=== PATIENT | male | born 1950 | race Caucasian/White ===

== ENCOUNTER → 2025-04-29 07:20 | Outpatient (REF) | payer MEDICARE, SELFPAY | LOC: RAD 07:20 | PROVIDERS: ATTENDING PHYSICIAN Surgery Vascular Surgery; FAMILY PHYSICIAN Internal Medicine | DX: I73.9 Peripheral vascular disease, unspecified (principal) | CPT/HCPCS: 93970 ==

== ENCOUNTER 2025-06-17 06:15 | Inpatient (IN) | payer MEDICARE, SELFPAY ==
[2025-06-14 10:15] LABS: Hematocrit 42.8 % (39.0-52.0); Hemoglobin 13.8 g/dL (13.0-18.0); Mean Corp Hgb Conc. 32.2 g/dL (33.0-37.0); Mean Corpuscular Volume 97.5 fL (80.0-94.0); Nucleated Red Blood Cells % 0 % (-); Platelet Count 235 10^3/uL (130-400); Red Cell Dist. Width 14.3 % (11.5-14.5)
[2025-06-14 10:23] LABS: INR 1.06; PT 14.1 Sec (11.4-14.6)
[2025-06-14 10:24] LABS: APTT 27.2 Sec (23.4-35.0)
[2025-06-14 10:42] LABS: Blood Urea Nitrogen 34 mg/dl (9-20); Calcium 9.5 mg/dl (8.4-10.2); Carbon Dioxide 26 mmol/L (22-30); Chloride 109 mmol/L (98-107); Glucose 105 mg/dl (70-99); Potassium 4.2 mmol/L (3.5-5.1); Sodium 140 mmol/L (135-145); eGFR 58.01
[2025-06-17] VITALS (9 sets, daily range): BP systolic 103–132; BP diastolic 57–67; BMI 31.2; BMI 30.9
[2025-06-17] MEDS: PERIDEX 0.12% ORAL RINSE 15 ML PO (06:50)
[2025-06-17] MEDS: BACTROBAN NASAL 1 GRAM NASAL (06:50)
--- NOTE | 2025-06-17 07:01 | W.SUR.PREOP ---
Pre-Operative Surgical Note
-
I have examined this patient prior to the performance of the scheduled procedure.
The patient's condition is unchanged from the time of the current History and
Physical and the patient is able to undergo the scheduled procedure.
--- NOTE | 2025-06-17 11:40 | OR.RPT ---
Operative Report
Operative Report
PROCEDURE DATE: 06/17/2025
Preoperative diagnosis:
1. Severe peripheral arterial disease.
2. Possible ischemic rest pain right leg.
Postoperative diagnosis: Same
Procedure: Right femoral to above-knee popliteal artery bypass with ipsilateral nonreversed greater saphenous vein conduit.
Surgeon: Kyle
Insurance Biller: ALEJANDRO Jacobo, required for all aspects of procedure including assistance with traction/gely, following a suture line, assistance with closure.
Complications: None
Anesthesia: General
Indications for procedure:
Patient with symptoms of pain in the right calf. Seems almost like an ischemic rest pain. Had significant peripheral arterial disease. Had nonhealing patch of reddened skin (no open ulceration though). Appeared like chronic venous changes.
However the amount of pain was atypical. In addition he described nighttime rest pain in that calf and having to get up or hang it down to improve it. Chronic long segment SFA occlusion but he did have common femoral and iliac plaque. Discussed
with him that extensive endarterectomy likely would not be easily feasible due to the lack of endpoints. Therefore planned femoral to distal bypass. Based on skin changes below the knee I favored bypass into the popliteal artery above the knee.
There was some mild plaque in the artery on CT scan imaging, but appeared reasonable. Risk/benefits/alternatives also discussed. Patient understood and wished to proceed.
Description of procedure:
Patient was identified brought to the operating room placed on the table in supine position. After the adequate administration of anesthesia the was prepped and draped in the standard surgical fashion. A standard preoperative timeout was
undertaken and everybody was in agreement the plan. A longitudinal incision was made in the right groin that was carried through skin subcutaneous tissue with the electrocautery. I dissected down to the level of the inguinal ligament. As I did so
any lymphatic type vessels were structures were ligated between silk ties and divided. I then dissected the common femoral artery as it emerged from underneath the inguinal ligament. I carefully circumferentially dissected here proximally and
passed a vessel loop around it. There was posterior plaque but it was somewhat soft and the remainder of the wall and had a reasonable pulse. I felt that this would be a proximal clamp point. I now continued dissection down the common femoral to
the bifurcation of the femoral vessels. The proximal SFA was dissected. There was an eccentric plaque near the origin as noted on CT scan, but just beyond that of the artery softened. The pulse did not extend into the SFA beyond here. I
carefully dissected the SFA here where it was softer and passed a vessel loop around. I then carefully dissected the origin of the profunda. I circumferentially dissected it and passed a vessel loop around it which was double looped but not yet
tightened.
Now I turned my attention to the distal thigh. I made a longitudinal incision in the medial distal thigh just proximal to the knee which was carried through skin subcutaneous tissue with the electrocautery. Next, I reflected the sartorius muscle
posteriorly and in the loose areolar fatty tissue, identified the popliteal artery superiorly. I carefully dissected away from the surrounding structures take great care to avoid any injury to the structures. I passed a vessel loop around the
proximally. I then dissected it for a segment and passed the vessel pointed distally. The segment was noted to be relatively soft and correlated likely to the soft area noted on CT scan imaging.
Now I had proximal and distal arterial exposure. I now turned my attention to harvesting the greater saphenous vein. Longitudinal skip type incisions were made in the thigh from proximally to distally. The greater saphenous vein was carefully
dissected out of its bed and any branches were ligated between silk ties and clips and then divided to allow for mobilization out of the bed. Once I dissected a suitable segment of greater saphenous vein, I then placed a 2-0 silk suture ligature
proximally and ligated the vein. This was a few centimeters distal to the saphenofemoral junction. I then ligated the vein distally with a heavy silk tie and a clip. I then transected the vein proximally distally. I distended under heparinized
saline and a distended very well.
I now uses a Abe tunneler to create a subsartorial tunnel. I now gave the patient 6008 symmetries heparin. Once this had circulated I tightened my double loop vessel loop on the profunda, and placed a Derra clamp on the proximal common femoral
artery. I now elected to transect the SFA since it was chronically occluded. Therefore I ligated the SFA distally in my field here in the groin. This was done with a heavy silk tie. Next I transected the artery. There was a bit of plaque here
at the origin which I was able to jerson out. Once I did that I was able to see that there was some circumferential eccentric plaque in the distal common femoral/origin of the SFA as noted on CT scan imaging but did not appear to cause any
significant stenosis. I gently placed a right angle through here to confirm that the lumen was widely patent. I therefore then spatulated this origin of the SFA, and then brought my vein into place. The vein was similarly spatulated and a
spatulated end-to-end anastomosis was fashioned using a running 6-0 Prolene suture. I completed and tied down my suture line. Next I released my Vesseloops and clamps on the [place] arterial system. There is now excellent pulsatile flow into the
vein graft. In fact the vein was heavily pulsatile suggesting that there was no residual valves that were patent. However to be sure I ran an mL valvulotome to valvulotomy eyes, and as suspected there was no valves. There was excellent pulsatile
flow in the vein now. I marked the anterior surface under distention to avoid any kinking or twisting and then passed it through my precreated tunnel.
I now placed a clamp on the distal above-knee popliteal artery and ligated the artery proximally with a heavy silk tie and a suture ligature as well. I then transected the popliteal artery here. The lumen was nicely patent. I then spatulated
this, and then trimmed and spatulated the vein graft. I then sewed an end-to-end spatulated anastomosis using a running 6-0 Prolene suture. Prior to completing and tying down the suture line I backbled the [place] popliteal artery and I flushed out
the graft by temporarily releasing the clamp I had placed on the proximal vein graft during anastomosis. I then flushed heparinized saline. I then completed and tied down my suture line. Now I released my clamps and there was excellent pulsatile
flow in the vein graft and in the popliteal artery distally anastomosis. Doppler confirmed an excellent signal in the popliteal artery as well as a significant graft augmented signal. At this point I was very satisfied.
Meticulous hemostasis was undertaken. Protamine was given to reverse the heparin. Incisional sites were irrigated. Arterial exposure sites were then closed in layers using 2-0 Vicryl followed by 3-0 Vicryl running suture followed by skin clips.
(Groin incision was closed with 2 layers of 2-0 Vicryl). The saphenectomy site was then closed with 3-0 Vicryl followed by skin clips. Dressings were applied. The patient tolerated procedure well. All sponge, needle, instrument counts were
correct at the end of the case. The patient was transported to recovery room in stable condition.
[2025-06-17 11:51] LABS: Glucose - Point of Care 132 mg/dl (70-99)
[2025-06-17 12:12] LABS: Hematocrit 35.0 % (39.0-52.0); Hemoglobin 11.8 g/dL (13.0-18.0); Mean Corp Hgb Conc. 33.7 g/dL (33.0-37.0); Mean Corpuscular Volume 96.7 fL (80.0-94.0); Platelet Count 198 10^3/uL (130-400); Red Cell Dist. Width 14.3 % (11.5-14.5)
[2025-06-17 12:31] LABS: Blood Urea Nitrogen 25 mg/dl (9-20); Calcium 8.1 mg/dl (8.4-10.2); Carbon Dioxide 24 mmol/L (22-30); Chloride 113 mmol/L (98-107); Estimated Creatinine Clearance 57 ml/min; Glucose 133 mg/dl (70-99); Potassium 4.6 mmol/L (3.5-5.1); Sodium 138 mmol/L (135-145); eGFR > 60.00
[2025-06-17] MEDS: NSS 1000 IV ×3 (13:06→23:37)
[2025-06-17] MEDS: ASPIR LOW (ENTERIC COATED) 81 MG PO (13:06)
[2025-06-17 13:09] LABS: Magnesium 1.8 mg/dl (1.6-2.3)
[2025-06-17 13:24] LABS: INR 1.17; PT 15.4 Sec (11.4-14.6)
[2025-06-17 13:25] LABS: APTT 30.4 Sec (23.4-35.0)
--- NOTE | 2025-06-17 13:37 | PTCARENOTE ---
Addendum entered by Hilary Mariee RN 06/17/25 13:39:
bolden draining yellow urine, ivf infusing as per order
Original Note:
pt received from pacu- aox4, 4LNC, sb on monitor. ekg completed, labs sent per order. left radial zeke zeroed and functioning. pt with no complaints at this time. right leg red in color, unchanged per private duty rn, right doppler pulses, good sensation.
dressings with old drainage noted. katelin intact and functioning. all safety precautions in place. oriented to room, verbalized understanding. call almodovar within reach.
--- NOTE | 2025-06-17 15:27 | CON.INTV ---
Consultation
Consultation Request
Date/Time Consultation Requested: 06/17/2025
Date/Time Consultation Performed: 06/17/2025
Medical History
-
Chief Complaint: Limb pain
History of Present Illness:
Patient is a very pleasant 74-year-old gentleman with known history of coronary artery disease, carotid stenosis, aortic aneurysm and was evaluated by vascular surgery as outpatient for symptoms of claudication as well as nonhealing ulcer. Patient
subsequently was brought to the hospital today and had femoral to above-knee popliteal artery bypass and postsurgery was admitted to the ICU. Implementation Services Analyst consultation was requested for further input.
PMH:
CAD. h/o [place]
Carotid stenosis
PVD
HLD
AAA
CKD
SH: Smokes since teenage, currently 10 cig/d.
Allergies / Home Medications
Allergies
Allergy/AdvReac Type Severity Reaction Status Date / Time
No Known Allergies Allergy Verified 06/17/25 07:21
Home Medications
�Medication �Instructions �Recorded �Confirmed �Last Taken �Type
atorvastatin 80 mg tablet 80 mg PO DAILY High Cholesterol 06/15/25 06/17/25 06/16/25 08:00 History
cholecalciferol (vitamin D3) 25 25 mcg PO DAILY Supplement 06/15/25 06/17/25 06/16/25 08:00 History
mcg (1,000 unit) tablet (Vitamin
D3)
clopidogrel 75 mg tablet 75 mg PO DAILY Blood Clot 06/15/25 06/17/25 06/16/25 08:00 History
Prevention/Tx
losartan 50 mg-hydrochlorothiazide 1 tab PO DAILY Blood Pressure 06/15/25 06/17/25 06/16/25 08:00 History
12.5 mg tablet
metoprolol succinate 25 mg 25 mg PO DAILY Heart 06/15/25 06/17/25 06/16/25 08:00 History
tablet,extended release 24 hr Disease/Condition
zaxgggfhrycc-diu-qaxjo acid-vit 1 tab PO DAILY Supplement 07/06/17/25 06/16/25 08:00 History
K-lycop 400 mcg-20 mcg-370 mcg
tablet (Men's 50 Plus Multivitamin)
Review of Systems
-
Hematologic/Lymphatic: Other (All 14 systems reviewed and negative except as stated above in the history of present illness.)
Vitals / Labs / Diagnostic Testing
Vital Signs
Temp Pulse Resp BP Pulse Ox
98.7 F 67 26 125/57 96
06/17/25 13:25 06/17/25 15:00 06/17/25 15:00 06/17/25 14:00 06/17/25 15:00
Lab Data
06/17/25 11:58
06/17/25 11:58
Laboratory Results
06/17/25
12:51
PT 15.4 H
INR 1.17
APTT 30.4
Diagnostic Testing:
Physical Exam
-
HEENT: Normocephalic
Cardiovascular: S1/S2 and Peripheral Edema
Respiratory: Wheeze (Faint end expiratory wheezing, AP diameter increased, expiration prolonged)
GI: Soft and Non Distended
Neurology: Awake and Alert
General: Comfortable
Assessment
-
Patient is s/p Right femoral to above-knee popliteal artery bypass with ipsilateral nonreversed greater saphenous vein conduit by vascular surgery service, POD #0
Continue observation following procedure
Follow neurovascular checks per protocol
ASA, Plavix, metoprolol and atorvastatin.
Follow BP monitoring and parameters as set by primary team
Cardiac history noted, prior history of myocardial infarction
Monitor on telemetry
Pain control per protocol
RASS goal 0
No prior history of pulmonary disease, however lifelong smoking history and I suspect patient has underlying emphysema/COPD.
CXR reviewed, suggestive of mild interstitial changes in the lower lobes.
No prior PFTs for review
Encouraged IS
Diet advancement per protocol
Aspiration precautions
GI prophylaxis: Protonix
Creat at baseline, follow UO
Critical I/Os
Void trials
Replete electrolytes as needed
No signs/symptoms suspicious for infectious etiology at this time
Will observe off antibiotics for now
Follow temperatures/CBC
Hb and platelets postoperatively stable
DVT prophylaxis recommended if not contraindicated based on procedural history -- heparin SQ and mechanical SCDs
Encouraged OOB/PT/OT/ambulation once cleared by surgical team
Other medical diagnoses:
- H/o CAD
- Pulmonary nodule, 4 mm. Out patient follow up
- CKD
- AAA
- Carotid stenosis
- History of smoking, suspect underlying COPD. Imaging evidence of emphysema, mild end expiratory wheezing and occasional cough. Recommend out patient follow up with Pulmonary clinic. Add PRN Albuterol
Critical Care time 45 mins -- The patient is admitted for acute critical illness for the treatment of vital organ failure and/or prevention of further life-threatening conditions. Total care includes time spent in review of history, physical exam,
medications, hemodynamic/ventilator parameters, laboratory data, imaging and discussion with house staff, pharmacy, respiratory therapy, process laboratory specialist, and nursing.
Data:
ECHO 03/2023: Normal LV size and function, mild concentric LVH. Normal RV. No significant valvular disease.
CT Thorax 08/2024: Stable 4 mm nodule, emphysematous changes
CTA Aorta 12/2024: 4.6 cmm infra-renal AAA. High grade stenosis of Left common iliac artery
LHC 03/2023: Left main normal. LAD proximal 90% stenosis. LCx ostial 50% with distal 70%. RCA diffuse proximal and 95% stenosis mid vessel
[2025-06-17] MEDS: HEPARIN 5000 UNITS SC ×2 (16:28→23:13)
[2025-06-17] MEDS: TYLENOL 650 MG PO (16:28)
--- NOTE | 2025-06-17 23:41 | PTCARENOTE ---
UOP ranging from 20-45ml last few hours, ICU TALEND DEVELOPER aware, 1L NS bolus ordered. neurovascular checks ongoing, aquacell x3 with small amt drainage, + RLE DP and PT pulses w/ Doppler. pt denies pain/numbness/tingling. call almodovar in reach.
[2025-06-18] VITALS (16 sets, daily range): BP systolic 103–138; BP diastolic 51–78; BMI 31.0
[2025-06-18 04:56] LABS: Hematocrit 33.1 % (39.0-52.0); Hemoglobin 10.8 g/dL (13.0-18.0); Mean Corp Hgb Conc. 32.6 g/dL (33.0-37.0); Mean Corpuscular Volume 99.1 fL (80.0-94.0); Platelet Count 194 10^3/uL (130-400); Red Cell Dist. Width 13.9 % (11.5-14.5)
[2025-06-18 05:02] LABS: INR 1.19; PT 15.6 Sec (11.4-14.6)
[2025-06-18 05:03] LABS: APTT 29.9 Sec (23.4-35.0)
[2025-06-18 05:20] LABS: Blood Urea Nitrogen 23 mg/dl (9-20); Calcium 7.9 mg/dl (8.4-10.2); Carbon Dioxide 22 mmol/L (22-30); Chloride 114 mmol/L (98-107); Estimated Creatinine Clearance 68 ml/min; Glucose 128 mg/dl (70-99); Potassium 4.3 mmol/L (3.5-5.1); Sodium 139 mmol/L (135-145); eGFR > 60.00
--- NOTE | 2025-06-18 06:09 | PTCARENOTE ---
AM labs sent, neurovascular checks unchanged, pt offers no complaints. UOP improved, see flowsheet. call almodovar in reach
[2025-06-18] MEDS: PROTONIX 40 MG PO (07:57)
[2025-06-18] MEDS: LIPITOR 80 MG PO (07:57)
[2025-06-18] MEDS: COZAAR 50 MG PO (07:57)
[2025-06-18] MEDS: ORETIC 12.5 MG PO (07:57)
[2025-06-18] MEDS: HEPARIN 5000 UNITS SC ×3 (07:57→23:09)
[2025-06-18] MEDS: PLAVIX 75 MG PO (07:57)
[2025-06-18] MEDS: VITAMIN D3 (cholecalciferol) 25 MCG PO (07:57)
[2025-06-18] MEDS: TOPROL XL 25 MG PO (07:57)
[2025-06-18] MEDS: THERAGRAN 1 TABLET PO (07:57)
[2025-06-18] MEDS: ASPIR LOW (ENTERIC COATED) 81 MG PO (07:57)
--- NOTE | 2025-06-18 08:15 | PTCARENOTE ---
pt received from previous rn- aox4, nsr to sb on monitor, left radial zeke zeroed and functioning, positional at times. pt on 2LNC. pt denies pain or has any complaints at this time. right leg katelin intact, aquacel dressings with old drainage noted.
pt able to move extremity, good sensation, doppler pulses. all safety precautions in place, call almodovar within reach. pt verbalized understanding to education and plan of care.
--- NOTE | 2025-06-18 11:51 | CM ---
POD #1, fem-pop bypass. Initial assessment completed with nellie who lives with his and step-daughter in a 2 story home plus basement with B/B on 1st, 4 steps to enter. 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
Patient also has a RW in the home. He does drive. No in-home services. He was in the [facility]. No HC-POA. PCP is Dr. Adelia Gonsalez and Pharmacy is [facility] in [place]. Discharge POC: TBD.
--- NOTE | 2025-06-18 12:16 | W.PN.INTV ---
Today's Communication / Plan
Recommendations
- Will arrange outpatient pulmonary follow-up
- Truck Striker service will sign off once patient is transferred out of ICU, please call as needed
Assessment
-
Patient is s/p Right femoral to above-knee popliteal artery bypass with ipsilateral nonreversed greater saphenous vein conduit by vascular surgery service, POD #1
Continue observation following procedure
Follow neurovascular checks per protocol
ASA, Plavix, metoprolol and atorvastatin.
Follow BP monitoring and parameters as set by primary team
Cardiac history noted, prior history of myocardial infarction
Monitor on telemetry
Pain control per protocol
RASS goal 0
No prior history of pulmonary disease, however lifelong smoking history and I suspect patient has underlying emphysema/COPD.
CXR reviewed, suggestive of mild interstitial changes in the lower lobes.
No prior PFTs for review
Encouraged IS
Diet advancement per protocol
Aspiration precautions
GI prophylaxis: Protonix
Creat at baseline, follow UO
Critical I/Os
Void trials
Replete electrolytes as needed
No signs/symptoms suspicious for infectious etiology at this time
Will observe off antibiotics for now
Follow temperatures/CBC
Hb and platelets postoperatively stable
DVT prophylaxis recommended if not contraindicated based on procedural history -- heparin SQ and mechanical SCDs
Encouraged OOB/PT/OT/ambulation once cleared by surgical team
Other medical diagnoses:
- H/o CAD
- Pulmonary nodule, 4 mm. Out patient follow up
- CKD
- AAA
- Carotid stenosis
- History of smoking, suspect underlying COPD. Imaging evidence of emphysema, mild end expiratory wheezing and occasional cough. Recommend out patient follow up with Pulmonary clinic. Add PRN Albuterol. We discussed about empirically starting a
LAMA/LABA therapy, patient reluctant to initiate any inhalers and is agreeable for outpatient pulmonary follow-up. Information added to the discharge section.
Critical Care time 42 mins -- The patient is admitted for acute critical illness for the treatment of vital organ failure and/or prevention of further life-threatening conditions. Total care includes time spent in review of history, physical exam,
medications, hemodynamic/ventilator parameters, laboratory data, imaging and discussion with house staff, pharmacy, respiratory therapy, cattle care worker, and nursing.
Data:
ECHO 03/2023: Normal LV size and function, mild concentric LVH. Normal RV. No significant valvular disease.
CT Thorax 08/2024: Stable 4 mm nodule, emphysematous changes
CTA Aorta 12/2024: 4.6 cmm infra-renal AAA. High grade stenosis of Left common iliac artery
LHC 03/2023: Left main normal. LAD proximal 90% stenosis. LCx ostial 50% with distal 70%. RCA diffuse proximal and 95% stenosis mid vessel
Subjective Dataa
Subjective Data
Date of Service:
Date of Service: June 18, 2025
Subjective:
Patient comfortably lying in bed in no acute distress. Saturating well on room air. Hemodynamically stable not on any pressors.
Review of Systems
Genitourinary: Other (All 14 systems reviewed and negative except as stated above in the history of present illness.)
Objective Data
Data Reviewed
Vital Signs / I&O / Oxygen:
Vital Signs
Temp Pulse Resp BP Pulse Ox
98.6 F 56 19 138/65 97
06/18/25 11:55 06/18/25 10:00 06/18/25 10:00 06/18/25 08:00 06/18/25 10:00
Intake and Output
06/17/25 06/18/25 06/19/25
06:59 06:59 06:59
Intake Total 2320 / 2400 320 / 320
Output Total 1115 / 1190 300 / 300
Balance 1205 / 1210 20 / 20
SaO2 97
Nasal Cannula flow liters per 2
minute
Physical Exam
General: Comfortable
HEENT: Normocephalic
Cardiovascular: S1-S2
Respiratory: Wheeze (Faint end expiratory wheezing)
GI: Soft and Non Distended
Neurology: Awake and Alert
Skin: Warm
Labs/Micro/Reports
Lab Data
06/18/25 04:39
06/18/25 04:39
Laboratory Results
06/17/25 06/18/25
12:51 04:39
PT 15.4 H 15.6 H
INR 1.17 1.19
APTT 30.4 29.9
[2025-06-18] MEDS: ROXICODONE 5 MG PO ×2 (12:49→23:09)
--- NOTE | 2025-06-18 12:51 | PTCARENOTE ---
a line removed per order, ivf d/c. pt oob with 3 assist and cane to chair. bolden removed, pt voided.
--- NOTE | 2025-06-18 13:46 | W.PN.VS ---
Addendum entered and electronically signed by Wu Hernández III, MD 06/18/25 20:36:
This patient was seen and examined in collaboration with KENDALL Kaiser. I agree with the history and physical exam as well as the assessment and plan. I have the following additions:
Overall doing well postop day 1 from right lower extremity bypass
Agree with plan as detailed
Signed:
Wu Hernández III, MD
Vascular Surgery
[facility]
Original Note:
Today's Communication / Plan
-
See below, plan reviewed with attending Dr. Wu Hernández III.
Assessment/Plan
-
Assessment: 74-year-old male POD #1 Right femoral to above-knee popliteal artery bypass with ipsilateral nonreversed greater saphenous vein conduit.
Plan:
Discontinue Hernández catheter
Discontinue arterial line
Discontinue IV fluids
Continue DAPT of 81 mg p.o. daily with Plavix 75 mg p.o. daily while in the immediate postoperative period, will transition to Compass protocol of 81 mg p.o. daily with low-dose Xarelto 2.5 mg p.o. twice daily upon discharge
OOB to chair today
Physical therapy tomorrow
Continue to encourage incentive spirometry
Subjective Data
-
Date of Service: June 18, 2025
Patient seen and examined at bedside, offers no complaints. Reports adequate postoperative pain management. Denies nausea, vomiting, fever, and chills. Reports tolerating p.o. diet.
Objective Data
-
Vital Signs
Temp Pulse Resp BP Pulse Ox
98.6 F 58 22 125/54 97
06/18/25 11:55 06/18/25 13:00 06/18/25 13:00 06/18/25 13:00 06/18/25 10:00
Intake and Output
06/17/25 06/18/25 06/19/25
06:59 06:59 06:59
Intake Total 2320 / 2400 480 / 480
Output Total 1115 / 1190 600 / 600
Balance 1205 / 1210 -120 / -120
Intake:
Oral fluids 830 / 830
IV fluids (Total) 1490 / 1570 480 / 480
NSS 1490 / 1570 480 / 480
Output:
Urine, Hernández 1115 / 1190 600 / 600
Lab Results
06/18/25 04:39
06/18/25 04:39
Calcium 7.9 mg/dl (8.4-10.2) L 06/18/25 04:39
Phosphorus 3.8 mg/dl (2.5-4.5) 06/17/25 11:58
Magnesium 1.8 mg/dl (1.6-2.3) 06/17/25 11:58
Physical Exam
-
No apparent distress, resting in bed comfortably
No tachycardia
No dyspnea on room air
ABD flat, nontender, nondistended
Right lower extremity surgical dressing dry and intact, trace edema right lower extremity, all compartments soft, no evidence of hematoma, right DP and PT Doppler signal, right foot warm
Hernández draining clear yellow urine
--- NOTE | 2025-06-18 17:19 | PTCARENOTE ---
assessment unchanged, pt oob to chair for approx 5 hours. no complaints at this time.
--- NOTE | 2025-06-18 20:30 | PTCARENOTE ---
Rec'd pt from previous shift resting in bed with no reported pain. Pt moving self in bed/changing position. Alert and oriented, pleasant. Afebrile. NSR on monitor. Pulses palpable, no edema. Doppler signals B/L lower extremities DP/PT. RLE red/warm.
No numbness/tingling per patient. Q4h checks. 2L nasal cannula 94%Sat, expiratory wheeze and nonproductive cough as previously noted. Pt current smoker. Educated on cessation. Tolerating cholesterol lowering diet. Hernández removed on previous shift.
Voiding in urinal. Aquacell dressing on RLE as documented. SHIRLEY X1. Will monitor.
[2025-06-19] VITALS (21 sets, daily range): BP systolic 97–138; BP diastolic 52–103; PULSE 78–103; O2SAT 93
--- NOTE | 2025-06-19 00:30 | PTCARENOTE ---
No change in previous assessment. Oxy given for moderate pain. Pulses via doppler remain strong. Will monitor.
[2025-06-19 05:27] LABS: Hematocrit 33.8 % (39.0-52.0); Hemoglobin 10.9 g/dL (13.0-18.0); Mean Corp Hgb Conc. 32.2 g/dL (33.0-37.0); Mean Corpuscular Volume 98.8 fL (80.0-94.0); Platelet Count 199 10^3/uL (130-400); Red Cell Dist. Width 14.6 % (11.5-14.5)
[2025-06-19 05:49] LABS: Blood Urea Nitrogen 22 mg/dl (9-20); Calcium 8.3 mg/dl (8.4-10.2); Carbon Dioxide 25 mmol/L (22-30); Chloride 110 mmol/L (98-107); Estimated Creatinine Clearance 68 ml/min; Glucose 99 mg/dl (70-99); Magnesium 2.0 mg/dl (1.6-2.3); Potassium 4.7 mmol/L (3.5-5.1); Sodium 139 mmol/L (135-145); eGFR > 60.00
[2025-06-19] MEDS: ROXICODONE 5 MG PO ×2 (06:44→10:49)
--- NOTE | 2025-06-19 07:45 | PTCARENOTE ---
Assumed care of patient. Pt rec'd A&Ox3. Pleasant. Rec'd usman for right groin pain...see mar. S1 S2 reg w/ NSR on monitor. RLL red and warm...DP/PT's by doppler. Left leg pale and cool...DP by doppler...unable to obtain PT by doppler. Joanna
Donnell ALEXANDRE aware. q4h neurovascular checks per MD orders. Rec'd on R/A...sats 93-94%. Moist NPC. Lungs diminished in bases...clear right...left w/ exp wheezing throughout. Abdomen round. +BS. Voids in urinal. Right groin w/ SHIRLEY drsg. Right leg
w/ 3 aquacell dressings...drainage noted. Intact sacral optifoam. Takes po meds w/o issue. On cholesterol lowering diet. VS documented. Call almodovar within reach. Will continue to monitor.
--- NOTE | 2025-06-19 08:15 | W.PN.VS ---
Today's Communication / Plan
-
Patient seen and examined at bedside with attending Dr. Tesfaye, below plan reviewed with attending.
Assessment/Plan
-
Assessment: 74-year-old male POD #2 Right femoral to above-knee popliteal artery bypass with ipsilateral nonreversed greater saphenous vein conduit.
Plan:
Continue DAPT of 81 mg p.o. daily with Plavix 75 mg p.o. daily while in the immediate postoperative period, will transition to Compass protocol of 81 mg p.o. daily with low-dose Xarelto 2.5 mg p.o. twice daily upon discharge
OOB to chair, with progression to ambulation as tolerated
Physical therapy eval
Downgrade to telemetry
Continue to encourage incentive spirometry
Subjective Data
-
Date of Service: June 19, 2025
Patient seen examined bedside, offers no complaints. Denies nausea, vomiting, fever, and chills. Tolerating p.o. diet. Reports adequate postoperative pain management.
Objective Data
-
Vital Signs
Temp Pulse Resp BP Pulse Ox
98 F 79 18 130/80 91
06/18/25 23:35 06/19/25 08:02 06/19/25 08:02 06/19/25 08:02 06/19/25 08:02
Intake and Output
06/18/25 06/19/25 06/20/25
06:59 06:59 06:59
Intake Total 2320 / 2400 720 / 720
Output Total 1115 / 1190 1500 / 1500
Balance 1205 / 1210 -780 / -780
Intake:
Oral fluids 830 / 830 240 / 240
IV fluids (Total) 1490 / 1570 480 / 480
NSS 1490 / 1570 480 / 480
Output:
Urine, Hernández 1115 / 1190 1500 / 1500
Lab Results
06/19/25 04:59
06/19/25 04:59
Calcium 8.3 mg/dl (8.4-10.2) L 06/19/25 04:59
Phosphorus 3.8 mg/dl (2.5-4.5) 06/17/25 11:58
Magnesium 2.0 mg/dl (1.6-2.3) 06/19/25 04:59
Physical Exam
-
No apparent distress, resting in bed comfortably
No tachycardia
No dyspnea on room air
ABD flat, nontender, nondistended
Right lower extremity surgical dressing dry and intact, trace edema right lower extremity, all compartments soft, no evidence of hematoma, right DP and PT Doppler signal, right foot warm
[2025-06-19] MEDS: TOPROL XL 25 MG PO (09:57)
[2025-06-19] MEDS: ASPIR LOW (ENTERIC COATED) 81 MG PO (09:57)
[2025-06-19] MEDS: PROTONIX 40 MG PO (09:57)
[2025-06-19] MEDS: ORETIC 12.5 MG PO (09:58)
[2025-06-19] MEDS: PLAVIX 75 MG PO (09:58)
[2025-06-19] MEDS: COZAAR 50 MG PO (09:59)
[2025-06-19] MEDS: VITAMIN D3 (cholecalciferol) 25 MCG PO (09:59)
[2025-06-19] MEDS: LIPITOR 80 MG PO (09:59)
[2025-06-19] MEDS: HEPARIN 5000 UNITS SC ×3 (10:00→23:31)
[2025-06-19] MEDS: THERAGRAN 1 TABLET PO (10:00)
--- NOTE | 2025-06-19 10:30 | PTCARENOTE ---
Seen by PT/OT...OOB in chair...assist x2 and using rolling walker.
--- NOTE | 2025-06-19 10:52 | CM ---
Patient seen at bedside in ICU. Patient for transfer to tele per vascular pa. Patient hoping for discharge home with VN if needed. CM to follow for discharge planning needs.
Plan; home with VN vs SNF; pending pt/ot assessment
--- NOTE | 2025-06-19 13:31 | PTCARENOTE ---
Tx to tele when bed available. Family updated at bedside.
--- NOTE | 2025-06-19 14:28 | PTCARENOTE ---
Report given to RN on 2nd floor. Pt to transfer to Room 2103.
--- NOTE | 2025-06-19 14:55 | PTCARENOTE ---
Telephone report received from QUALITY CONTROL MICROBIOLOGIST Cyn @14:10; patient arrived in bed @14:55, PECO drain minor shadowing, 3 Aquacell dressing moderate shadowing, VSS, doppler use for pulses (see documentation).
[2025-06-20] VITALS (7 sets, daily range): BP systolic 92–126; BP diastolic 59–76; PULSE 69; O2SAT 95
[2025-06-20 06:21] LABS: Hematocrit 33.8 % (39.0-52.0); Hemoglobin 11.1 g/dL (13.0-18.0); Mean Corp Hgb Conc. 32.8 g/dL (33.0-37.0); Mean Corpuscular Volume 97.7 fL (80.0-94.0); Platelet Count 198 10^3/uL (130-400); Red Cell Dist. Width 14.6 % (11.5-14.5)
[2025-06-20 06:48] LABS: Blood Urea Nitrogen 21 mg/dl (9-20); Calcium 8.2 mg/dl (8.4-10.2); Carbon Dioxide 26 mmol/L (22-30); Chloride 107 mmol/L (98-107); Estimated Creatinine Clearance 62 ml/min; Glucose 104 mg/dl (70-99); Potassium 4.2 mmol/L (3.5-5.1); Sodium 136 mmol/L (135-145); eGFR > 60.00
[2025-06-20] MEDS: THERAGRAN 1 TABLET PO (09:25)
[2025-06-20] MEDS: PLAVIX 75 MG PO (09:25)
[2025-06-20] MEDS: ASPIR LOW (ENTERIC COATED) 81 MG PO (09:25)
[2025-06-20] MEDS: TOPROL XL 25 MG PO (09:25)
[2025-06-20] MEDS: VITAMIN D3 (cholecalciferol) 25 MCG PO (09:26)
[2025-06-20] MEDS: LIPITOR 80 MG PO (09:26)
[2025-06-20] MEDS: COZAAR 50 MG PO (09:26)
[2025-06-20] MEDS: ORETIC 12.5 MG PO (09:26)
[2025-06-20] MEDS: PROTONIX 40 MG PO (09:26)
[2025-06-20] MEDS: HEPARIN 5000 UNITS SC ×2 (09:27→16:51)
--- NOTE | 2025-06-20 13:07 | W.PN.VS ---
Today's Communication / Plan
-
No changes
Assessment/Plan
-
Assessment: 74-year-old male POD #3 Right femoral to above-knee popliteal artery bypass with ipsilateral nonreversed greater saphenous vein conduit.
Plan:
Compass protocol of 81 mg p.o. daily with low-dose Xarelto 2.5 mg p.o. twice daily upon discharge
OOB to chair, with progression to ambulation as tolerated
Physical therapy eval
Continue to encourage incentive spirometry
DC planning
Subjective Data
-
Date of Service: June 20, 2025
Seen and examined at bedside. MARTY.
Objective Data
-
Vital Signs
Temp Pulse Resp BP Pulse Ox
98.8 F 70 16 122/74 98
06/20/25 11:00 06/20/25 11:00 06/20/25 11:00 06/20/25 11:00 06/20/25 11:00
Intake and Output
06/19/25 06/20/25 06/21/25
06:59 06:59 06:59
Intake Total 720 / 720 480 / 480
Output Total 1500 / 1500 1800 / 1800 350 / 350
Balance -780 / -780 -1320 / -1320 -350 / -350
Intake:
Oral fluids 240 / 240 480 / 480
IV fluids (Total) 480 / 480
NSS 480 / 480
Output:
Urine, Hernández 1500 / 1500 250 / 250
Urine, Voided 1550 / 1550 350 / 350
Lab Results
06/20/25 04:16
06/20/25 04:16
Calcium 8.2 mg/dl (8.4-10.2) L 06/20/25 04:16
Phosphorus 3.8 mg/dl (2.5-4.5) 06/17/25 11:58
Magnesium 2.0 mg/dl (1.6-2.3) 06/19/25 04:59
Physical Exam
-
RLE warm and well perfused with C/D/I incisions
[2025-06-20] MEDS: ROXICODONE 5 MG PO (15:49)
[2025-06-21] VITALS (9 sets, daily range): BP systolic 92–108; BP diastolic 55–65; PULSE 76
[2025-06-21] MEDS: HEPARIN 5000 UNITS SC ×4 (00:44→23:14)
[2025-06-21] MEDS: ROXICODONE 5 MG PO ×2 (01:21→21:42)
[2025-06-21] MEDS: ORETIC 12.5 MG PO (08:52)
[2025-06-21] MEDS: TOPROL XL 25 MG PO (08:53)
[2025-06-21] MEDS: PROTONIX 40 MG PO (08:54)
[2025-06-21] MEDS: ASPIR LOW (ENTERIC COATED) 81 MG PO (08:54)
[2025-06-21] MEDS: THERAGRAN 1 TABLET PO (08:54)
[2025-06-21] MEDS: VITAMIN D3 (cholecalciferol) 25 MCG PO (08:54)
[2025-06-21] MEDS: LIPITOR 80 MG PO (08:54)
[2025-06-21] MEDS: PLAVIX 75 MG PO (08:54)
[2025-06-21] MEDS: COZAAR 50 MG PO (08:55)
[2025-06-21 09:19] LABS: Hematocrit 33.2 % (39.0-52.0); Hemoglobin 10.9 g/dL (13.0-18.0); Mean Corp Hgb Conc. 32.8 g/dL (33.0-37.0); Mean Corpuscular Volume 96.2 fL (80.0-94.0); Platelet Count 228 10^3/uL (130-400); Red Cell Dist. Width 14.6 % (11.5-14.5)
[2025-06-21 09:32] LABS: Blood Urea Nitrogen 26 mg/dl (9-20); Calcium 8.4 mg/dl (8.4-10.2); Carbon Dioxide 27 mmol/L (22-30); Chloride 106 mmol/L (98-107); Estimated Creatinine Clearance 52 ml/min; Glucose 147 mg/dl (70-99); Potassium 3.8 mmol/L (3.5-5.1); Sodium 137 mmol/L (135-145); eGFR 58.01
--- NOTE | 2025-06-21 10:06 | CM ---
Addendum entered by Nandini Blake 06/21/25 16:43:
Cost of Xarelto is $874 for a 90 day supply.
Original Note:
Chart reviewed and case management associate met with patient and reviewed physical therapy notes, patient is agreeable to rehab, options reviewed with patient and patient has selected [facility] and [facility], PM&R have been consulted, message left with
[facility]. Referrals sent to rehab facilities through [facility]. .
Plan; Acute rehab at [facility] or [facility] referrals sent Auth will be required.
--- NOTE | 2025-06-21 11:15 | W.PN.VS ---
Addendum entered and electronically signed by KENDALL Kaiser 06/21/25 17:17:
Did not administer Lasix as patient with SBP in the low 100s/90s, hector wrap place to knee, will monitor.
Original Note:
Today's Communication / Plan
-
Plan reviewed with attending Dr. Wu Hernández III
Assessment/Plan
-
Assessment: 74-year-old male POD #3 Right femoral to above-knee popliteal artery bypass with ipsilateral nonreversed greater saphenous vein conduit.
Plan:
Compass protocol of 81 mg p.o. daily with low-dose Xarelto 2.5 mg p.o. twice daily upon discharge, consult placed to case management to aguilar out l Xarelto
OOB to chair, with progression to ambulation as tolerated
Physical therapy eval
Continue to encourage incentive spirometry
Patient noted with increased swelling to right lower extremity, mild from baseline, one-time dose of Lasix and leg wrap from base of toes to knee
DC planning, case management consult placed for SNF versus rehab placement per recommendations of physical therapy
Physiatry consultation pending
Subjective Data
-
Date of Service: June 21, 2025
Patient seen and examined at bedside, offers no complaints. Does endorse limited movement of right lower extremity related to pain otherwise at rest pain is well-managed. Denies nausea, vomiting, fever, and chills.
Objective Data
-
Vital Signs
Temp Pulse Resp BP Pulse Ox
98.4 F 78 18 106/66 97
06/21/25 07:10 06/21/25 08:55 06/21/25 07:10 06/21/25 08:55 06/21/25 07:10
Intake and Output
06/20/25 06/21/25 06/22/25
06:59 06:59 06:59
Intake Total 480 / 480 480 / 480
Output Total 1800 / 1800 1000 / 1000
Balance -1320 / -1320 -520 / -520
Intake:
Oral fluids 480 / 480 480 / 480
Output:
Urine, Hernández 250 / 250
Urine, Voided 1550 / 1550 1000 / 1000
Lab Results
06/21/25 09:07
06/21/25 09:07
Calcium 8.4 mg/dl (8.4-10.2) 06/21/25 09:07
Phosphorus 3.8 mg/dl (2.5-4.5) 06/17/25 11:58
Magnesium 2.0 mg/dl (1.6-2.3) 06/19/25 04:59
Physical Exam
-
No apparent distress, resting in bed comfortably
No tachycardia
No dyspnea on room air
ABD flat, nontender, nondistended
Right lower extremity surgical dressing katelin dressing dry and intact, +1 edema right lower extremity, all compartments soft, no evidence of hematoma, right DP and PT Doppler signal, right foot warm, all Aquacel dressings removed, staple sites clean
dry and intact and well-approximated
[2025-06-21] MEDS: DULCOLAX RECTAL (11:44)
[2025-06-21] MEDS: KLOR-CON 20 MEQ PO (16:49)
--- NOTE | 2025-06-22 02:22 | DOWNTIME ---
There was a [employer] Operator Downtime on 06/22/2025 from 0100 to 06/22/2025 at 0220. Downtime documentation of patient's care, including medication administrations, has been reconciled in the electronic record per guidelines. Refer to the
patient's paper chart under the miscellaneous tab to see printed paper medication records and downtime forms.
[2025-06-22 03:36] VITALS: BP 99/55
[2025-06-22 06:29] LABS: Blood Urea Nitrogen 34 mg/dl (9-20); Calcium 8.3 mg/dl (8.4-10.2); Carbon Dioxide 26 mmol/L (22-30); Chloride 105 mmol/L (98-107); Estimated Creatinine Clearance 52 ml/min; Glucose 110 mg/dl (70-99); Potassium 4.3 mmol/L (3.5-5.1); Sodium 136 mmol/L (135-145); eGFR 58.01
[2025-06-22 07:40] VITALS: BP 88/58
--- NOTE | 2025-06-22 08:02 | W.PN.VS ---
Addendum entered and electronically signed by Wu Hernández III, MD 06/22/25 18:02:
This patient was seen and examined in collaboration with KENDALL Kaiser. I agree with the history and physical exam as well as the assessment and plan.
Signed:
Wu Hernández III, MD
Vascular Surgery
[facility]
Original Note:
Today's Communication / Plan
-
Patient seen and examined at bedside with Dr. Wu Hernández III, below plan reviewed with attending.
Assessment/Plan
-
Assessment: 74-year-old male POD #4 Right femoral to above-knee popliteal artery bypass with ipsilateral nonreversed greater saphenous vein conduit.
Plan:
Unfortunately Kiran will cost patient $824 for 90-day supply, he has expressed that he cannot afford this so we will continue DAPT of Plavix 75 mg p.o. daily and aspirin 81 mg p.o. daily
OOB to chair, with progression to ambulation as tolerated
Physical therapy eval
Continue to encourage incentive spirometry
Patient noted with increased swelling to right lower extremity yesterday, much improved following Richar wrap compression to knee and elevation
Patient is cleared for discharge awaiting rehab placement
Physiatry consultation pending
Subjective Data
-
Date of Service: June 22, 2025
Patient seen and examined at bedside, reports eagerness for next steps to discharge. Reports adequate postoperative pain management. Offers no complaints
Objective Data
-
Vital Signs
Temp Pulse Resp BP Pulse Ox
98.7 F 70 18 99/55 93
06/22/25 03:36 06/22/25 03:36 06/22/25 03:36 06/22/25 03:36 06/22/25 03:36
Intake and Output
06/21/25 06/22/25 06/23/25
06:59 06:59 06:59
Intake Total 480 / 480 240 / 240 480 / 480
Output Total 1000 / 1000 350 / 350
Balance -520 / -520 -110 / -110 480 / 480
Intake:
Oral fluids 480 / 480 240 / 240 480 / 480
Output:
Urine, Voided 1000 / 1000 350 / 350
Other:
Number of approximated SMALL 1
amounts of urine
Number of approximated MODERATE 1 2
amounts of urine
Lab Results
06/21/25 09:07
06/22/25 05:31
Calcium 8.3 mg/dl (8.4-10.2) L 06/22/25 05:31
Phosphorus 3.8 mg/dl (2.5-4.5) 06/17/25 11:58
Magnesium 2.0 mg/dl (1.6-2.3) 06/19/25 04:59
Physical Exam
-
No apparent distress, resting in bed comfortably
No tachycardia
No dyspnea on room air
ABD flat, nontender, nondistended
Right lower extremity surgical dressing katelin dressing dry and intact, trace edema right lower extremity, all compartments soft, no evidence of hematoma, right DP and PT Doppler signal, right foot warm, enid well-approximated
[2025-06-22] MEDS: PROTONIX 40 MG PO (09:16)
[2025-06-22] MEDS: THERAGRAN 1 TABLET PO (09:17)
[2025-06-22] MEDS: HEPARIN 5000 UNITS SC ×3 (09:17→23:21)
[2025-06-22] MEDS: VITAMIN D3 (cholecalciferol) 25 MCG PO (09:17)
[2025-06-22] MEDS: ASPIR LOW (ENTERIC COATED) 81 MG PO (09:17)
[2025-06-22] MEDS: LIPITOR 80 MG PO (09:17)
[2025-06-22] MEDS: PLAVIX 75 MG PO (09:17)
[2025-06-22] MEDS: ORETIC 12.5 MG PO (09:25)
[2025-06-22] MEDS: TOPROL XL 25 MG PO (09:25)
[2025-06-22] MEDS: COZAAR 50 MG PO (09:26)
[2025-06-22 11:10] VITALS: BP 102/91
--- NOTE | 2025-06-22 11:46 | CM ---
Patient seen at bedside on . Patient confirmed plan for Acute Rehab and per liaison at [facility] bed available today. CM will start auth process. Jonathan PIERRE [id number]/Dr. Barriga [id number]. CM will continue to follow for discharge planning needs.
Plan; Acute rehab pending auth
--- NOTE | 2025-06-22 13:46 | CON.MD ---
Consultation - Medical
-
Chief Complaint:�Debility
�
History of Present Illness:�74-year-old right-handed male with PMH (as below) presented to [facility] on 06/17/2025 for an elective right femoral to [id number] popliteal artery bypass with ipsilateral nonreversed greater saphenous vein
conduit by Dr. Natalio Wright for claudication and nonhealing ulcer. Overall patient is feeling better. He has problems in the left foot as well including some decrease in sensation. He feels that the sensation in the right foot is now back to normal.
�
Past Medical History:�PAD, CKD stage II, mixed hyperlipidemia, HTN, nicotine dependence, peripheral vascular disease, aortic aneurysm, CAD, ST elevation myocardial infarction, carotid stenosis
Procedure History:�Cardiac stents
�
Social History:�
Functional Level Premorbidly:�Modified independent with all activities�
Functional Level Currently:�Max assist lower extremity self-care, min assist toilet transfer. Min assist ambulating 30 feet with rolling walker.
�
Tobacco:�Smoking since a teenager, currently 10 cigarettes a day
Alcohol:�Denies�
Drug use:�Denies�
�
Lives with:� and stepdaughter
24-hour assistance available:�Yes
Number of floors: 2
# steps to enter:�4
# steps to second floor: Full flight
Potential First floor set up:�Yes
Driving:�Yes
Occupation:�Retired
�
�
Allergies:�
Allergy/AdvReac Type Severity Reaction Status Date / Time
No Known Allergies Allergy Verified 06/17/25 07:21
�
Review of Systems:�
Constitutional: (x) abNormal _fatigue
Eye: (x) Normal _
Ear/Nose/Throat: (x) Normal _
Respiratory: (x) Normal _
Cardiovascular: (x) Normal _
Gastrointestinal: (x) Normal _had a small bowel movement yesterday
Genitourinary: (x) Normal _urinating without concern
Musculoskeletal: (x) abNormal _difficulty with walking. Currently with right leg pain limiting motion.
Integumentary: (x) Normal _
Neurologic: (x) abNormal _decreased sensation in the left leg, right leg feeling back to normal.
Psychiatric: (x) Normal _
Endocrine: (x) Normal _
Hematologic/Lymphatic: (x) Normal _
Allergic/Immunologic: (x) Normal _
�
Medications:�
Active Current Visit Medication List
Category Date Time Status
Acetaminophen [Tylenol] Med 06/17/25 11:33 Active
650 mg PO Q4HPRN PRN
Aspirin Low Dose EC [Aspir Low (Enteric Coated)] Med 06/17/25 12:00 Active
81 mg PO DAILY
Atorvastatin [Lipitor] Med 06/18/25 08:00 Active
80 mg PO DAILY
Bisacodyl [Dulcolax] Med 06/17/25 11:33 Active
10 mg RECTAL DAILYPRN PRN
Cholecalciferol (Vitamin D3) [VITAMIN D3 ( Med 06/18/25 08:00 Active
cholecalciferol)]
25 mcg PO DAILY
Clopidogrel Bisulfate [Plavix] Med 06/18/25 08:00 Active
75 mg PO DAILY
Flush (0.9% Sodium Chloride) [Flush (Nss)] Med 06/17/25 19:00 Active
See Dose Instructions IV PER PROTOCOL
HYDROmorphone [Dilaudid] Med 06/17/25 11:33 Active
0.5 mg IV Q4HPRN PRN
Heparin Med 06/17/25 16:00 Active
5,000 units SC Q8
Hydrochlorothiazide [Oretic] Med 06/18/25 08:00 Active
12.5 mg PO DAILY
Losartan [Cozaar] Med 06/18/25 08:00 Active
50 mg PO DAILY
Metoprolol Xl [Toprol Xl] Med 06/18/25 08:00 Active
25 mg PO DAILY
Multivitamin [Theragran] Med 06/18/25 08:00 Active
1 tablet PO DAILY
Oxycodone [Roxicodone] Med 06/17/25 11:33 Active
5 mg PO Q4HPRN PRN
Pantoprazole [Protonix] Med 06/18/25 08:00 Active
40 mg PO DAILY
�
Vitals:�
Temp Pulse Resp BP Pulse Ox
98.7 F 84 16 102/91 93
06/22/25 11:10 06/22/25 11:10 06/22/25 11:10 06/22/25 11:10 06/22/25 11:10
Height 5 ft 6 in
Actual Weight 87 kg
Body Mass Index (BMI) 31.0
�
Physical Exam:�
General Appearance/Observation: Well-developed, well-nourished male in no apparent distress.�
Pain/Comfort Assessment: Moderate to severe pain right leg
Mood/Affect: Appropriate�
�
Integumentary/Operative Site:�Right leg with multiple surgical incisions in the thigh with enid clean dry and intact. Right groin katelin dressing
�� Pressure Ulcer Evaluation: absent over heels.�
�Eyes: Conjunctiva/Lids: normal��� Pupils: pupils equal round and reactive to light and Accommodation
Ears/Nose/Throat: oral mucosa moist, throat clear.������������ Lips/Teeth/Gums: Edentulous
Neck: No muscle spasm or tenderness�
Cardiovascular: Heart: regular, no murmur�
Pulses: dorsalis pedis 2+ bilaterally�
Respiratory: Respiratory Effort/Chest Expansion: normal������ Auscultation: Clear to auscultation bilaterally
Gastrointestinal: abdomen not tender, no distension, normal abdominal bowel sounds
Genitourinary: No Hernández�
Extremities:�Edema: None�Cyanosis: None�Trophic�changes: None
�
Neurology Exam:
Orientation: Alert, Oriented to self, Time, Place�
Memory: Intact for recent medical concerns
Comprehension: Intact
Two step command: Intact
Cranial Nerves:
�� CNII:�Pupillary light reflex: Intact���
�� CN III, IV, : Extraocular muscles: Intact�
�� CN V:�Facial Sensation�at�Forehead: Intact,�Maxilla: Intact,�Mandible: Intact
�� CN VII:�Facial movement: Symmetric
�� CN VIII:�Hearing: Normal
�� CN IX/X:�Speech & swallow: Normal,�Position of Uvula: Midline
�� CN XI:�Shoulder shrug: Symmetric
�� CN XII:�Tongue protrusion: Midline
Sensory:
�� Light touch: Intact in bilateral upper and lower extremities, except for decreased left toes, distal foot
�
Reflexes:
�� Biceps: 2+ bilaterally
�� Brachioradialis: 2+ bilaterally
�� Triceps: 2+ bilaterally
�� Patellar: 0 bilaterally
�� Achilles: 0 bilaterally
�� Babinski: Down going bilaterally
�� Clonus: None
�� Sonya: Negative bilaterally�
Cerebellar: Dysmetria/Ataxia: None�
Musculoskeletal: Motor: (Manual muscle scale 0-5)�
Muscle SA EF WE EE FF FA HF KE DF EHL PF
Right� 5 5 5 5 5 4 1* 2* 5 5 5
Left 5 5 5 5 5 4 2 5 5 5 5
�*pain limiting
Tone: Normal in all extremities�
Range of Motion: Passively within functional limits in all extremities�except for right hip limited secondary to pain
�
Lab Results
Laboratory Data
06/21/25 09:07
06/22/25 05:31
PT 15.6 Sec (11.4-14.6) H 06/18/25 04:39
INR 1.19 06/18/25 04:39
APTT 29.9 Sec (23.4-35.0) 06/18/25 04:39
�
Diagnostic Results:�as per HPI�
�
Assessment
74 y/o R handed M PMH (PAD, CKD stage II, mixed hyperlipidemia, nicotine dependence, peripheral vascular disease, aortic aneurysm, CAD, ST elevation myocardial infarction, carotid stenosis) s/p 06/17/2025 elective right femoral to [id number]
popliteal artery bypass with ipsilateral nonreversed greater saphenous vein conduit by Dr. Natalio Wright for claudication and nonhealing ulcer with persistent ADL and ambulatory dysfunction.
�
Plan�
PM&R�PT/OT to increase independence with ADLs, improve balance, coordination, endurance, strength, mobility, community reintegration, decreased burden of care on others and family education.�
�
PAD s/p right fem-pop bypass: Aspirin/Plavix monitor incision, pain control. Currently neurovascularly intact, continue to monitor.
�
HTN: Metoprolol, hydrochlorothiazide 12.5 mg daily, losartan 50 mg daily, monitor closely�
HLD: Statin�
Coronary artery disease: Aspirin, statin, beta-nina�
Postoperative anemia: Normal preoperatively, down to 10.9 from 11.1 from 10.9, monitor.� The
Skin: monitor for pressure sores/rashes/lesions.�
Pain: acetaminophen or oxycodone as needed.�
Bowel: Colace and Senna, PRN bisacodyl.�
Bladder: Voiding without difficulty
Tobacco Abuse: Smoking cessation counseling. Need to find out why smoking whether it is nicotine withdrawal, habit, or oral fixation.�
GI Prophylaxis: Pantoprazole�
DVT Prophylaxis: Mechanical. Currently on aspirin and Plavix, consider heparin
Pulmonary: Incentive spirometry�
Obesity: Continue to elder counselor patient about diet adjustments to control obesity. Body habitus and increased force to move body and extremities causes further difficulty with functional tasks.�
Safety: Continue to reinforce assistance with all transfers.�
Code Status:� Full code
Dispo�(date/plan/equipment needs): Home with family care.� Social history reviewed.�
Functional and Medical Goals:�Modified Independent with ADL�s, ambulation, transfers�
Discharge Destination:�Acute inpatient rehabilitation. Continue to monitor cardiovascular status. Has decreased sensation in the left foot from PAD making him at higher risk of falls. Will need consistent pain management, monitoring of anemia and
monitoring of neurovascular status.
�
Thank you for allowing me to care for your patient. Please contact me with any questions or concerns.
Consultation
-
Date/Time Consultation Performed: 06/22/25
Requesting Provider: Dr. Natalio Wright
Performing Provider: Dr. Crescencio Barriga
Reason for Consultation: Debility after vascular procedure
[2025-06-22 15:05] VITALS: BP 102/65
--- NOTE | 2025-06-22 16:08 | CM ---
[employer] auth for acute rehab initiated with Jey from [facility] at .
Pended reference # [id number]
clinicals faxed to [phone]
[2025-06-22 19:10] VITALS: BP 101/65
[2025-06-22 23:10] VITALS: BP 107/58
[2025-06-23] VITALS (9 sets, daily range): BP systolic 76–122; BP diastolic 49–81; PULSE 80; O2SAT 93–94
[2025-06-23] MEDS: ROXICODONE 5 MG PO (00:52)
[2025-06-23] MEDS: LIPITOR 80 MG PO (08:10)
[2025-06-23] MEDS: COZAAR 50 MG PO (08:10)
[2025-06-23] MEDS: PLAVIX 75 MG PO (08:10)
[2025-06-23] MEDS: ASPIR LOW (ENTERIC COATED) 81 MG PO (08:10)
[2025-06-23] MEDS: VITAMIN D3 (cholecalciferol) 25 MCG PO (08:10)
[2025-06-23] MEDS: TOPROL XL 25 MG PO (08:10)
[2025-06-23] MEDS: THERAGRAN 1 TABLET PO (08:10)
[2025-06-23] MEDS: ORETIC 12.5 MG PO (08:11)
[2025-06-23] MEDS: PROTONIX 40 MG PO (08:11)
[2025-06-23] MEDS: HEPARIN 5000 UNITS SC ×2 (08:11→17:10)
--- NOTE | 2025-06-23 08:44 | W.PN.VS ---
Addendum entered and electronically signed by Paola Panchal MD, Resident 06/24/25 08:59:
Pt Hgb & Hct trends below:
06/14/25 06/17/25 06/18/25
10:02 11:58 04:39
Hgb 13.8 11.8 L 10.8 L
Hct 42.8 35.0 L 33.1 L
06/20/25 06/21/25
04:16 09:07
Hgb 11.1 L 10.9 L
Hct 33.8 L 33.2 L
Given procedure on 06/17, Hgb trending in 10-11 range (from 13 prior to OR) is c/w expected post-op anemia 2/2 minor blood loss during the procedure & post-op inflammatory response. Expected to normalize over coming week.
Original Note:
Documented by User: Paola Panchal MD, Resident 06/23/25 09:02
Today's Communication / Plan
-
Plan:
Continue DAPT of Plavix 75 mg p.o. daily and aspirin 81 mg p.o. daily
OOB to chair, with progression to ambulation as tolerated
Continue to encourage incentive spirometry
Patient is cleared for discharge awaiting rehab placement
Assessment/Plan
-
74-year-old male POD #5 Right femoral to above-knee popliteal artery bypass with ipsilateral nonreversed greater saphenous vein conduit, awaiting discharge.
Assessment: AVSS. Pt recovering well post-op, mild serous drainage from incision site as expected. No subjective or objective fevers overnight, no change in pain, no erythema surrounding incision sites. Area of erythematous skin with
breakage/blistering likely 2/2 irritation from dressing tape. Swelling to RLE improved from prior. Awaiting rehab placement for discharge.
Plan:
Continue DAPT of Plavix 75 mg p.o. daily and aspirin 81 mg p.o. daily
OOB to chair, with progression to ambulation as tolerated
Continue to encourage incentive spirometry
Patient is cleared for discharge awaiting rehab placement
-
Total Time Spent with Patient (in minutes): 15
Subjective Data
-
Date of Service: June 23, 2025
Patient doing well, awake in bed & conversant. Denies any increase in pain in RLE/groin since yesterday. Denies any f/c overnight. Curious about dispo planning updates.
Objective Data
-
Vital Signs
Temp Pulse Resp BP Pulse Ox
98.5 F 68 20 114/59 95
06/23/25 07:29 06/23/25 07:29 06/23/25 07:29 06/23/25 07:29 06/23/25 07:29
Intake and Output
06/22/25 06/23/25 06/24/25
06:59 06:59 06:59
Intake Total 240 / 240 1200 / 1200
Output Total 350 / 350 1425 / 1425
Balance -110 / -110 -225 / -225
Intake:
Oral fluids 240 / 240 1200 / 1200
Output:
Urine, Voided 350 / 350 1425 / 1425
Other:
Number of approximated SMALL 1 1
amounts of urine
Number of approximated MODERATE 1 2
amounts of urine
How many times incontinent 1
SATURATED amount urine
Lab Results
06/21/25 09:07
06/22/25 05:31
Calcium 8.3 mg/dl (8.4-10.2) L 06/22/25 05:31
Phosphorus 3.8 mg/dl (2.5-4.5) 06/17/25 11:58
Magnesium 2.0 mg/dl (1.6-2.3) 06/19/25 04:59
Physical Exam
-
General: No apparent distress, resting in bed comfortably
Pulm: Non-labored respirations
Abdomen: Non-distended
Vascular/MSK: RLE incision sites intact, enid well approximated, with gauze taped over; serous drainage soaking gauze from incision site on medial thigh; area of linear erythema & skin breakdown with serous drainage above gauze at site of prior
taping; trace edema RLE; all compartments soft, no evidence of hematoma

Documented by User: KENDALL Kaiser 06/23/25 09:40
Today's Communication / Plan
-
Plan:
Continue DAPT of Plavix 75 mg p.o. daily and aspirin 81 mg p.o. daily
OOB to chair, with progression to ambulation as tolerated
Continue to encourage incentive spirometry
Patient is cleared for discharge awaiting rehab placement
Update:
Given continued serosanguineous drainage from upper saphenectomy site will discontinue discharge order and observe additional day, will provide one time dose of lasix for swelling and initiate antibiotic as slight erythema present around upper area
of saphenectomy site towards groin
[2025-06-23 09:47] LABS: Blood Urea Nitrogen 35 mg/dl (9-20); Calcium 8.8 mg/dl (8.4-10.2); Carbon Dioxide 23 mmol/L (22-30); Chloride 106 mmol/L (98-107); Estimated Creatinine Clearance 52 ml/min; Glucose 112 mg/dl (70-99); Potassium 4.4 mmol/L (3.5-5.1); Sodium 137 mmol/L (135-145); eGFR 58.01
[2025-06-23] MEDS: LASIX 40 MG PO (10:46)
[2025-06-23] MEDS: KLOR-CON 20 MEQ PO (10:46)
[2025-06-23] MEDS: DULCOLAX 10 MG RECTAL (14:24)
--- NOTE | 2025-06-23 14:27 | PN.CDI ---
CDI
- -
CDI:
Physician Documentation Request
Admit Date: 06/17/25 06:15
Dear Doctor Ansley,
Patient is s/p Right femoral to above-knee popliteal artery bypass with ipsilateral nonreversed greater saphenous vein conduit.
Rehab consult includes 'Postoperative anemia'
H/H results including preop:
06/14/25 06/17/25 06/18/25
10:02 11:58 04:39
Hgb 13.8 11.8 L 10.8 L
Hct 42.8 35.0 L 33.1 L
06/20/25 06/21/25
04:16 09:07
Hgb 11.1 L 10.9 L
Hct 33.8 L 33.2 L
Could you please provide a diagnosis that supports the above lab abnormalities and additional evaluation/ monitoring:
Acute blood loss anemia
Anemia - please specify
Other
Use of terms such as suspected, likely, concern for, or probable (associated with a specific diagnosis that is being evaluated, monitored, or treated as if it exists) are acceptable and can be coded in the inpatient setting, when documented at the
time of discharge.
Thank you,
Kassandra Hammonds RN, BSN
CDI Specialist
tiger text
Please use your independent medical judgment in providing your response.
--- NOTE | 2025-06-23 16:03 | CM ---
TC to [facility] to check on authorization for acute rehab.
Per professional healthcare representative clinicals received yesterday and case is assigned to a skilled laborer for review.
Case pending.
--- NOTE | 2025-06-23 17:17 | CM ---
Patient who is s/p Right femoral to above-knee popliteal artery bypass. Room air. Receiving PO Abx, Roxicodone prn. PT recommends [facility] vs SNF, OT recommends [facility]. Physiatry Consult recommends [facility].
Spoke with [facility] Liaison; provided update insurance auth still pending. They will have an available bed once insurance approves.
Spoke with patient; he was hoping he could go to [facility] - informed patient that [facility] had declined. He is agreeable to [facility]. Provided update insurance auth is still pending.
Plan [facility] once insurance approves.
[2025-06-23] MEDS: COLACE 100 MG PO (19:32)
[2025-06-23] MEDS: KEFLEX 500 MG PO (19:32)
[2025-06-24] MEDS: HEPARIN 5000 UNITS SC ×3 (00:03→16:39)
[2025-06-24 03:00] VITALS: BP 101/56
[2025-06-24 07:45] VITALS: BP 105/55
[2025-06-24] MEDS: COLACE 100 MG PO ×2 (08:29→19:54)
[2025-06-24] MEDS: VITAMIN D3 (cholecalciferol) 25 MCG PO (08:29)
[2025-06-24] MEDS: PLAVIX 75 MG PO (08:29)
[2025-06-24] MEDS: TOPROL XL 25 MG PO (08:29)
[2025-06-24] MEDS: KEFLEX 500 MG PO ×2 (08:29→19:54)
[2025-06-24] MEDS: ASPIR LOW (ENTERIC COATED) 81 MG PO (08:29)
[2025-06-24] MEDS: LIPITOR 80 MG PO (08:29)
[2025-06-24] MEDS: PROTONIX 40 MG PO (08:29)
[2025-06-24] MEDS: THERAGRAN 1 TABLET PO (08:30)
[2025-06-24] MEDS: COZAAR 50 MG PO (08:30)
[2025-06-24] MEDS: ORETIC 12.5 MG PO (08:30)
--- NOTE | 2025-06-24 09:35 | W.PN.VS ---
Today's Communication / Plan
-
Discussed with Dr. Hernández
Assessment/Plan
-
74-year-old male POD #6 Right femoral to above-knee popliteal artery bypass with ipsilateral nonreversed greater saphenous vein conduit, awaiting discharge.
Plan:
Continue DAPT of Plavix 75 mg p.o. daily and aspirin 81 mg p.o. daily
OOB to chair, ambulation as tolerated
Continue to encourage incentive spirometry
Awaiting rehab placement
Subjective Data
-
Date of Service: June 24, 2025
Patient seen at bedside this a.m. No events overnight. Complains of gas pain this morning. Leg dressing remains dry.
Objective Data
-
Vital Signs
Temp Pulse Resp BP Pulse Ox
98.6 F 70 16 105/55 95
06/24/25 07:45 06/24/25 08:29 06/24/25 07:45 06/24/25 08:29 06/24/25 07:45
Intake and Output
06/23/25 06/24/25 06/25/25
06:59 06:59 06:59
Intake Total 1200 / 1200 1140 / 1140
Output Total 1425 / 1425 150 / 150
Balance -225 / -225 990 / 990
Intake:
Oral fluids 1200 / 1200 1140 / 1140
Output:
Urine, Voided 1425 / 1425 150 / 150
Other:
Number of approximated SMALL 1 1
amounts of urine
Number of approximated MODERATE 2 3
amounts of urine
How many times incontinent 1
SATURATED amount urine
Calcium 8.8 mg/dl (8.4-10.2) 06/23/25 09:11
Phosphorus 3.8 mg/dl (2.5-4.5) 06/17/25 11:58
Magnesium 2.0 mg/dl (1.6-2.3) 06/19/25 04:59
Physical Exam
-
No apparent distress, resting in chair comfortably
No dyspnea on room air
No tachycardia
Abdomen: Non-distended
RLE incision sites intact, enid well approximated, no drainage noted this morning, katelin dressing at right groin dry
Trace edema RLE; all compartments soft, no evidence of hematoma
[2025-06-24 12:13] LABS: Blood Urea Nitrogen 48 mg/dl (9-20); Calcium 9.4 mg/dl (8.4-10.2); Carbon Dioxide 28 mmol/L (22-30); Chloride 104 mmol/L (98-107); Estimated Creatinine Clearance 43 ml/min; Glucose 101 mg/dl (70-99); Potassium 4.1 mmol/L (3.5-5.1); Sodium 140 mmol/L (135-145); eGFR 45.21
[2025-06-24 12:25] LABS: Hematocrit 34.2 % (39.0-52.0); Hemoglobin 11.2 g/dL (13.0-18.0); Mean Corp Hgb Conc. 32.7 g/dL (33.0-37.0); Mean Corpuscular Volume 95.8 fL (80.0-94.0); Platelet Count 305 10^3/uL (130-400); Red Cell Dist. Width 14.4 % (11.5-14.5)
[2025-06-24] MEDS: ROXICODONE 5 MG PO (12:27)
--- NOTE | 2025-06-24 13:52 | CM ---
Addendum entered by Jena Fajardo 06/24/25 14:18:
Acute rehab was denied. skilled would be approved if requested within 48 hours. Reference# [id number]
Appeals number [phone] Montes by 06/[address] López notified for appeal-peer to peer.
Original Note:
Awaiting [employer] insurance for [facility]. [employer] nurse reviewer was assigned.
--- NOTE | 2025-06-24 14:19 | CM ---
TC from [facility] re determination on Acute Rehab
reference # [id number]
MDR denied acute rehab, reason: care could be in a lower level of care. Skilled rehab would be approved if called within 48 hours.
Peer to Peer # [phone], option 2, Dr Montes
peer to peer would need to be completed by 06/25/25 12 pm.
Jonathan updated, MARGARET updated.
[2025-06-24 15:05] VITALS: BP 90/47
[2025-06-24] MEDS: DULCOLAX 10 MG RECTAL (15:25)
[2025-06-24] MEDS: TYLENOL 650 MG PO (16:37)
[2025-06-24 19:00] VITALS: BP 117/41
[2025-06-24] MEDS: DULCOLAX 10 MG PO (19:54)
[2025-06-24 23:00] VITALS: BP 96/52
[2025-06-24 23:36] VITALS: BP 124/65
[2025-06-25] MEDS: HEPARIN 5000 UNITS SC ×3 (00:25→16:42)
[2025-06-25 07:05] VITALS: BP 101/60
--- NOTE | 2025-06-25 08:12 | W.PN.VS ---
Addendum entered and electronically signed by Wu Hernández III, MD 06/25/25 17:33:
This patient was seen and examined in collaboration with Dr. Panchal. I agree with the history and physical exam as well as the assessment and plan. I have the following additions:
Doing well overall
Incision is now clean and dry
Erythema significantly improved on antibiotics
Edema less
Plan to complete course of oral antibiotics
Rehab placement
Signed:
Wu Hernández III, MD
Vascular Surgery
[facility]
Original Note:
Today's Communication / Plan
-
Plan:
Continue DAPT of Plavix 75 mg p.o. daily and aspirin 81 mg p.o. daily
Continue keflex (day 3 of >=5)
Repeat labs to monitor Cr level
Encourage hydration
OOB to chair, ambulation as tolerated
Continue to encourage incentive spirometry
Awaiting rehab placement
Assessment/Plan
-
74-year-old male POD #7 Right femoral to above-knee popliteal artery bypass with ipsilateral nonreversed greater saphenous vein conduit, awaiting discharge.
Assessment: Swelling, erythema in RLE/groin improving s/p keflex course and dose of lasix; incision sites clean & dry. WBC slightly elevated 12.8, will continue keflex for suspected mild cellulitis. VSS, no fevers. Will monitor slight Cr bump
(1.3>1.6) with labs today, likely 2/2 lasix dose (40mg on 06/23) and will come down. Continues to await rehab placement.
Plan:
Continue DAPT of Plavix 75 mg p.o. daily and aspirin 81 mg p.o. daily
Continue keflex (day 3 of >=5)
Repeat labs to monitor Cr level
Encourage hydration
OOB to chair, ambulation as tolerated
Continue to encourage incentive spirometry
Awaiting rehab placement
-
Total Time Spent with Patient (in minutes): 10
Subjective Data
-
Date of Service: June 25, 2025
Pt awake in bed, no new complaints this am. No f/c overnight.
Objective Data
-
Vital Signs
Temp Pulse Resp BP Pulse Ox
98.2 F 84 16 101/60 95
06/25/25 07:05 06/25/25 07:05 06/25/25 07:05 06/25/25 07:05 06/25/25 07:05
Intake and Output
06/24/25 06/25/25 06/26/25
06:59 06:59 06:59
Intake Total 1140 / 1140 600 / 600
Output Total 150 / 150 325 / 325
Balance 990 / 990 600 / 600 -325 / -325
Intake:
Oral fluids 1140 / 1140 600 / 600
Output:
Urine, Voided 150 / 150 325 / 325
Other:
Number of approximated SMALL 1 1
amounts of urine
Number of approximated MODERATE 3
amounts of urine
Number of unmeasured liquid
stools
Rectum 1
Lab Results
06/24/25 11:46
Calcium 9.4 mg/dl (8.4-10.2) 06/24/25 11:46
Phosphorus 3.8 mg/dl (2.5-4.5) 06/17/25 11:58
Magnesium 2.0 mg/dl (1.6-2.3) 06/19/25 04:59
Physical Exam
-
General: No apparent distress, lying in bed
Pulm: Non-labored respirations
Abd: Non-distended
MSK/Vascular: RLE incision sites intact, enid well approximated without drainage/erythema/purulence; R groin with abd pad dressings, changed at bedside; erythema in groin much improved; skin abrasion on thigh at tape site; all compartments soft,
no evidence of hematoma
[2025-06-25 08:21] LABS: Blood Urea Nitrogen 49 mg/dl (9-20); Calcium 9.4 mg/dl (8.4-10.2); Carbon Dioxide 29 mmol/L (22-30); Chloride 104 mmol/L (98-107); Estimated Creatinine Clearance 49 ml/min; Glucose 118 mg/dl (70-99); Potassium 4.6 mmol/L (3.5-5.1); Sodium 138 mmol/L (135-145); eGFR 53.07
[2025-06-25] MEDS: ASPIR LOW (ENTERIC COATED) 81 MG PO (08:34)
[2025-06-25] MEDS: LIPITOR 80 MG PO (08:34)
[2025-06-25] MEDS: COZAAR 50 MG PO (08:35)
[2025-06-25] MEDS: COLACE PO ×2 (08:35→21:19)
[2025-06-25] MEDS: PLAVIX 75 MG PO (08:35)
[2025-06-25] MEDS: KEFLEX 500 MG PO ×2 (08:39→20:05)
[2025-06-25] MEDS: ORETIC 12.5 MG PO (08:42)
[2025-06-25] MEDS: VITAMIN D3 (cholecalciferol) 25 MCG PO (08:42)
[2025-06-25] MEDS: THERAGRAN 1 TABLET PO (08:42)
[2025-06-25] MEDS: TOPROL XL 25 MG PO (08:42)
[2025-06-25] MEDS: PROTONIX 40 MG PO (08:42)
[2025-06-25] MEDS: TYLENOL 650 MG PO (11:02)
--- NOTE | 2025-06-25 11:09 | CM ---
Addendum entered by Genesis Tyalor 06/25/25 14:21:
notified of Auth approval and discharge tomorrow
Addendum entered by Genesis Taylor 06/25/25 14:17:
Facility notified of Auth approval; can accept patient tomorrow @ 1400
Addendum entered by Genesis Taylor 06/25/25 14:06:
Plan: Discharge to [facility] tomorrow via Ambulance
Report# [phone]

Addendum entered by Genesis Taylor 06/25/25 14:05:
Certification Number
[id number]
Status
CERTIFIED IN TOTAL
Service Type Code 1
[facility] - [facility]
Start Date - End Date
2025-06-26 - 2025-07-02
Addendum entered by Genesis Taylor 06/25/25 12:29:
Spoke with patient's , Ally via phone # [phone]; she is agreeable with 's discharge to [facility]
Spoke with Car[facility] via phone # [phone], [facility] can accept patient tomorrow pending authorization approval
[facility] NPI # [id number]
Provider, Jolie Holden; NPI # [id number]
Plan: Discharge to [facility] tomorrow via ambulance pending AUTH approval
Original Note:
[address].....peer to peer determination: Approved only for SNF (10:26 AM)
Trina López said Family can appeal if they want. It goes to a different director
Vascular team notified
Disassembler Product will speak with patient/spouse and inform them of authorization outcome; will send referrals to SNFs within 10 mile radius of patient's home address via [facility]
[2025-06-25 12:20] VITALS: BP 83/54; BP 96/47; PULSE 81
[2025-06-25] MEDS: ROXICODONE 5 MG PO ×2 (13:17→21:56)
[2025-06-25 15:19] VITALS: BP 84/50
[2025-06-25 17:16] VITALS: BP 93/51
[2025-06-25 23:18] VITALS: BP 90/49
[2025-06-26] MEDS: HEPARIN 5000 UNITS SC ×2 (00:33→09:27)
[2025-06-26 07:20] VITALS: BP 92/55
--- NOTE | 2025-06-26 07:50 | W.PN.VS ---
Today's Communication / Plan
-
as above
Assessment/Plan
-
74-year-old male POD #8 Right femoral to above-knee popliteal artery bypass with ipsilateral nonreversed greater saphenous vein conduit, awaiting discharge.
Assessment: Swelling, erythema in RLE/groin improving s/p keflex course and dose of lasix; incision sites clean & dry.
Plan:
Continue DAPT of Plavix 75 mg p.o. daily and aspirin 81 mg p.o. daily
Continue keflex (day 4 of >=5)
Cr level ok
Encourage hydration
OOB to chair, ambulation as tolerated
Continue to encourage incentive spirometry
d/c to rehab today
Subjective Data
-
Date of Service: June 26, 2025
No acute events. Has no complaints today.
Objective Data
-
Vital Signs
Temp Pulse Resp BP Pulse Ox
98.2 F 82 17 90/49 100
06/25/25 23:18 06/25/25 23:18 06/25/25 23:18 06/25/25 23:18 06/25/25 23:18
Intake and Output
06/25/25 06/26/25 06/27/25
06:59 06:59 06:59
Intake Total 600 / 600 720 / 720
Output Total 925 / 925 300 / 300
Balance 600 / 600 -205 / -205 -300 / -300
Intake:
Oral fluids 600 / 600 720 / 720
Output:
Urine, Voided 925 / 925 300 / 300
Other:
Number of approximated SMALL 1
amounts of urine
Number of unmeasured liquid
stools
Rectum 1 1
Lab Results
06/24/25 11:46
Calcium 9.4 mg/dl (8.4-10.2) 06/25/25 07:54
Phosphorus 3.8 mg/dl (2.5-4.5) 06/17/25 11:58
Magnesium 2.0 mg/dl (1.6-2.3) 06/19/25 04:59
Physical Exam
-
NAD
Incisions c/d/i
No erythema
[2025-06-26] MEDS: ASPIR LOW (ENTERIC COATED) 81 MG PO (09:26)
[2025-06-26] MEDS: ORETIC 12.5 MG PO (09:26)
[2025-06-26] MEDS: TOPROL XL 25 MG PO (09:26)
[2025-06-26] MEDS: COLACE 100 MG PO (09:26)
[2025-06-26] MEDS: LIPITOR 80 MG PO (09:26)
[2025-06-26] MEDS: KEFLEX 500 MG PO (09:27)
[2025-06-26] MEDS: PLAVIX 75 MG PO (09:27)
[2025-06-26] MEDS: COZAAR 50 MG PO (09:27)
[2025-06-26] MEDS: VITAMIN D3 (cholecalciferol) 25 MCG PO (09:27)
[2025-06-26] MEDS: PROTONIX 40 MG PO (09:27)
[2025-06-26] MEDS: THERAGRAN 1 TABLET PO (09:27)
--- NOTE | 2025-06-26 09:37 | CM ---
MARGARET notified that auth has been obtained and pt will need transport to [facility].
MARGARET spoke with RN Instrument Designer at [facility], who confirmed can accept pt today.
Transport requested for 2:30 pm.
MARGARET spoke with both pt and spouse who are all in agreement of dc plan.
[2025-06-26 11:09] LABS: Blood Urea Nitrogen 46 mg/dl (9-20); Calcium 9.4 mg/dl (8.4-10.2); Carbon Dioxide 29 mmol/L (22-30); Chloride 105 mmol/L (98-107); Estimated Creatinine Clearance 43 ml/min; Glucose 91 mg/dl (70-99); Potassium 4.2 mmol/L (3.5-5.1); Sodium 138 mmol/L (135-145); eGFR 45.21
[2025-06-26 14:41] VITALS: BP 90/50
[2025-06-26 14:55] VITALS: BP 98/62
== END 2025-06-26 15:15 | DRG 253 ==
LOC: 2 SOUTH 06:15
PROVIDERS: Nurse Practitioner; Nurse Practitioner Acute Care; Nurse Practitioner Primary Care; ADMITTING PHYSICIAN Surgery Vascular Surgery; CONSULT PHYSICIAN Internal Medicine; CONSULT PHYSICIAN Physical Medicine & Rehabilitation; PRIMARYCARE PHYSICIAN Internal Medicine
PROC: 041K09L Bypass Right Femoral Artery to Popliteal Artery with Autologous Venous Tissue, Open Approach (ICD-10-PCS; 2025-06-17)
PROC: 06BQ0ZZ Excision of Left Saphenous Vein, Open Approach (ICD-10-PCS; 2025-06-17)
DX: I70.221 Atherosclerosis of native arteries of extremities with rest pain, right leg (principal); D62 Acute posthemorrhagic anemia; I25.10 Atherosclerotic heart disease of native coronary artery without angina pectoris; E78.2 Mixed hyperlipidemia; N18.2 Chronic kidney disease, stage 2 (mild); I71.40 Abdominal aortic aneurysm, without rupture, unspecified; F17.210 Nicotine dependence, cigarettes, uncomplicated; J43.9 Emphysema, unspecified; R91.1 Solitary pulmonary nodule; I12.9 Hypertensive chronic kidney disease with stage 1 through stage 4 chronic kidney disease, or unspecified chronic kidney disease; I25.2 Old myocardial infarction; Z79.02 Long term (current) use of antithrombotics/antiplatelets; Z95.5 Presence of coronary angioplasty implant and graft
CPT/HCPCS: 35556; 36415; 71045; 71046; 80048; 82962; 83735; 84100; 85025; 85027; 85610; 85730; 86850; 86900; 86901; 93005; 97116; 97163; 97167; 97530; 97535; 99406

== ENCOUNTER 2025-07-11 06:16 | Inpatient (IN) | payer MEDICARE, SELFPAY ==
[2025-07-10 21:07] VITALS: BP 108/56
--- NOTE | 2025-07-10 21:57 | ED.GENMED ---
History of Present Illness
<Thalia Lopez MD, Resident - Last Filed: 07/11/25 00:54>
General
Chief Complaint: Post Operative Problem(s)
Source: patient and family
Time Seen by Provider: 07/10/25 21:50
Nursing documentation reviewed up to this point in time: agreed with
History of Present Illness
History of Present Illness:
74-year-old male past medical history of hypertension, DC, CKD stage II, and recent vascular surgery (femoral-popliteal bypass surgery on his right upper thigh on 06/17) comes to the emergency department due to right upper thigh swelling and redness
around incision sites of his surgery. He states that the pain began this morning and the area is swollen and erythematous. He says that the pain is sharp and sticks in that one area but sometimes can go up to his groin area too. He says he has
had no shortness of breath, difficulty breathing or chest pain. He does not have any fever or chills or any headaches. He took the oxycodone at 6 PM before coming to the hospital which relieved the pain a little bit. He had just finished rehab
for his surgery on Saturday, and returned home.
Past History
<Thalia Lopez MD, Resident - Last Filed: 07/11/25 00:54>
Past History
ED Past Medical History: CAD, Hypercholesterolemia, DC, Renal failure (CKD stage II) and Other (Abdominal artery aneurysm)
ED Past Surgical History: Cardiac and Other (Femoral-popliteal bypass 06/17)
Patient has exhibited threatening behavior?: No
Social History
Tobacco: Smoker
Review of Systems
<Thalia Lopez MD, Resident - Last Filed: 07/11/25 00:54>
Review of Systems
Allergies reviewed?: Yes
Other source history: family
All Other Systems: ROS reviewed and negative except as documented in HPI and ROS
Phy Exam
<Thalia Lopez MD, Resident - Last Filed: 07/11/25 00:54>
General Physical Exam
General Presentation: mild distress
General Skin: warm and dry
General Habitus: normal
General Mental: alert
General Hydration: appears well hydrated
Cardiovascular Exam
Cardiovascular Exam: regular rate/rhythm, no edema and no murmur
Pulmonary Exam
Pulmonary Exam: lungs clear, no respiratory distress, no crackles and no wheezing
Gastrointestinal Exam
Gastrointestinal Exam: normal bowel sounds, non tender, soft and non distended
Skin Exam
Skin Exam: redness (Along incision site on right thigh), tenderness (Along incision site on right thigh) and warmth (Along incision site on right thigh)
Sepsis
<Thalia Lopez MD, Resident - Last Filed: 07/11/25 00:54>
Sepsis Screening
Sepsis Assessment: Sepsis Ruled Out
Sepsis Screen
Sepsis Screen: Sepsis Ruled Out
Date: 07/11/25
Time: 00:53
<Dennis Patel, DO - Last Filed: 07/11/25 01:09>
Sepsis Screen
Sepsis Screen: Sepsis Ruled Out
Date: 07/11/25
Time: 01:09
Course
<Thalia Lopez MD, Resident - Last Filed: 07/11/25 00:54>
Orders/Labs/Results
Orders:
Orders
07/10/25 23:00
Complete Blood Count/With Diff Urgent
Comprehensive Metabolic Panel Urgent
Lactate Level [Lactic Acid] Urgent
07/10/25 23:15
HYDROmorphone [Dilaudid] 1 mg IV NOW STA
Ondansetron Injectable [Zofran] 4 mg IV NOW STA
07/11/25 00:01
CT Lower Ext Angio W/wo Iv Con Urgent
Reason For Exam: infection rigth thigh after vascular sx
07/11/25 01:08
CeFAZolin 2 grams IV Push NOW CeFAZolin 2 GRAM [Ancef] 2 grams in 10 ml IV NOW
NSS 1000mL Bolus WIDE OPEN 0.9% Sodium Chloride 1000 ml [Nss] 1,000 ml IV BOLUS
Abnormal Lab Results
07/10/25
23:00
WBC 14.6 H 10^3/uL
(4.8-10.8)
RBC 3.45 L 10^6/uL
(4.70-6.10)
Hgb 10.9 L g/dL
(13.0-18.0)
Hct 33.8 L %
(39.0-52.0)
MCV 98.0 H fL
(80.0-94.0)
MCH 31.6 H pg
(27.0-31.0)
MCHC 32.2 L g/dL
(33.0-37.0)
RDW 15.1 H %
(11.5-14.5)
MPV 10.7 H fL
(7.4-10.4)
Abs Immat Gran (auto) 0.1 H 10^3/uL
(0-0.05)
Absolute Neuts (auto) 10.7 H 10^3/uL
(1.4-6.5)
Absolute Monos (auto) 1.4 H 10^3/uL
(0.1-0.6)
Lymphocytes % 14.6 L %
(20.5-51.1)
Monocytes % 9.5 H %
(1.7-9.3)
BUN 29 H mg/dl
(9-20)
Creatinine 1.4 H mg/dL
(0.7-1.3)
Glucose 123 H mg/dl
(70-99)
07/10/25 23:00
07/10/25 23:00
Vital Signs
Initial and Last Documented VS:
Initial Vital Signs
Temp Pulse Resp BP Pulse Ox
97.9 F 76 24 108/56 98
07/10/25 21:07 07/10/25 21:07 07/10/25 21:07 07/10/25 21:07 07/10/25 21:07
Last Documented Vital Signs
Temp Pulse Resp BP Pulse Ox
97.9 F 73 11 118/62 98
07/10/25 21:07 07/11/25 00:30 07/11/25 00:30 07/11/25 00:19 07/11/25 00:30
<Dennis Patel, DO - Last Filed: 07/11/25 01:09>
Orders/Labs/Results
Orders:
Orders
07/10/25 23:00
Complete Blood Count/With Diff Urgent
Comprehensive Metabolic Panel Urgent
Lactate Level [Lactic Acid] Urgent
07/10/25 23:15
HYDROmorphone [Dilaudid] 1 mg IV NOW STA
Ondansetron Injectable [Zofran] 4 mg IV NOW STA
07/11/25 00:01
CT Lower Ext Angio W/wo Iv Con Urgent
Reason For Exam: infection rigth thigh after vascular sx
07/11/25 01:08
CeFAZolin 2 grams IV Push NOW CeFAZolin 2 GRAM [Ancef] 2 grams in 10 ml IV NOW
NSS 1000mL Bolus WIDE OPEN 0.9% Sodium Chloride 1000 ml [Nss] 1,000 ml IV BOLUS
Abnormal Lab Results
07/10/25
23:00
WBC 14.6 H 10^3/uL
(4.8-10.8)
RBC 3.45 L 10^6/uL
(4.70-6.10)
Hgb 10.9 L g/dL
(13.0-18.0)
Hct 33.8 L %
(39.0-52.0)
MCV 98.0 H fL
(80.0-94.0)
MCH 31.6 H pg
(27.0-31.0)
MCHC 32.2 L g/dL
(33.0-37.0)
RDW 15.1 H %
(11.5-14.5)
MPV 10.7 H fL
(7.4-10.4)
Abs Immat Gran (auto) 0.1 H 10^3/uL
(0-0.05)
Absolute Neuts (auto) 10.7 H 10^3/uL
(1.4-6.5)
Absolute Monos (auto) 1.4 H 10^3/uL
(0.1-0.6)
Lymphocytes % 14.6 L %
(20.5-51.1)
Monocytes % 9.5 H %
(1.7-9.3)
BUN 29 H mg/dl
(9-20)
Creatinine 1.4 H mg/dL
(0.7-1.3)
Glucose 123 H mg/dl
(70-99)
07/10/25 23:00
07/10/25 23:00
Vital Signs
Initial and Last Documented VS:
Initial Vital Signs
Temp Pulse Resp BP Pulse Ox
97.9 F 76 24 108/56 98
07/10/25 21:07 07/10/25 21:07 07/10/25 21:07 07/10/25 21:07 07/10/25 21:07
Last Documented Vital Signs
Temp Pulse Resp BP Pulse Ox
97.9 F 73 11 118/62 98
07/10/25 21:07 07/11/25 00:30 07/11/25 00:30 07/11/25 00:19 07/11/25 00:30
<Thalia Lopez MD, Resident - Last Filed: 07/11/25 00:54>
MDM/Problems Addressed
Differential Diagnosis Includes:
Cellulitis, vasculitis, DVT
MDM/Problems Addressed:
74-year-old male with past medical history of coronary artery disease, hyperlipidemia, recent femoral popliteal bypass surgery comes in due to right thigh erythema along the incision site from recent surgery.
Will get basic blood work, had difficult stick in triage, will get drawn up
Check for any acute blood loss, infectious process
No pulmonary symptoms, less likely PE due to no tachycardia, tachypnea, fever, hypoxia
No abscess palpated but skin seems inflamed, infected
No suspicion of sepsis at this time but will check Lactate
Patient continues to have pain, will give 1mg Dilaudid and Zofran for the nausea
CBC shows no sign of acute blood loss. Marked leukocytosis noted, most likely from infection around area of incision.
Lactate levels normal, very little suspicion for sepsis
Will check CT angiogram of lower right extremity for any abscess/signs of infection
Vision report confirms cellulitis along with some fluid filled seromas will await final report and admit patient
Chronic conditions affecting care: HTN, CAD, PVD, Kidney disease and Other (Vascular surgery)
<Thalia Lopez MD, Resident - Last Filed: 07/11/25 00:54>
*Pulse Oximetry
SaO2: 98
Patient hypoxic: no
*Critical Care Note
Total Time (30-74mins, 75-104mins- exclusive of procedures): Not Applicable
<Dennis Patel DO - Last Filed: 07/11/25 01:09>
Update Note
Update Note:
[address] noted report from vision noted cellulitis with seromas versus abscess, suspect he is going to require admission possibly operative intervention message sent to on-call vascular surgery
Patient and family updated, blood pressure is little soft here will start fluid resuscitation antibiotics check cultures
ED Attending Note
<Thalia Lopez MD, Resident - Last Filed: 07/11/25 00:54>
-
Portions of this chart may have been created with voice recognition software.� Occasional wrong word or��sound alike� substitutions may have occurred due to the inherent limitations of voice recognition software.
<Dennis Patel DO - Last Filed: 07/11/25 01:09>
ED Attending Note
Patient seen and examined by attending physician: Yes
I performed a history and physical exam of patient and discussed management with resident, I reviewed resident's note and agree with documented findings and plan of care.: Yes
ED Attending Note:
Seen with resident examined independently 74-year-old male status post fem pop bypass by Dr. Wright few weeks ago developed pain and redness at the surgical site no drainage sent in by visiting nurse, nontoxic appearing fairly tender/at the top of the
wound, will check labs, CT to rule out any collection and seroma abscess etc.
Discharge Plan
Departure
Prescriptions:
No Action
atorvastatin 80 mg Tablet
80 mg PO DAILY
clopidogrel 75 mg Tablet
75 mg PO DAILY
metoprolol succinate 25 mg Tablet Extended Release 24 Hr
25 mg PO DAILY
losartan-hydrochlorothiazide 50-12.5 mg Tablet
1 tab PO DAILY
cholecalciferol (vitamin D3) [Vitamin D3] 25 mcg (1,000 unit) Tablet
25 mcg PO DAILY
Men's 50 Plus Multivitamin 400-20-370 mcg Tablet
1 tab PO DAILY
aspirin 81 mg Tablet,Delayed Release (Dr/Ec)
81 mg PO DAILY Qty: 90 0RF
oxycodone 5 mg Tablet
5 mg PO Q4HPRN PRN (Reason: moderate pain) Qty: 10 0RF
cephalexin 500 mg Capsule
500 mg PO BID Qty: 7 0RF
Referrals:
Adelia Gonsalez MD [Family Provider]
Interventions
Interventions:
*Risk Screen - Suicide Last Done: 07/10/25 21:07
*Neglect/Abuse Screening Last Done: 07/10/25 21:07
ED-Skin Assessment Last Done: 07/11/25 00:36
Discharge Date and Time
Print Language: WELSH
[2025-07-10 23:10] LABS: Hematocrit 33.8 % (39.0-52.0); Hemoglobin 10.9 g/dL (13.0-18.0); Mean Corp Hgb Conc. 32.2 g/dL (33.0-37.0); Mean Corpuscular Volume 98.0 fL (80.0-94.0); Nucleated Red Blood Cells % 0 % (-); Platelet Count 300 10^3/uL (130-400); Red Cell Dist. Width 15.1 % (11.5-14.5)
[2025-07-10] MEDS: DILAUDID 1 MG IV (23:29)
[2025-07-10] MEDS: ZOFRAN 4 MG IV (23:29)
[2025-07-10 23:31] LABS: ALT (SGPT) 24 U/L (0-50); AST (SGOT) 25 U/L (17-59); Albumin 3.8 g/dl (3.5-5.0); Alkaline Phosphatase 66 U/L (38-126); Blood Urea Nitrogen 29 mg/dl (9-20); Calcium 9.3 mg/dl (8.4-10.2); Carbon Dioxide 25 mmol/L (22-30); Chloride 107 mmol/L (98-107); Glucose 123 mg/dl (70-99); Potassium 4.3 mmol/L (3.5-5.1); Sodium 138 mmol/L (135-145); Total Protein 6.8 g/dl (6.3-8.2); eGFR 53.07
[2025-07-10 23:34] VITALS: BP 89/56
[2025-07-11] VITALS (19 sets, daily range): BP systolic 85–118; BP diastolic 38–82; BMI 31.2; BMI 29.1
[2025-07-11] MEDS: ANCEF 10 IV (02:17)
[2025-07-11] MEDS: NSS 1000 IV ×3 (02:17→21:29)
--- NOTE | 2025-07-11 06:11 | HPS.HSE ---
Family Physician
-
Family Physician: Adelia Gonsalez
Chief Complaint
-
right leg erythema and edema and pain s/p RLE fem-pop 06/17/25
History of Present Illness
74-year-old male past medical history of hypertension, RI, CKD stage II, and recent vascular surgery (femoral-popliteal bypass surgery on his right upper thigh on 06/17 for symptoms of claudication) comes to the emergency department due to right
upper thigh swelling and redness around incision sites of his surgery. He states that the pain began this morning and the area is swollen and erythematous. He says that the pain is sharp and is mostly in that one area but sometimes can go up to
his groin area too. He says he has had no shortness of breath, difficulty breathing or chest pain. He does not have any fever or chills or any headaches. He took the oxycodone at 6 PM before coming to the hospital which relieved the pain a little
bit. He had just finished rehab for his surgery on Saturday, and returned home. Complaint with all meds. Was on post op antibiotics (keflex) until 06/29/25
ED treatment:
WBC 14.6
[address] consistent with cellulitis also with fluid collections medial thigh. could Be post op seroma.
Ancef iv given
Medical History
Past Medical History
Past Medical History: Reports CAD, HTN and RI
Additional Past Medical History:
CAD. h/o RI
Carotid stenosis
PVD
HLD
AAA
CKD stage 2
Past Surgical History: Reports Other (Right femoral to above-knee popliteal artery bypass with ipsilateral nonreversed greater saphenous vein conduit 06/17/25)
Social History
Tobacco: Smoker (10 cigs/day prior to surgery and rehab stay)
Alcohol: None
Drug: None
Personal:
Living: With Family
Employment: Retired
Family History
Family History: Not pertinent
Allergies / Home Medications
Allergies reflects when Allergies were last updated in [facility].
Home Medications with original date entered in [facility]
Allergy/Medication List:
Allergies
Allergy/AdvReac Type Severity Reaction Status Date / Time
No Known Allergies Allergy Verified 07/10/25 21:12
Home Medications
atorvastatin 80 mg tablet 80 mg PO DAILY High Cholesterol 06/15/25
cholecalciferol (vitamin D3) 25 mcg (1,000 unit) tablet (Vitamin D3) 25 mcg PO DAILY Supplement 06/15/25
clopidogrel 75 mg tablet 75 mg PO DAILY Blood Clot Prevention/Tx 06/15/25
losartan 50 mg-hydrochlorothiazide 12.5 mg tablet 1 tab PO DAILY Blood Pressure 06/15/25
metoprolol succinate 25 mg tablet,extended release 24 hr 25 mg PO DAILY Heart Disease/Condition 06/15/25
hcwapfolroah-vxe-cgxjq acid-vit K-lycop 400 mcg-20 mcg-370 mcg tablet (Men's 50 Plus Multivitamin) 1 tab PO DAILY Supplement 06/15/25
aspirin 81 mg tablet,delayed release 81 mg PO DAILY #90 tabs 06/21/25
oxycodone 5 mg tablet 5 mg PO Q4HPRN PRN moderate pain #10 tabs 06/21/25
Review of Systems
-
History Source: Patient
A 12 point ROS was completed and negative except as noted: Yes
Constitutional: Reports Other (pain and edema RLE)
EENT: Reports No Symptoms
Respiratory: Reports No Symptoms
Cardiac: Reports Other (low bp 90s/50s, edema RLE)
Abdomen/GI: Reports Constipated
: Reports Incontinence (wears incont briefs)
Musculoskeletal: Reports Edema (R thigh to foot)
Skin: Reports Other (Erythema RLE- thigh to foot, dry skin RLE)
Neurological: Reports No Symptoms
Endocrine: Reports No Symptoms
Hematologic/Lymphatic: Reports No Symptoms
Psych: Reports No Symptoms
Physical Exam
Vital Signs
Vital Signs
Temp Pulse Resp BP Pulse Ox
97.9 F 67 14 92/51 93
07/10/25 21:07 07/11/25 02:00 07/11/25 02:00 07/11/25 02:00 07/11/25 02:00
Physical Exam
General: Well Developed, Well Nourished and Pain
HEENT: NormoCephalic, Anicteric, Moist mucous membranes and Atraumatic
Respiratory: Clear
Cardiac: S1/S2 and Regular Rhythm
Breast: Deferred by me
GI: Soft, Non Distended and Normal Bowel Sounds
Rectal: Deferred by Provider
Genito-urinary: Deferred by me
Musculoskeletal: No Clubbing, No Cyanosis and Edema, Right Lower Extremity
Skin: Other (RLE with erythema, + 2 pedal edema, warm to touch, Steri strips to Right upper thigh Clean and dry, UPper thigh tender to touch)
Neuro: Awake, Alert, Oriented and AO x 3
Hematologic/Lymphatic: No Lymphadenopathy
Psych: Calm
Laboratory Results
-
07/10/25 23:00
07/10/25 23:00
Laboratory Results
Lactic Acid 1.4 mmol/L (0.7-2.0) 07/10/25 23:00
Total Bilirubin 0.7 mg/dl (0.2-1.3) 07/10/25 23:00
AST 25 U/L (17-59) 07/10/25 23:00
ALT 24 U/L (0-50) 07/10/25 23:00
Alkaline Phosphatase 66 U/L (38-126) 07/10/25 23:00
Data Reviewed
-
CT Scan: Report Reviewed by me and Discussed with Physician
Impression/Plan
-
IMPRESSION:
74-year-old male past medical history of hypertension, RI, CKD stage II, and recent vascular surgery (femoral-popliteal bypass surgery on his right upper thigh on 06/17) comes to the emergency department due to right upper thigh swelling and redness
around incision sites of his surgery. He states that the pain began this morning and the area is swollen and erythematous. CT RLE confirms cellulitis along with some fluid filled seromas (per vision report)
PLAN:
Admit to service of Dr Wu Hernández (vascular surgeon)
inpatient tele
# Cellulitis and post op seroma s/p Right femoral to above-knee popliteal artery bypass with ipsilateral nonreversed greater saphenous vein conduit 06/17/25
-WBC 14.6
-Ancef 2gm q8
-Pain control: dilaudid iv, tylenol
-NPO x meds pending vascular eval- may require I and D
#CAD
-cont asa, plavix, metoprolol
#HTN
- BP on low side. Was low post op as well (90/50s)
-hold losartan
-add parameters to metoprolol
#HLD
-cont atorvastatin
DVT proph: left scd only
full code
[2025-07-11] MEDS: DILAUDID 0.5 MG IV (06:27)
--- NOTE | 2025-07-11 07:41 | EDRN ---
this RN called the receiving unit and notified them that paper report was going to be tubed up, this RN attempted to perform medication reconciliation with the pt however the pt stated that he doesn't know all of his meds 'off the top of his head
and you should call my ', this RN called the pts to get the pts medication list and the pts did not answer, this RN also noticed that the pt was 91% on RA, this RN notified the provider and placed the pt on 2L NC, Sp02 came up to 97%,
the pt denies SOB and denies chest pain
--- NOTE | 2025-07-11 07:57 | CON.VAS ---
Consultation
Consultation Request
Date/Time Consultation Performed: 07/11/2025
Requesting Provider: Amanda
Performing Provider: Edgar
Reason for Consultation: right leg surgical site infection
Medical History
-
Chief Complaint: Sent to ED by home health nurse
History of Present Illness:
74 yo male
RLE bypass by Wright in June
Discharged end of June
Was home from rehab on Saturday. Visiting nurse on Saturday
Called me to communicate concerns over swelling and erythema involving the right thigh
Patient denies fevers/chills
Denies drainage
Reports otherwise feeling good
Allergies / Home Medications
Allergy/AdvReac Type Severity Reaction Status Date / Time
No Known Allergies Allergy Verified 07/10/25 21:12
�Medication �Instructions �Recorded �Confirmed �Type
atorvastatin 80 mg tablet 80 mg PO DAILY High Cholesterol 06/15/25 06/17/25 History
cholecalciferol (vitamin D3) 25 25 mcg PO DAILY Supplement 06/15/25 06/17/25 History
mcg (1,000 unit) tablet (Vitamin
D3)
clopidogrel 75 mg tablet 75 mg PO DAILY Blood Clot 06/15/25 06/17/25 History
Prevention/Tx
losartan 50 mg-hydrochlorothiazide 1 tab PO DAILY Blood Pressure 06/15/25 06/17/25 History
12.5 mg tablet
metoprolol succinate 25 mg 25 mg PO DAILY Heart 06/15/25 06/17/25 History
tablet,extended release 24 hr Disease/Condition
lcogzyitjozl-bdv-dddzx acid-vit 1 tab PO DAILY Supplement 06/15/25 06/17/25 History
K-lycop 400 mcg-20 mcg-370 mcg
tablet (Men's 50 Plus Multivitamin)
aspirin 81 mg tablet,delayed 81 mg PO DAILY #90 tabs 06/21/25 Rx
release
oxycodone 5 mg tablet 5 mg PO Q4HPRN PRN moderate pain 06/21/25 Rx
#10 tabs
cephalexin 500 mg capsule 500 mg PO BID #7 caps 06/25/25 Rx
Physical Exam
Vital Signs
Temp Pulse Resp BP Pulse Ox
98.5 F 55 21 94/58 96
07/11/25 07:42 07/11/25 07:45 07/11/25 07:45 07/11/25 07:42 07/11/25 07:45
Lab Results
07/10/25 23:00
07/10/25 23:00
Physical Exam
General: Other (NAD, non toxic. Non labored breathing. Alert/oriented. Right medial thigh with erythema, blanching. Edematous. No drainage. Right foot warm/pink.)
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
-
CTA personally reviewed. There is no radiology read yet. Bypass patent. Fluid collections in the saphenectomy bed. No air.
Surgical site infection post bypass, right leg
-Admit
-IV ABX and observation to start with
-Gentle hector wrap compression
-Home meds
-If does not improve he may need a washout of the saphenectomy incision.
PJF3
PM Vascular Surgery
[2025-07-11] MEDS: VANCOCIN 540 MG IV (08:49)
[2025-07-11] MEDS: VITAMIN D3 (cholecalciferol) 25 MCG PO (08:50)
--- NOTE | 2025-07-11 08:50 | PHA.VAN.IN ---
Assessment
- Assessment
Renal Function: SCR Appears Elevated from baseline
Maximum Temperature: 98.5
AUC Dosing Plan
- Dosing Variables
Dosing Weight (kg): 84
Dosing CrCl (ml/min): 44
Vd coefficient (L/kg): 0.7
- Empiric Dosing
Initial / Loading Dose: vancomycin 2000mg x 1
Maintenance Regimen: vancomycin 1000 mg Q24H
Estimated AUC (mcg*h/mL): 424
Estimated Peak (mcg*h/mL): 27.2
Estimated Trough (mcg/ml): 10.6
Estimated Half Life (H): 16.9
- Monitoring
No levels ordered at this time: consider levels in next few days
Pharmacokinetics Vancomycin I
- -
Patient Age: 74
Patient Sex: Male
Vancomycin Day #: 1
Indication: Skin And Soft Tissue
Requesting Provider: Wu Hernández
Pertinent Antimicrobial Allergies:
nkda
Height / Weight:
Height 5 ft 7 in
Actual Weight 84.141 kg
IBW in k.1
Adjusted BW in k.3
Pertinent Past Medical History: right leg surgical site infection
- Vital Signs / Lab Results
Temp Pulse Resp BP Pulse Ox
98.5 F 55 21 94/58 96
07/11/25 07:42 07/11/25 07:45 07/11/25 07:45 07/11/25 07:42 07/11/25 07:45
Lab Results - Hematology
07/10/25
23:00
WBC 14.6 H
Lab Results - Chemistry
07/10/25
23:00
BUN 29 H
Creatinine 1.4 H
Albumin 3.8
07/10/25
23:00
Lactic Acid 1.4
[2025-07-11] MEDS: ASPIR LOW (ENTERIC COATED) 81 MG PO (08:51)
[2025-07-11] MEDS: TOPROL XL PO (08:51)
[2025-07-11] MEDS: SENOKOT-S 1 TABLET PO ×2 (08:51→19:49)
[2025-07-11] MEDS: PLAVIX 75 MG PO (08:51)
[2025-07-11] MEDS: LIPITOR 80 MG PO (08:51)
--- NOTE | 2025-07-11 09:57 | CM ---
CM following re: discharge planning.
Reviewed pt's chart, met with pt.
Pt is a 74 year old male, admitted with primary dx of Surgical site infection post bypass, right leg. per Surgery, IV antibiotics and pt may need a washout of the saphenectomy incision if does not improve.
Pt reports he lives with spouse and stepdaughter 2SH, 4 steps to enter, ambulates with a walker and SPC. Pt reports he just [facility] on Saturday with [facility] and [facility] RN visited the pt on Saturday and
sent the pt to for evaluation.
Pt expressed his desire to return back home with resumptions of [facility] services. per [facility] social media content manager they will offer a bed if skilled services indicated.
PT and OT will evaluate the pt to determine a level of care at discharge.
PCP: Yuly Gonsalez
Pharmacy: [facility]
D/C plan: SNF vs VN.
CM will follow with discharge plan updates as hospitalization progresses
[2025-07-11] MEDS: ZOSYN 50 IV ×3 (11:19→21:27)
[2025-07-11] MEDS: DILAUDID 1 MG IV (12:41)
[2025-07-11] MEDS: ZOFRAN 4 MG IV (21:27)
[2025-07-11] MEDS: NSS 250 IV (22:42)
[2025-07-11] MEDS: COMPAZINE 5 MG IV (23:05)
--- NOTE | 2025-07-12 01:35 | PTCARENOTE ---
late entry 07/110 pt c/o N/V, B/P 85/47-60, repeat vs at 2300 99.1-61-22-95/47-100% 2LNC. PLASTIC BLOCK BOILER RELINER notified, EKG completed, IVF bolus 250cc given. see mar for medication administration.
[2025-07-12 03:03] VITALS: BP 100/47
[2025-07-12] MEDS: ZOSYN 50 IV ×4 (03:27→22:07)
[2025-07-12] MEDS: VANCOCIN 200 IV (05:28)
[2025-07-12 06:46] LABS: Hematocrit 29.3 % (39.0-52.0); Hemoglobin 9.3 g/dL (13.0-18.0); Mean Corp Hgb Conc. 31.7 g/dL (33.0-37.0); Mean Corpuscular Volume 99.7 fL (80.0-94.0); Nucleated Red Blood Cells % 0 % (-); Platelet Count 241 10^3/uL (130-400); Red Cell Dist. Width 14.8 % (11.5-14.5)
[2025-07-12 07:08] LABS: Blood Urea Nitrogen 23 mg/dl (9-20); Calcium 8.0 mg/dl (8.4-10.2); Carbon Dioxide 22 mmol/L (22-30); Chloride 113 mmol/L (98-107); Estimated Creatinine Clearance 47 ml/min; Glucose 122 mg/dl (70-99); Potassium 4.1 mmol/L (3.5-5.1); Sodium 139 mmol/L (135-145); eGFR 58.01
[2025-07-12 07:35] VITALS: BP 105/55
[2025-07-12] MEDS: NSS 1000 IV ×2 (08:44→20:27)
[2025-07-12] MEDS: ASPIR LOW (ENTERIC COATED) 81 MG PO (08:46)
[2025-07-12] MEDS: PLAVIX 75 MG PO (08:46)
[2025-07-12] MEDS: TOPROL XL 25 MG PO (08:46)
[2025-07-12] MEDS: LIPITOR 80 MG PO (08:46)
[2025-07-12] MEDS: SENOKOT-S 1 TABLET PO ×2 (08:46→20:27)
[2025-07-12] MEDS: VITAMIN D3 (cholecalciferol) 25 MCG PO (08:46)
--- NOTE | 2025-07-12 09:17 | PHA.VAN.FU ---
Vancomycin Assessment / Plan
- Assessment
Renal Function: SCR Decreasing
WBC's are: Trending Down
In the past 24 hrs, patient has been: Afebrile
Concomitant Antimicrobials: piperacillin/tazobactam
- Dosing Plan
Continue: Vanc 1000mg Q24H
- Monitoring Plan
No level(s) ordered at this time: consider levels in next few days
- Follow Up
Pharmacy will continue to follow.
Vancomycin Follow UP
- -
Patient Age: 74
Patient Sex: Male
Vancomycin Day #: 2
Indication: Skin And Soft Tissue
Requesting Provider: Wu Hernández
Pertinent Antimicrobial Allergies:
NKDA
Height / Weight:
Height 5 ft 7 in
Actual Weight 84.141 kg
Pertinent Past Medical History: CKD, PVD
- Vital Signs / Lab Results
Temp Pulse Resp BP Pulse Ox
98.9 F 67 20 105/55 99
07/12/25 07:35 07/12/25 08:46 07/12/25 07:35 07/12/25 08:46 07/12/25 07:35
Lab Results - Hematology
07/10/25 07/12/25
23:00 06:07
WBC 14.6 H 12.5 H
Lab Results - Chemistry
07/10/25 07/12/25
23:00 06:07
BUN 29 H 23 H
Creatinine 1.4 H 1.3
Estimated Creat Clear 47
Albumin 3.8
07/10/25
23:00
Lactic Acid 1.4
Microbiology Results
07/11/25 02:25 Blood Culture - Preliminary
Blood/Venous No Growth in 24 hours- Final report to follow
07/11/25 02:25 Blood Culture - Preliminary
Blood/Venous No Growth in 24 hours- Final report to follow
[2025-07-12 11:20] VITALS: BP 115/65
[2025-07-12] MEDS: DILAUDID 1 MG IV ×2 (11:57→20:30)
--- NOTE | 2025-07-12 12:17 | W.PN.VS ---
Addendum entered and electronically signed by Wu Hernández III, MD 07/12/25 13:08:
This patient was seen and examined in collaboration with KENDALL Hdz. I agree with the history and physical exam as well as the assessment and plan. I have the following additions:
Persistent erythema right medial thigh
Now with scant serous drainage from the medial thigh saphenectomy incision
He is nontoxic-appearing
White count down today compared to yesterday
Prepped the medial thigh incision with alcohol swab
Probed the incision at the site of drainage and entered into fluid cavity
Murky appearing hematoma drained
Culture swabs sent to microbiology
Gently packed the wound with gauze and covered with dry dressing
Continue ABX
Await Cx results
Change packing daily and as needed
Signed:
Wu Hernández III, MD
Vascular Surgery
[facility]
Original Note:
Today's Communication / Plan
-
Seen and assessed with Dr Hernández
Assessment/Plan
-
06/17/[address] Wright
07/11/25 admitted for cellulitis
Plan:
Dr Hernández made small opening at draining site, expressed serosang drainage with some purulence- sent cultures
We will re-dress wound tomorrow morning to reassess
Subjective Data
-
Date of Service: July 12, 2025
Pt seen at bedside this am with Dr Hernández. Pt resting comfortably. No events overnight.
Objective Data
-
Vital Signs
Temp Pulse Resp BP Pulse Ox
98.7 F 81 18 115/65 98
07/12/25 11:20 07/12/25 11:20 07/12/25 11:20 07/12/25 11:20 07/12/25 11:20
Intake and Output
07/11/25 07/12/25 07/13/25
06:59 06:59 06:59
Intake Total 3320 / 3320 290 / 290
Output Total 400 / 400 800 / 800 200 / 200
Balance -400 / -400 2520 / 2520 90 / 90
Intake:
Oral fluids 930 / 930 240 / 240
IV fluids (Total) 1450 / 1450
IV piggybacks 940 / 940 50 / 50
Output:
Urine, Voided 400 / 400 800 / 800 200 / 200
Lab Results
07/12/25 06:07
07/12/25 06:07
Calcium 8.0 mg/dl (8.4-10.2) L 07/12/25 06:07
Total Bilirubin 0.7 mg/dl (0.2-1.3) 07/10/25 23:00
AST 25 U/L (17-59) 07/10/25 23:00
ALT 24 U/L (0-50) 07/10/25 23:00
Alkaline Phosphatase 66 U/L (38-126) 07/10/25 23:00
Total Protein 6.8 g/dl (6.3-8.2) 07/10/25 23:00
Albumin 3.8 g/dl (3.5-5.0) 07/10/25 23:00
Physical Exam
-
AAOx3
No tachypnea
No tachycardia
Abd soft
Right thigh site with moderate erythema and induration. Painful to palpation. Small area of serous drainage mid incision.
[2025-07-12 16:00] VITALS: BP 91/41
[2025-07-12 19:17] VITALS: BP 93/54
[2025-07-12] MEDS: FLUSH (NSS) 1 FLUSH IV (20:31)
[2025-07-12 23:15] VITALS: BP 118/55
[2025-07-12] MEDS: ZOFRAN 4 MG IV (23:34)
[2025-07-13] MEDS: COMPAZINE 5 MG IV (00:43)
[2025-07-13 03:18] VITALS: BP 94/52
[2025-07-13] MEDS: DILAUDID 1 MG IV (03:29)
[2025-07-13] MEDS: ZOSYN 50 IV ×4 (03:30→21:27)
[2025-07-13] MEDS: VANCOCIN 200 IV (05:21)
[2025-07-13 07:10] VITALS: BP 99/60
--- NOTE | 2025-07-13 08:09 | PHA.VAN.FU ---
Addendum entered and electronically signed by Shobha Coleman Richi 07/13/25 16:02:
BUN & SCR ordered per protocol
Original Note:
Vancomycin Assessment / Plan
- Assessment
Renal Function: No New Labs Today
In the past 24 hrs, patient has been: Afebrile
Concomitant Antimicrobials: piperacillin/tazobactam
- Dosing Plan
Continue: Vanc 1000mg Q24H
- Monitoring Plan
No level(s) ordered at this time: consider levels in next few days
- Follow Up
Pharmacy will continue to follow.
Vancomycin Follow UP
- -
Patient Age: 74
Patient Sex: Male
Vancomycin Day #: 3
Indication: Skin And Soft Tissue
Requesting Provider: Wu Hernández
Pertinent Antimicrobial Allergies:
NKDA
Height / Weight:
Height 5 ft 7 in
Actual Weight 84.141 kg
Pertinent Past Medical History: CKD, PVD
- Vital Signs / Lab Results
Temp Pulse Resp BP Pulse Ox
98.3 F 71 17 94/52 95
07/13/25 03:18 07/13/25 03:18 07/13/25 03:18 07/13/25 03:18 07/13/25 03:18
Lab Results - Hematology
07/10/25 07/12/25
23:00 06:07
WBC 14.6 H 12.5 H
Lab Results - Chemistry
07/10/25 07/12/25
23:00 06:07
BUN 29 H 23 H
Creatinine 1.4 H 1.3
Estimated Creat Clear 47
Albumin 3.8
07/10/25
23:00
Lactic Acid 1.4
Microbiology Results
07/11/25 02:25 Blood Culture - Preliminary
Blood/Venous No Growth in 48 hours- Final report to follow
07/11/25 02:25 Blood Culture - Preliminary
Blood/Venous No Growth in 48 hours- Final report to follow
07/12/25 11:48 Gram Stain - Preliminary
Abscess
[2025-07-13] MEDS: VITAMIN D3 (cholecalciferol) 25 MCG PO (09:20)
[2025-07-13] MEDS: ASPIR LOW (ENTERIC COATED) 81 MG PO (09:20)
[2025-07-13] MEDS: PLAVIX 75 MG PO (09:20)
[2025-07-13] MEDS: SENOKOT-S 1 TABLET PO (09:20)
[2025-07-13] MEDS: TOPROL XL 25 MG PO (09:21)
[2025-07-13] MEDS: LIPITOR 80 MG PO (09:21)
[2025-07-13 11:35] VITALS: BP 99/50
[2025-07-13] MEDS: NSS IV ×3 (11:37→21:26)
[2025-07-13] MEDS: TYLENOL 650 MG PO (12:10)
--- NOTE | 2025-07-13 13:10 | W.PN.VS ---
Addendum entered and electronically signed by Wu Hernández III, MD 07/13/25 13:36:
This patient was seen and examined in collaboration with KENDALL Hdz. I agree with the history and physical exam as well as the assessment and plan. I have the following additions:
Erythema slightly improved right medial thigh
Packing removed. Serosanguineous fluid draining from the opening in the medial thigh
Repacked with dry gauze
Continue antibiotics
Follow-up on cultures
Daily packing change
Signed:
Wu Hernández III, MD
Vascular Surgery
[facility]
Original Note:
Today's Communication / Plan
-
Seen and assessed with Dr. Hernández
Assessment/Plan
-
06/17/[address] Wright
07/11/25 admitted for cellulitis
Plan:
Redressed/packed, we will reassess site again tomorrow
Follow cultures
Subjective Data
-
Date of Service: July 13, 2025
Patient seen at bedside this a.m. with Dr. Hernández. Patient offers no complaints at this time. No events overnight. Dressing remained dry.
Objective Data
-
Vital Signs
Temp Pulse Resp BP Pulse Ox
98.5 F 72 16 99/50 96
07/13/25 11:35 07/13/25 11:35 07/13/25 11:35 07/13/25 11:35 07/13/25 11:35
Intake and Output
07/12/25 07/13/25 07/14/25
06:59 06:59 06:59
Intake Total 3320 / 3320 440 / 440
Output Total 800 / 800 750 / 750
Balance 2520 / 2520 -310 / -310
Intake:
Oral fluids 930 / 930 240 / 240
IV fluids (Total) 1450 / 1450
IV piggybacks 940 / 940 200 / 200
Output:
Urine, Voided 800 / 800 750 / 750
Other:
Number of approximated MODERATE 1
amounts of urine
Number of unmeasured liquid
stools
Rectum 2
Lab Results
07/12/25 06:07
07/12/25 06:07
Calcium 8.0 mg/dl (8.4-10.2) L 07/12/25 06:07
Total Bilirubin 0.7 mg/dl (0.2-1.3) 07/10/25 23:00
AST 25 U/L (17-59) 07/10/25 23:00
ALT 24 U/L (0-50) 07/10/25 23:00
Alkaline Phosphatase 66 U/L (38-126) 07/10/25 23:00
Total Protein 6.8 g/dl (6.3-8.2) 07/10/25 23:00
Albumin 3.8 g/dl (3.5-5.0) 07/10/25 23:00
Physical Exam
-
AAOx3
No tachypnea
No tachycardia
Abd soft
Right thigh site with slightly less erythema and induration. Painful to palpation. Small open area packing removed, mild serosanguineous drainage noted
Area repacked and wrapped
[2025-07-13] MEDS: ROXICODONE 5 MG PO ×2 (14:52→21:49)
[2025-07-13 15:10] VITALS: BP 103/66
--- NOTE | 2025-07-13 15:38 | CM ---
CM reviewed chart, patient seen bedside with . Patient discussed he was recently discharged from [facility], was home with [facility] and now back in Hospital. Vascular Surgery following patient. Patient remains on IV antibiotics. CM
will continue for SNF vs VN needs upon discharge.
Plan; SNF verse return home with [facility]
[2025-07-13 19:13] VITALS: BP 99/48
[2025-07-13] MEDS: SENOKOT-S PO (21:26)
[2025-07-13 23:00] VITALS: BP 107/52
[2025-07-14 03:00] VITALS: BP 104/56
[2025-07-14] MEDS: ZOSYN 50 IV ×4 (05:06→21:19)
[2025-07-14] MEDS: VANCOCIN 200 IV (05:44)
[2025-07-14 07:07] LABS: Blood Urea Nitrogen 18 mg/dl (9-20); Estimated Creatinine Clearance 56 ml/min
[2025-07-14 07:20] VITALS: BP 115/57
[2025-07-14] MEDS: LIPITOR 80 MG PO (08:23)
[2025-07-14] MEDS: TOPROL XL 25 MG PO (08:23)
[2025-07-14] MEDS: PLAVIX 75 MG PO (08:23)
[2025-07-14] MEDS: VITAMIN D3 (cholecalciferol) 25 MCG PO (08:23)
[2025-07-14] MEDS: SENOKOT-S PO ×3 (08:23→21:19)
[2025-07-14] MEDS: ASPIR LOW (ENTERIC COATED) 81 MG PO (08:23)
--- NOTE | 2025-07-14 11:56 | W.PN.VS ---
Today's Communication / Plan
-
Seen and assessed with Dr. Wright
Assessment/Plan
-
06/17/[address] Wright
07/11/25 admitted for cellulitis
Plan:
Redressed/packed, we will reassess site again tomorrow
Follow cultures
Possible discharge tomorrow
Subjective Data
-
Date of Service: July 14, 2025
Patient seen at bedside examined Dr. Wright. Patient offers no complaints this time. No events overnight. Dressing remains intact.
Objective Data
-
Vital Signs
Temp Pulse Resp BP Pulse Ox
98.3 F 61 16 115/57 97
07/14/25 07:20 07/14/25 07:20 07/14/25 07:20 07/14/25 07:20 07/14/25 07:20
Intake and Output
07/13/25 07/14/25 07/15/25
06:59 06:59 06:59
Intake Total 440 / 440 1020 / 1020 598 / 598
Output Total 750 / 750 900 / 900 350 / 350
Balance -310 / -310 120 / 120 248 / 248
Intake:
Oral fluids 240 / 240 720 / 720 598 / 598
IV piggybacks 200 / 200 300 / 300
Output:
Urine, Voided 750 / 750 900 / 900 350 / 350
Other:
Number of approximated MODERATE 1 2
amounts of urine
Number of unmeasured liquid
stools
Rectum 2
Lab Results
07/12/25 06:07
07/14/25 06:13
Calcium 8.0 mg/dl (8.4-10.2) L 07/12/25 06:07
Total Bilirubin 0.7 mg/dl (0.2-1.3) 07/10/25 23:00
AST 25 U/L (17-59) 07/10/25 23:00
ALT 24 U/L (0-50) 07/10/25 23:00
Alkaline Phosphatase 66 U/L (38-126) 07/10/25 23:00
Total Protein 6.8 g/dl (6.3-8.2) 07/10/25 23:00
Albumin 3.8 g/dl (3.5-5.0) 07/10/25 23:00
Physical Exam
-
AAOx3
No tachypnea
No tachycardia
Abd soft
Right thigh site with with scant erythema. Painful to palpation. Small open area packing removed, mild serosanguineous drainage noted
Area repacked and wrapped
--- NOTE | 2025-07-14 14:58 | CM ---
Reviewed the chart notes and spoke with the patient at the bedside. Discussed discharge plans. Patient wants home with resumption of [facility]. Referral sent in [facility]. CM continues to be available to patient/family and is monitoring medical
plan for needs at discharge.
Plan: Discharge to home with resumption of [facility].
[2025-07-14 15:25] VITALS: BP 108/57
[2025-07-14] MEDS: ROXICODONE 5 MG PO (17:24)
[2025-07-14 19:06] VITALS: BP 104/66
[2025-07-14 23:15] VITALS: BP 116/61
[2025-07-15 03:06] VITALS: BP 127/66
[2025-07-15] MEDS: ZOSYN 50 IV ×2 (04:50→09:22)
[2025-07-15] MEDS: ROXICODONE 5 MG PO ×4 (04:50→19:23)
[2025-07-15 06:20] LABS: Hematocrit 28.8 % (39.0-52.0); Hemoglobin 9.5 g/dL (13.0-18.0); Mean Corp Hgb Conc. 33.0 g/dL (33.0-37.0); Mean Corpuscular Volume 96.0 fL (80.0-94.0); Platelet Count 244 10^3/uL (130-400); Red Cell Dist. Width 14.3 % (11.5-14.5)
[2025-07-15 06:45] LABS: Blood Urea Nitrogen 15 mg/dl (9-20); Calcium 8.4 mg/dl (8.4-10.2); Carbon Dioxide 23 mmol/L (22-30); Chloride 113 mmol/L (98-107); Estimated Creatinine Clearance 51 ml/min; Glucose 90 mg/dl (70-99); Potassium 4.0 mmol/L (3.5-5.1); Sodium 139 mmol/L (135-145); eGFR > 60.00
[2025-07-15 07:50] VITALS: BP 117/63
--- NOTE | 2025-07-15 08:13 | W.PN.VS ---
Addendum entered and electronically signed by Natalio Wright MD 07/15/25 09:57:
Seen and examined with [employer]. Agree with findings as noted below. Right thigh redness significantly improved. Wound packing change. Wound is clean. Foot is warm. Plan/as discussed and noted below.
Original Note:
Today's Communication / Plan
-
Patient seen and examined at bedside with Dr. Natalio Wright, below plan reviewed with attending.
Assessment/Plan
-
06/17/[address] Wright
07/11/25 admitted for cellulitis
Plan:
Redressed/packed, promising improvement will keep one more additional night for observation
PT
Likely discharge tomorrow on PO antibiotics
Case management consultation for VN and dispo planning
Subjective Data
-
Date of Service: July 15, 2025
Patient seen and examined at bedside, reports continued discomfort at RLE wound site. Denies nausea, vomiting, fever, and chills.
Objective Data
-
Vital Signs
Temp Pulse Resp BP Pulse Ox
98.6 F 61 17 127/66 98
07/15/25 03:06 07/15/25 03:06 07/15/25 03:06 07/15/25 03:06 07/15/25 03:06
Intake and Output
07/14/25 07/15/25 07/16/25
06:59 06:59 06:59
Intake Total 1020 / 1020 1178 / 1178
Output Total 900 / 900 750 / 750
Balance 120 / 120 428 / 428
Intake:
Oral fluids 720 / 720 1078 / 1078
IV piggybacks 300 / 300 100 / 100
Output:
Urine, Voided 900 / 900 750 / 750
Other:
Number of approximated MODERATE 2
amounts of urine
Number of unmeasured liquid
stools
Rectum 2
Lab Results
07/15/25 05:34
07/15/25 05:34
Calcium 8.4 mg/dl (8.4-10.2) 07/15/25 05:34
Total Bilirubin 0.7 mg/dl (0.2-1.3) 07/10/25 23:00
AST 25 U/L (17-59) 07/10/25 23:00
ALT 24 U/L (0-50) 07/10/25 23:00
Alkaline Phosphatase 66 U/L (38-126) 07/10/25 23:00
Total Protein 6.8 g/dl (6.3-8.2) 07/10/25 23:00
Albumin 3.8 g/dl (3.5-5.0) 07/10/25 23:00
Physical Exam
-
AAOx3
No tachypnea
No tachycardia
Abd soft
Right thigh site with with resolution of erythema. Painful to palpation. Small open area packing removed, mild serosanguineous drainage noted
Area repacked and wrapped
[2025-07-15] MEDS: VITAMIN D3 (cholecalciferol) 25 MCG PO (09:21)
[2025-07-15] MEDS: TOPROL XL 25 MG PO (09:21)
[2025-07-15] MEDS: ASPIR LOW (ENTERIC COATED) 81 MG PO (09:21)
[2025-07-15] MEDS: PLAVIX 75 MG PO (09:21)
[2025-07-15] MEDS: LIPITOR 80 MG PO (09:21)
[2025-07-15] MEDS: SENOKOT-S PO ×3 (09:22→20:10)
--- NOTE | 2025-07-15 11:03 | CM ---
Addendum entered by Kristen Gutierrez RN 07/15/25 15:38:
IMM reviewed and placed on chart.
Original Note:
Reviewed the chart notes and spoke with the patient at the bedside. Patient anticipates being discharged to home tomorrow. CM continues to be available to patient/family and is monitoring medical plan for needs at discharge.
Plan: Discharge to home with [facility] services.
[facility] fax: [phone]
[2025-07-15 11:15] VITALS: BP 108/58
[2025-07-15 14:37] VITALS: BP 118/59; PULSE 58
[2025-07-15 16:46] VITALS: BP 102/56
[2025-07-15] MEDS: ZOSYN IV ×4 (17:30→21:45)
[2025-07-15 23:00] VITALS: BP 117/59
--- NOTE | 2025-07-16 03:20 | PTCARENOTE ---
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 I spoke to the pt at 20:00 when he refused his Senna due to loose stools about the Zosyn which he at the time seemed open to taking, but when I went to administer it to him he refused. He also
refused the 07/16 dose as well.
[2025-07-16] MEDS: ZOSYN IV (04:00)
[2025-07-16 07:35] VITALS: BP 120/65
[2025-07-16] MEDS: LIPITOR 80 MG PO (08:44)
[2025-07-16] MEDS: PLAVIX 75 MG PO (08:44)
[2025-07-16] MEDS: ASPIR LOW (ENTERIC COATED) 81 MG PO (08:44)
[2025-07-16] MEDS: VITAMIN D3 (cholecalciferol) 25 MCG PO (08:44)
--- NOTE | 2025-07-16 08:44 | W.PN.VS ---
Addendum entered and electronically signed by Natalio Wright MD 07/16/25 08:58:
Seen and examined with ALEJANDRO Jacobo. Agree with findings as noted below. Right thigh stable. No significant redness. Packing change. Serous drainage but no purulence. Plan/as discussed and noted below. We will try to figure out best modality of
packing/wound management so that he can manage at home accordingly.
Original Note:
Today's Communication / Plan
-
Patient seen and examined bedside with Dr. Natalio Wright M.D., below plan reviewed with attending.
Assessment/Plan
-
06/17/[address] Wright
07/11/25 admitted for cellulitis
Plan:
Redressed/packed, can consider wound VAC placement so that patient and do not have to do daily dressing changes at home given that they have now indicated they will not be capable of changing and packing dressing.
PT
Case management and wound care consultation for possible wound VAC placement so the patient does not have to do daily dressing changes
Subjective Data
-
Date of Service: July 16, 2025
Patient seen and examined at bedside, reports vast improvement at right lower extremity saphenectomy site wound. Plan for discharge today, however patient has notified our team that he does not believe he is capable of changing his wet-to-dry
packing dressing daily at home and he also notes that his will not be capable of doing this either. He indicates he has no help at home for wound care.
Objective Data
-
Vital Signs
Temp Pulse Resp BP Pulse Ox
97.8 F 58 16 117/59 95
07/15/25 23:00 07/15/25 23:00 07/15/25 23:00 07/15/25 23:00 07/15/25 23:00
Intake and Output
07/15/25 07/16/25 07/17/25
06:59 06:59 06:59
Intake Total 1178 / 1178 1056 / 1056
Output Total 750 / 750 475 / 475
Balance 428 / 428 581 / 581
Intake:
Oral fluids 1078 / 1078 1056 / 1056
IV piggybacks 100 / 100
Output:
Urine, Voided 750 / 750 475 / 475
Other:
Number of approximated SMALL 1
amounts of urine
Number of approximated MODERATE 1
amounts of urine
Lab Results
07/15/25 05:34
07/15/25 05:34
Calcium 8.4 mg/dl (8.4-10.2) 07/15/25 05:34
Total Bilirubin 0.7 mg/dl (0.2-1.3) 07/10/25 23:00
AST 25 U/L (17-59) 07/10/25 23:00
ALT 24 U/L (0-50) 07/10/25 23:00
Alkaline Phosphatase 66 U/L (38-126) 07/10/25 23:00
Total Protein 6.8 g/dl (6.3-8.2) 07/10/25 23:00
Albumin 3.8 g/dl (3.5-5.0) 07/10/25 23:00
Physical Exam
-
AAOx3
No tachypnea
No tachycardia
Abd soft
Right thigh site with with resolution of erythema. Tender to palpation. Small open area packing removed, mild serosanguineous drainage noted
Area repacked and wrapped
[2025-07-16] MEDS: TOPROL XL 25 MG PO (08:46)
[2025-07-16] MEDS: SENOKOT-S PO (08:48)
--- NOTE | 2025-07-16 09:57 | WOUNDNOTE ---
WO RN note: Faxed home vac paper work to Kristyn Candelaria from [facility] requesting approval today. Await for approval. Joanna Jacobo, Vascular PA is planning to apply a vac dressing on today. Will switch to home vac if/when approved today. Updated CM
Elisabeth Carlson via tiger text; next home vac dressing change would be due on Saturday after today.
--- NOTE | 2025-07-16 10:34 | CM ---
Addendum entered by Elisabeth Carlson 07/16/25 12:47:
Home wound vac applied by WO
will be discharged to home today
IMM explained & signed. In chart
LM with Em at [facility]
referral updated
PLAN: Home with [facility] fax #: [phone]
to transport
Original Note:
patient seen at bedside
wound vac ordered & being placed by Joanna Jacobo
per WO paperwork faxed - await home vac approval
next vac change Saturday per WOCN
Spoke with Em from [facility] ([phone])
she request call [phone] if dc happens over weekend
referral in careport-accepted
updated careport
PLAN: Home with [facility] once home vac approved
[facility] fax #: [phone]
--- NOTE | 2025-07-16 10:45 | W.PN.UPDATE ---
Update Note
Progress Note Update
Wound VAC placed to right thigh saphenectomy drainage site, wound measurements are 3 cm longx 1.5 cm widex 1 cm depth, patient tolerated well in VAC holding suction. Area clean, dry, and intact.
[2025-07-16] MEDS: DILAUDID 1 MG IV (10:49)
[2025-07-16] MEDS: ZOSYN 50 IV (10:49)
[2025-07-16 12:49] VITALS: BP 116/62
--- NOTE | 2025-07-16 13:04 | WOUNDNOTE ---
WO RN note: Patient's ready fpc vac given to patient. Patient signed ready fpc vac proof of delivery form. Instructed patient and included via video call with patient's cell phone how to turn on/off home vac pump, change canister,
clamp/disconnect and reconnect/un-clamp vac tubing, how to trouble shoot vac alarm (i.e. Air leak). Instructed patient to call or [facility] vac tech support 24/06 for vac problems/concerns. Instructed patient if zoe bleeding occurs, to clamp and
disconnect vac tubing, turn off vac pump and call 911. Patient verbalized understanding. Patient's home vac connected to his vac dressing. [facility] vac ulta rental pump placed in 2S soiled utility room. Patient has a small L lateral heel dry
red ecchymotic area patient confirmed this is not new since admission. Skin on R heel and sacrum intact. Patient's heels off bed with pillow. He is on a [employer] air bed. He has an air chair cushion. Patient instructed pressure injury prevention
measures and to take his air chair cushion with him. Patient reports a good appetite. Patient to follow up with vascular surgeon. VN scheduled for next vac dressing R medial thigh change on Saturday. MARGARET Mclain in to see patient at end of visit. Joanna
Donnell V[facility] BALDOMERO aware patient is not connected to his home vac. Patient for discharge today.
--- NOTE | 2025-07-16 14:52 | WOUNDNOTE ---
WO RN note: Faxed Kristyn Candelaria from [employer] patient signed ready detention vac proof of delivery form (serial #[id number]). Notified [employer] via [employer] portal of stop bill date as of 07/16/24 and sisal picker of vac ulta pump rental
(serial #[id number]) which was placed earlier today by Vascular.
== END 2025-07-16 15:00 | disposition home health service (06) | DRG 863 ==
LOC: 2 SOUTH 06:16
PROVIDERS: Nurse Practitioner; Nurse Practitioner Family; ADMITTING PHYSICIAN Surgery Vascular Surgery; EMERGENCY PHYSICIAN Emergency Medicine; FAMILY PHYSICIAN Internal Medicine
PROC: 0Y9C0ZZ Drainage of Right Upper Leg, Open Approach (ICD-10-PCS; 2025-07-12)
DX: T81.41XA Infection following a procedure, superficial incisional surgical site, initial encounter (principal); L03.115 Cellulitis of right lower limb; Y83.8 Other surgical procedures as the cause of abnormal reaction of the patient, or of later complication, without mention of misadventure at the time of the procedure; E78.00 Pure hypercholesterolemia, unspecified; F17.210 Nicotine dependence, cigarettes, uncomplicated; N18.2 Chronic kidney disease, stage 2 (mild); I12.9 Hypertensive chronic kidney disease with stage 1 through stage 4 chronic kidney disease, or unspecified chronic kidney disease; I25.10 Atherosclerotic heart disease of native coronary artery without angina pectoris; Z79.02 Long term (current) use of antithrombotics/antiplatelets; Z79.82 Long term (current) use of aspirin
CPT/HCPCS: 73706; 80048; 80053; 82565; 83605; 84520; 85025; 85027; 87040; 87070; 87075; 87147; 87186; 87205; 93005; 96361; 96374; 96375; 97162; 99285; 99406; Q9967

== ENCOUNTER → 2025-07-28 12:54 | Outpatient (REF) | payer MEDICARE, SELFPAY | LOC: RAD 12:54 | PROVIDERS: ATTENDING PHYSICIAN Registered Nurse; FAMILY PHYSICIAN Internal Medicine | DX: I73.9 Peripheral vascular disease, unspecified (principal) | CPT/HCPCS: 93922; 93925 ==

== ENCOUNTER 2025-08-06 17:38 | Inpatient (IN) | payer MEDICARE, SELFPAY ==
[2025-08-06 14:26] VITALS: BP 146/73
[2025-08-06 15:33] VITALS: BMI 29.4
--- NOTE | 2025-08-06 15:37 | ED.GENMED ---
History of Present Illness
General
Chief Complaint: Vascular Symptoms
Source: patient, records, spouse and physician
Exam Limitations: none
Time Seen by Provider: 08/06/25 15:01
Nursing documentation reviewed up to this point in time: agreed with
History of Present Illness
History of Present Illness:
74-year-old male with history as noted presents to the ER for evaluation of right thigh pain, redness, swelling. Patient had right femoral to popliteal artery bypass in late June with Dr. Wright. Postoperative course complicated by infection of the
right medial thigh ultimately found to have infected hematoma that was drained. Was discharged with a wound VAC in place and wound VAC was removed last week. Over the past 2 days patient reports increased pain, redness, swelling once again. He
was apparently seen by Dr. Wright in the office today and could not tolerate I&D there�he was referred to the ER for admission for IV antibiotics with plan for more definitive I&D in the hospital. Aside from pain, redness, swelling in the thigh
patient denies other complaints�specifically he denies any fever or chills.
Past History
Past History
ED Past Medical History: CAD, Hypercholesterolemia, [place], Renal failure (CKD stage II) and Other (Abdominal artery aneurysm)
ED Past Surgical History: Cardiac and Other (Femoral-popliteal bypass 06/17)
Patient has exhibited threatening behavior?: No
Social History
Tobacco: Smoker
Review of Systems
Review of Systems
All Other Systems: ROS reviewed and negative except as documented in HPI and ROS
Constitutional: Denies fever or chills
Respiratory: Denies trouble breathing
Cardiac: Denies chest pain
ABD/GI: Denies abdominal pain
: Denies flank pain
Musculoskeletal: Denies neck pain or back pain
Skin: Reports other (Redness, pain, swelling right thigh)
Phy Exam
Physical Exam
Physical Exam:
General: Awake, alert, oriented x3; no acute distress
Head: Normocephalic, atraumatic
Eyes: Conjunctiva normal
Throat: Airway intact, handling secretions
Neck: Trachea midline, supple without meningismus
Lungs: Breathing comfortably no distress
Heart: Regular rate
Skin: Patient has large area of erythema, warmth, induration right medial thigh near prior surgical site; he has a small punctate opening with dark blood draining but no purulence noted; area is quite tender to the touch; no crepitus noted
Extremities: Patient has right lower extremity edema, skin findings right medial thigh as above; extremities warm and well-perfused
Scores
Heart Failure Risk
Heart Failure Risk Score: Not Applicable
Heart Score for Chest Pain Patients
STEMI patient?: Not applicable
Withdrawal Assessment of Alcohol
Withdrawal Assessment Completed?: Not applicable
Course
Orders/Labs/Results
Orders:
Orders
08/06/25 15:16
Vascular Surgery Consult Urgent
Consulting Provider: Wu Hernández III
Was physician already notified: Yes
Piperacillin/Tazo 3.375 Gram [Zosyn] 3.375 gram in 50 ml IV NOW
08/06/25 15:17
Vancomycin [Vancocin] 2,000 mg 0.9% Sodium Chloride 500 ml [Nss] 500 ml IV NOW
08/06/25 15:20
Acetaminophen [Tylenol] 650 mg PO NOW STA
08/06/25 15:24
Complete Blood Count/With Diff Urgent
Comprehensive Metabolic Panel Urgent
PTT Urgent
Prothrombin Time Urgent
08/06/25 15:33
Wound Culture [Wound/Abscess/Other Culture] Urgent
JEAN Source: Abscess
Specimen Description:
Date Specimen was Collected: 08/06/25
Time Specimen was Collected: 15:26
Vital Signs
Initial and Last Documented VS:
Initial Vital Signs
Temp Pulse Resp BP Pulse Ox
37.1 C 57 16 146/73 98
08/06/25 14:26 08/06/25 14:26 08/06/25 14:26 08/06/25 14:26 08/06/25 14:26
Last Documented Vital Signs
Temp Pulse Resp BP Pulse Ox
37.1 C 57 16 146/73 98
08/06/25 14:26 08/06/25 14:26 08/06/25 14:26 08/06/25 14:26 08/06/25 14:26
MDM/Problems Addressed
Differential Diagnosis Includes:
Cellulitis, abscess
MDM/Problems Addressed:
74-year-old male returns to the ER for postoperative infection right medial thigh. Sent in by vascular surgery with plan for incision and drainage. Recommending IV antibiotics and admission. Usual labs sent off. Updated vascular surgery
regarding patient's status here in the ER. Culture sent of drainage. Cover with broad-spectrum antibiotics upfront. Discussed with hospitalist for admission.
Chronic conditions affecting care:
PVD, CKD
*Pulse Oximetry
SaO2: 98
Oxygen Mode of Delivery: Room air
Patient hypoxic: no (98%)
*Critical Care Note
Total Time (30-74mins, 75-104mins- exclusive of procedures): Not Applicable
Data Reviewed
Review of Other/Old Records Reveals: Labs, Records, Operative Reports and Discharge Summary
Source: patient, records, spouse and family
Patient Management
Discussion with other providers: Hospitalist (Discussed with hospitalist) and Reel [employer]ade Bender Furnace Tender (Discussed with vascular surgery)
ED Attending Note
-
Portions of this chart may have been created with voice recognition software.� Occasional wrong word or��sound alike� substitutions may have occurred due to the inherent limitations of voice recognition software.
Discharge Plan
Departure
Patient Disposition: Admit
Date of Disposition: 08/06/25
Time of Disposition: 15:23
Admit to doctor: Syed
Presentation/result/management discussed w/ accepting MD/DO: Hospitalist
Discharge Problem:
Cellulitis of right lower extremity
Prescriptions:
No Action
atorvastatin 80 mg Tablet
80 mg PO DAILY
clopidogrel 75 mg Tablet
75 mg PO DAILY
metoprolol succinate 25 mg Tablet Extended Release 24 Hr
25 mg PO DAILY
cholecalciferol (vitamin D3) [Vitamin D3] 25 mcg (1,000 unit) Tablet
25 mcg PO DAILY
aspirin 81 mg Tablet,Delayed Release (Dr/Ec)
81 mg PO DAILY Qty: 90 0RF
acetaminophen 325 mg Tablet
650 mg PO Q4HPRN PRN (Reason: mild pain)
furosemide [Lasix] 20 mg Tablet
20 mg PO Q48H
Theragen Tablet
1 tab PO DAILY
Interventions
Interventions:
*Risk Screen - Suicide Last Done: 08/06/25 14:26
*Neglect/Abuse Screening Last Done: 08/06/25 14:26
Discharge Date and Time
Print Language: PALESTINIAN
[2025-08-06] MEDS: ZOSYN 50 IV ×2 (15:43→21:59)
[2025-08-06] MEDS: TYLENOL 650 MG PO (15:43)
[2025-08-06 15:46] LABS: Hematocrit 35.9 % (39.0-52.0); Hemoglobin 11.3 g/dL (13.0-18.0); Mean Corp Hgb Conc. 31.5 g/dL (33.0-37.0); Mean Corpuscular Volume 97.8 fL (80.0-94.0); Nucleated Red Blood Cells % 0 % (-); Platelet Count 292 10^3/uL (130-400); Red Cell Dist. Width 14.5 % (11.5-14.5)
[2025-08-06 15:51] LABS: APTT 29.2 Sec (23.4-35.0); INR 1.09; PT 14.4 Sec (11.4-14.6)
--- NOTE | 2025-08-06 16:16 | W.PN.UPDATE ---
Update Note
Progress Note Update
Patient seen and evaluated in office today, please see note below, history of right femoral to above knee to popliteal artery bypass, presents with concern for saphenectomy site infection on RLE. Plan to admit to hospital under medicine team given
multiple co morbidities, appreciate their help for medical management and will under go incision and drainage with washout tomorrow AM with Dr. Durant. NPO at midnight, antibiotics.
--- NOTE | 2025-08-06 16:21 | HPS.HSE ---
Addendum entered and electronically signed by Aiyana Lynch MD 08/06/25 18:22:
This is an addendum to H&P written by Nel Graves on 08/06/2025. �Patient seen and examined independently with resident.
74-year-old male past medical history of PAD, hypertension, CAD, CKD 2, presenting with pain, swelling and redness in the area of recent surgical site infection.
He had right femoro popliteal bypass on 06/17 complicated by surgical site infection in July. �Prior wound culture showed MSSA.
Vital signs show mild bradycardia.
Labs show stable anemia 11.3 hemoglobin.
Patient with recurrent surgical site infection of right inner thigh.
Wound culture pending. �Vancomycin/Zosyn. �N.p.o. past midnight for potential washout tomorrow as per vascular.
Original Note:
Family Physician
-
Family Physician: Adelia Gonsalez
Chief Complaint
-
redness, pain, swelling of inner right thigh
History of Present Illness
74 year old male with history of peripheral artery disease s/p Right femoro-popliteal bypass graft on 06/17/2025, complicated by surgical site infection for which he was admitted on 07/11, CAD, HTN, who presents with redness, swelling, and pain in
surgical site. Last wound change was yesterday by home health care. He reports having onset of pain, redness and swelling of inner right thigh yesterday. Was seen by vascular surgeon, Dr Wright, who sent him to the ED.
Medical History
Past Medical History
Past Medical History: Reports CAD, HTN and Other (CKD 2. peripheral artery disease)
Past Surgical History: Reports None
Social History
Tobacco: Former Smoker (Quit 6 weeks ago, 10 pk year)
Alcohol: None
Drug: None
Living: With Family
Family History
Family History: Not pertinent
Allergies / Home Medications
Allergies reflects when Allergies were last updated in [employer].
Home Medications with original date entered in [employer]
Allergy/Medication List:
Allergies
Allergy/AdvReac Type Severity Reaction Status Date / Time
No Known Allergies Allergy Verified 08/06/25 14:27
Home Medications
atorvastatin 80 mg tablet 80 mg PO DAILY High Cholesterol 06/15/25
cholecalciferol (vitamin D3) 25 mcg (1,000 unit) tablet (Vitamin D3) 25 mcg PO DAILY Supplement 06/15/25
clopidogrel 75 mg tablet 75 mg PO DAILY Blood Clot Prevention/Tx 06/15/25
metoprolol succinate 25 mg tablet,extended release 24 hr 25 mg PO DAILY Heart Disease/Condition 06/15/25
aspirin 81 mg tablet,delayed release 81 mg PO DAILY #90 tabs 06/21/25
acetaminophen 325 mg tablet 650 mg PO Q4HPRN PRN mild pain 07/11/25
furosemide 20 mg tablet (Lasix) 20 mg PO Q48H 08/06/25
therapeutic multivitamin 1 tab PO DAILY 08/06/25
Review of Systems
-
History Source: Patient
Constitutional: Denies Fever, Night Sweats or Chills
Respiratory: Denies Trouble Breathing
Cardiac: Denies Chest Pain, Diaphoresis, Palpitations or Syncope
Abdomen/GI: Denies Abdominal Pain, Nausea, Vomiting, Diarrhea, Constipated or Bloody Stools
: Denies Dysuria, Incontinence, Difficulty Voiding or Bleeding
Skin: Reports See HPI and Other
Neurological: Denies Dizzy
Physical Exam
Vital Signs
Vital Signs
Temp Pulse Resp BP Pulse Ox
98.8 F 57 16 146/73 98
08/06/25 14:26 08/06/25 14:26 08/06/25 14:26 08/06/25 14:26 08/06/25 15:43
Physical Exam
General: Well Nourished and No Apparent Distress
HEENT: NormoCephalic, Anicteric and Moist mucous membranes
Respiratory: Clear and Non Labored Respirations; No Wheezes, Rales, Rhonchi or Crackles
Cardiac: S1/S2, Regular Rhythm, Bradycardia, Peripheral Edema (bilateral) and Other (non-palpable left dorsalis pedis and posterior tibial pulses, also Not found with handheld doppler. Right dorsalis pedis/posterior tibial palpable); No Murmur, Rub
or Calf Tenderness
GI: Soft, Non Tender, Non Distended and Normal Bowel Sounds
Musculoskeletal: No Clubbing, No Cyanosis, Edema, Left Lower Extremity, Edema, Right Lower Extremity and Other (cap refill >3 secs bilateral LE. )
Skin: Other (large area of redness, swelling, warmth and tenderness of right inner thigh. Small area of tenderness of distal anterior left leg, mild brownish discoloration)
Neuro: Awake, Alert and Oriented
Psych: Calm
Laboratory Results
-
08/06/25 15:24
Laboratory Results
PT 14.4 Sec (11.4-14.6) 08/06/25 15:24
INR 1.09 08/06/25 15:24
APTT 29.2 Sec (23.4-35.0) 08/06/25 15:24
Impression/Plan
-
IMPRESSION:
74 year old male with history of peripheral artery disease s/p Right femoro-popliteal bypass graft on 06/17/2025, complicated by surgical site infection for which he was admitted on 07/11, CAD, HTN, who presents with recurrent right inner thigh
surgical site infection.
PLAN:
Recurrent right thigh surgical site infection:
Prior wound culture positive for MSSA
- Vanc and zosyn started in ED. Continue pending wound culture results
- Vascular consult
- To OR tomorrow for washout and wound vac placement
- NPO till midnight
- Will continue Asp and Plavix
- Intraoperative cultures will be of benefit
HTN:
- Continue Metoprolol
Bradycardia:
Mild, asymptomatic. Appears to be at baseline.
- Continue Metoprolol, monitor
CKD 2:
- Stable. Follow BMP
CAD:
- Remote history of [place]
- Continue Atorvastatin, Asp 81
Peripheral artery disease:
- Continue Asp/plavix
Chronic LE edema:
- Stable, Furosemide Q24
Recent nicotine use:
- Quit 6 weeks ago. Declines nicotine patch
DVT ppx: Lovenox
Code status: Full code
[2025-08-06 16:28] LABS: ALT (SGPT) 20 U/L (0-50); AST (SGOT) 25 U/L (17-59); Albumin 3.6 g/dl (3.5-5.0); Alkaline Phosphatase 86 U/L (38-126); Blood Urea Nitrogen 14 mg/dl (9-20); Calcium 8.9 mg/dl (8.4-10.2); Carbon Dioxide 26 mmol/L (22-30); Chloride 108 mmol/L (98-107); Estimated Creatinine Clearance 51 ml/min; Glucose 113 mg/dl (70-99); Potassium 4.0 mmol/L (3.5-5.1); Sodium 140 mmol/L (135-145); Total Protein 6.6 g/dl (6.3-8.2); eGFR > 60.00
[2025-08-06] MEDS: VANCOCIN 540 MG IV (16:39)
[2025-08-06 20:00] VITALS: BP 143/65
--- NOTE | 2025-08-06 21:19 | PHA.VAN.IN ---
Assessment
- Assessment
Renal Function: Appears similar to baseline
Concomitant Antimicrobials: Piperacillin/Tazo
- Previous Dosing Experience
Previous Regimen: 1000 MG IV Q24H
Date of Regimen: 07/12/2025
AUC Dosing Plan
- Dosing Variables
Dosing Weight (kg): 85
Dosing CrCl (ml/min): 51
Vd coefficient (L/kg): 0.7
- Empiric Dosing
Initial / Loading Dose: 2000 MG IV ~ 1645
Maintenance Regimen: 1000 MG IV Q24H
Estimated AUC (mcg*h/mL): 368
Estimated Peak (mcg*h/mL): 24.9
Estimated Trough (mcg/ml): 8.5
Estimated Half Life (H): 14.8
- Monitoring
No levels ordered at this time: Consider levels in next few days
Pharmacokinetics Vancomycin I
- -
Patient Age: 74
Patient Sex: Male
Vancomycin Day #: 1
Indication: Skin And Soft Tissue
Requesting Provider: Dr Ely Daley
Height / Weight:
Height 5 ft 7 in
Actual Weight 85 kg
Pertinent Past Medical History: CK stage II, Right thigh pain, redness, swelling
- Vital Signs / Lab Results
Temp Pulse Resp BP Pulse Ox
98.2 F 51 16 143/65 100
08/06/25 20:00 08/06/25 20:00 08/06/25 20:00 08/06/25 20:00 08/06/25 20:00
Lab Results - Hematology
08/06/25
15:24
WBC 8.7
Lab Results - Chemistry
08/06/25
15:24
BUN 14
Creatinine 1.2
Estimated Creat Clear 51
Albumin 3.6
Microbiology Results
08/06/25 15:33 Gram Stain - Preliminary
Abscess
[2025-08-06] MEDS: LOVENOX 40 MG SC (21:59)
[2025-08-06 23:06] VITALS: BP 140/68
[2025-08-06] MEDS: ROXICODONE 5 MG PO (23:10)
[2025-08-07] VITALS (11 sets, daily range): BP systolic 103–148; BP diastolic 49–76
[2025-08-07] MEDS: ZOSYN 50 IV ×4 (04:07→22:11)
[2025-08-07] MEDS: BACTROBAN 2% OINTMENT 1 APPLIC NASAL (06:16)
[2025-08-07] MEDS: PERIDEX 0.12% ORAL RINSE 15 ML PO (06:16)
[2025-08-07 06:49] LABS: Hematocrit 33.1 % (39.0-52.0); Hemoglobin 10.6 g/dL (13.0-18.0); Mean Corp Hgb Conc. 32.0 g/dL (33.0-37.0); Mean Corpuscular Volume 97.9 fL (80.0-94.0); Platelet Count 257 10^3/uL (130-400); Red Cell Dist. Width 14.4 % (11.5-14.5)
[2025-08-07 07:12] LABS: Blood Urea Nitrogen 14 mg/dl (9-20); Calcium 8.4 mg/dl (8.4-10.2); Carbon Dioxide 25 mmol/L (22-30); Chloride 111 mmol/L (98-107); Estimated Creatinine Clearance 51 ml/min; Glucose 86 mg/dl (70-99); Potassium 4.0 mmol/L (3.5-5.1); Sodium 140 mmol/L (135-145); eGFR > 60.00
--- NOTE | 2025-08-07 07:58 | W.PN.HOSP.TC ---
Today's Communication/Plan
-
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
Impression:
74 year old male with history of peripheral artery disease s/p Right femoro-popliteal bypass graft on 06/17/2025, complicated by surgical site infection for which he was admitted on 07/11, CAD, HTN, who presents with redness, swelling, and pain in
surgical site. Last wound change was yesterday by home health care. He reports having onset of pain, redness and swelling of inner right thigh yesterday. Was seen by vascular surgeon, Dr Wright, who sent him to the ED.
Status post right-thigh I&D
Assessment/plan:
Recurrent right thigh surgical site infection:
Prior wound culture positive for MSSA
Status post right thigh I&D on 08/07
Preliminary wound culture positive Staph aureus.
Continue vancomycin and Zosyn, pending wound
Will continue Asp and Plavix
Intraoperative cultures pending
Appreciate vascular surgery input
History of hypertension
- Continue Metoprolol (holding parameters)
Bradycardia:
Mild, asymptomatic. Appears to be at baseline.
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
Coronary artery disease
- Remote history of [place]
- Continue Atorvastatin, Asp 81
Peripheral artery disease:
- Continue Asp/plavix
Chronic LE edema:
- Stable, Furosemide Q24
Recent nicotine use:
- Quit 6 weeks ago. Declines nicotine patch
CODE STATUS: Full code
DVT prophylaxis: Lovenox
Diet: Cardiac
Disposition: Continue to biotic, pending final culture
Total time spent on today's encounter was 65 minutes which included time spent in counseling the patient/family regarding diagnosis and treatment plan as listed above, goals of care, and symptom management. Case was discussed with nursing staff,
specialists, and care coordinators/case management. All labs and imaging personally reviewed by me. Remainder the time spent in detailed review of previous records, lab data, imaging, and other medical provider documentation.
Anticipated Discharge: > 48 hours
Subjective/Interval History
-
Date of Service: August 07, 2025
Patient seen and examined at bedside, denies any chest pain or shortness of breath, no abdominal pain, no nausea, no vomiting, no diarrhea or constipation.
s/p right thigh I&D
Objective Data
-
Labs:
Laboratory Results
08/07/25
05:31
WBC 7.1
Hgb 10.6 L
Hct 33.1 L
Plt Count 257
Sodium 140
Potassium 4.0
Chloride 111 H
Carbon Dioxide 25
BUN 14
Creatinine 1.2
Glucose 86
Calcium 8.4
Vital Signs:
Vital Signs
Temp Pulse Resp BP Pulse Ox
98.4 F 53 18 143/62 95
08/07/25 07:34 08/07/25 07:34 08/07/25 07:34 08/07/25 07:34 08/07/25 07:34
I&O
08/06/25 08/07/25 08/08/25
06:59 06:59 06:59
Intake Total 400 / 400
Output Total 300 / 300
Balance 100 / 100
Physical Exam
-
General: Well Developed, Well Nourished, No Apparent Distress and Comfortable
HEENT: Normocephalic, Atraumatic, Moist Mucous Membranes, No Ptosis, PERRLA and Nose Appears Normal
Respiratory: Clear to Auscultation and Non Labored Respirations
Cardiac: Regular Rhythm and S1/S2
Breast: Deferred by me
GI: Soft, Nontender, Nondistended and Normal Bowel Sounds
Genito-urinary: No Costovertebral Tender
Musculoskeletal: Other (Right-sided dressing)
Skin: Warm
Neuro: Awake, Alert, Oriented, AO x 3 and No Motor Deficits
Psych: Calm
Data Reviewed
-
Diagnostic Radiology: Image personally visualized and interpreted and Report Reviewed by me
CT Scan: Image personally visualized and interpreted and Report Reviewed by me
Ultrasound: Image personally visualized and interpreted and Report Reviewed by me
MRI: Image personally visualized and interpreted and Report Reviewed by me
Medical Tests (Nuc Med, Echo etc): Image personally visualized and interpreted and Report Reviewed by me
Labs: Labs Reviewed by me
Old Records: Reviewed
--- NOTE | 2025-08-07 07:59 | PHA.VAN.FU ---
Vancomycin Assessment / Plan
- Assessment
Renal Function: Stable
WBC's are: WNL
In the past 24 hrs, patient has been: Afebrile
Concomitant Antimicrobials: zosyn
- Dosing Plan
Continue: 1000mg q24h
- Monitoring Plan
No level(s) ordered at this time: consider at steady state
- Follow Up
Pharmacy will continue to follow.
Vancomycin Follow UP
- -
Patient Age: 74
Patient Sex: Male
Vancomycin Day #: 2
Indication: Skin And Soft Tissue
Requesting Provider: Dr Ely Daley
Height / Weight:
Height 5 ft 7 in
Actual Weight 85 kg
Pertinent Past Medical History: CK stage II, Right thigh pain, redness, swelling
- Vital Signs / Lab Results
Temp Pulse Resp BP Pulse Ox
98.4 F 53 18 143/62 95
08/07/25 07:34 08/07/25 07:34 08/07/25 07:34 08/07/25 07:34 08/07/25 07:34
Lab Results - Hematology
08/06/25 08/07/25
15:24 05:31
WBC 8.7 7.1
Lab Results - Chemistry
08/06/25 08/07/25
15:24 05:31
BUN 14 14
Creatinine 1.2 1.2
Estimated Creat Clear 51 51
Albumin 3.6
Microbiology Results
08/06/25 15:33 Gram Stain - Preliminary
Abscess
--- NOTE | 2025-08-07 09:13 | W.IMMPOSTOP ---
Surgical Immed Post Op Note
-
Primary Surgeon: Carleen
Assisting Surgeon:
Pre-op Diagnosis: Right leg surgical site infection
Post-op Diagnosis: Same
Procedure Performed: I&D R thigh
Anesthesia Type: MAC
Specimen / Cultures:R thigh swab for culture
Estimated Blood Loss: 5cc
Complications: None
Operative Findings: Murky fluid with small tunnel. Packed with gauze
[2025-08-07] MEDS: DILAUDID 0.25 MG IV ×2 (09:18→09:36)
--- NOTE | 2025-08-07 09:53 | CM ---
CM following re: discharge planning.
Reviewed pt's chart, met with pt.
Pt is a 74 year old male, admitted with primary dx of Recurrent Surgical site infection post bypass, right leg. POD#0 s/p I&D R thigh. Continue supportive care.
Pt is well known to this CM from previous admission. Pt reports he lives with spouse and stepdaughter 2[facility], 4 steps to enter, ambulates with a walker and SPC. Pt reports he is current with [facility], was at [facility] in the past.
Pt expressed his desire to return back home with resumptions of [facility] services.
PT and OT will evaluate the pt to determine a level of care at discharge.
PCP: Yuly Gonsalez
Pharmacy: [facility]
D/C plan: SNF vs home with [facility].
CM will follow with discharge plan updates as hospitalization progresses
--- NOTE | 2025-08-07 10:04 | PTCARENOTE ---
Pt returned to [facility] at 0955 s/p Right leg washout. Pt slightly drowsy, arousable to verbal. Right upper leg with hector dressing c/d/i. Under dressing includes wet to dry, gauze, abd pads, and kerlix. Right dorsalis pedis pulse weak but palpable. 97%
on RA. Pt diet cholesterol lowering. Bed locked and in lowest position. Patient oriented to room and call almodovar. Care ongoing.
[2025-08-07] MEDS: LIPITOR 80 MG PO (10:18)
[2025-08-07] MEDS: ASPIR LOW (ENTERIC COATED) 81 MG PO (10:18)
[2025-08-07] MEDS: LASIX 20 MG PO (10:18)
[2025-08-07] MEDS: PLAVIX 75 MG PO (10:18)
[2025-08-07] MEDS: TOPROL XL PO (10:19)
[2025-08-07] MEDS: LOVENOX 40 MG SC (17:23)
[2025-08-07] MEDS: VANCOCIN 200 IV (17:23)
[2025-08-07] MEDS: ROXICODONE 5 MG PO (19:48)
[2025-08-07] MEDS: PEPCID 40 MG PO (23:10)
[2025-08-08 03:06] VITALS: BP 132/72
[2025-08-08] MEDS: ZOSYN 50 IV ×4 (04:40→21:12)
[2025-08-08 06:09] LABS: Hematocrit 31.8 % (39.0-52.0); Hemoglobin 10.0 g/dL (13.0-18.0); Mean Corp Hgb Conc. 31.4 g/dL (33.0-37.0); Mean Corpuscular Volume 97.8 fL (80.0-94.0); Platelet Count 245 10^3/uL (130-400); Red Cell Dist. Width 14.2 % (11.5-14.5)
[2025-08-08 06:40] LABS: Blood Urea Nitrogen 14 mg/dl (9-20); Calcium 8.3 mg/dl (8.4-10.2); Carbon Dioxide 27 mmol/L (22-30); Chloride 108 mmol/L (98-107); Estimated Creatinine Clearance 47 ml/min; Glucose 90 mg/dl (70-99); Potassium 3.9 mmol/L (3.5-5.1); Sodium 139 mmol/L (135-145); eGFR 58.01
--- NOTE | 2025-08-08 07:47 | PHA.VAN.FU ---
Vancomycin Assessment / Plan
- Assessment
Renal Function: Stable
WBC's are: WNL
In the past 24 hrs, patient has been: Afebrile
Concomitant Antimicrobials: ZOSYN
- Dosing Plan
Continue: 1000MG Q24H
- Monitoring Plan
Peak Level: 08/09 @2100
Trough Level: 08/10 @1730
- Follow Up
Pharmacy will continue to follow.
Vancomycin Follow UP
- -
Patient Age: 74
Patient Sex: Male
Vancomycin Day #: 3
Indication: Skin And Soft Tissue
Requesting Provider: Dr Ely Daley
Height / Weight:
Height 5 ft 7 in
Actual Weight 85 kg
Pertinent Past Medical History: CK stage II, Right thigh pain, redness, swelling
- Vital Signs / Lab Results
Temp Pulse Resp BP Pulse Ox
97.4 F 65 16 132/72 94
08/08/25 03:06 08/08/25 03:06 08/08/25 03:06 08/08/25 03:06 08/08/25 03:06
Lab Results - Hematology
08/06/25 08/07/25 08/08/25
15:24 05:31 05:33
WBC 8.7 7.1 8.3
Lab Results - Chemistry
08/06/25 08/07/25 08/08/25
15:24 05:31 05:33
BUN 14 14 14
Creatinine 1.2 1.2 1.3
Estimated Creat Clear 51 51 47
Albumin 3.6
Microbiology Results
08/07/25 08:45 Gram Stain - Preliminary
Leg - Right
08/06/25 15:33 Wound Culture - Preliminary
Abscess Staphylococcus aureus
Gram Stain - Preliminary
[2025-08-08 08:40] VITALS: BP 112/78
--- NOTE | 2025-08-08 08:42 | W.PN.VS ---
Today's Communication / Plan
-
POD 1 R thigh I&D
- continue ABx and follow up final cx
- daily wet to dry packing
- VAC tomorrow
Assessment/Plan
-
POD 1 R thigh I&D
- continue ABx and follow up final cx
- daily wet to dry packing
- VAC tomorrow
Subjective Data
-
Date of Service: August 08, 2025
POD 1 I&D R thigh
some discomfort to thigh
no fever
WBC 8
Gram + cocci on gram stain
no foot pain, numbness or weakness
Objective Data
-
Vital Signs
Temp Pulse Resp BP Pulse Ox
97.4 F 65 16 132/72 94
08/08/25 03:06 08/08/25 03:06 08/08/25 03:06 08/08/25 03:06 08/08/25 03:06
Intake and Output
08/07/25 08/08/25 08/09/25
06:59 06:59 06:59
Intake Total 400 / 400 1820 / 1820
Output Total 300 / 300 900 / 900
Balance 100 / 100 920 / 920
Intake:
Oral fluids 300 / 300 980 / 980
IV fluids (Total) 140 / 140
Normosal 100 / 100
IV piggybacks 100 / 100 700 / 700
Output:
Urine, Voided 300 / 300 900 / 900
Other:
Number of approximated MODERATE 1
amounts of urine
Lab Results
08/08/25 05:33
08/08/25 05:33
Calcium 8.3 mg/dl (8.4-10.2) L 08/08/25 05:33
Total Bilirubin 0.6 mg/dl (0.2-1.3) 08/06/25 15:24
AST 25 U/L (17-59) 08/06/25 15:24
ALT 20 U/L (0-50) 08/06/25 15:24
Alkaline Phosphatase 86 U/L (38-126) 08/06/25 15:24
Total Protein 6.6 g/dl (6.3-8.2) 08/06/25 15:24
Albumin 3.6 g/dl (3.5-5.0) 08/06/25 15:24
Physical Exam
-
Wound bed clean with small ooze
decreased erythema and edema to surrounding thigh
[2025-08-08] MEDS: LIPITOR 80 MG PO (08:53)
[2025-08-08] MEDS: ASPIR LOW (ENTERIC COATED) 81 MG PO (08:53)
[2025-08-08] MEDS: PLAVIX 75 MG PO (08:53)
[2025-08-08] MEDS: TOPROL XL 25 MG PO (08:54)
[2025-08-08] MEDS: ROXICODONE 5 MG PO ×2 (08:56→21:16)
[2025-08-08 11:40] VITALS: BP 138/72
--- NOTE | 2025-08-08 11:44 | W.PN.HOSP.TC ---
Today's Communication/Plan
-
Pending final sensitivity.
Continue current antibiotic.
VAC tomorrow
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
Impression:
74 year old male with history of peripheral artery disease s/p Right femoro-popliteal bypass graft on 06/17/2025, complicated by surgical site infection for which he was admitted on 07/11, CAD, HTN, who presents with redness, swelling, and pain in
surgical site. Last wound change was yesterday by home health care. He reports having onset of pain, redness and swelling of inner right thigh yesterday. Was seen by vascular surgeon, Dr Wright, who sent him to the ED.
Status post right-thigh I&D
Wound culture MSSA
Assessment/plan:
Recurrent right thigh surgical site infection:
Prior wound culture positive for MSSA
Status post right thigh I&D on 08/07
Preliminary wound culture positive Staph aureus.
Continue vancomycin and Zosyn,
Will continue Asp and Plavix
Intraoperative cultures pending
Appreciate vascular surgery input
Wound culture still showing MSSA, pending final sensitivity.
Vascular surgery recommending VAC tomorrow.
History of hypertension
- Continue Metoprolol (holding parameters)
Bradycardia:
Mild, asymptomatic. Appears to be at baseline.
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
Coronary artery disease
- Remote history of [place]
- Continue Atorvastatin, Asp 81
Peripheral artery disease:
- Continue Asp/plavix
Chronic LE edema:
- Stable, Furosemide Q24
Recent nicotine use:
- Quit 6 weeks ago. Declines nicotine patch
CODE STATUS: Full code
DVT prophylaxis: Lovenox
Diet: Cardiac
Disposition: Pending final sensitivity.
Continue current antibiotic.
VAC tomorrow
Total time spent on today's encounter was 65 minutes which included time spent in counseling the patient/family regarding diagnosis and treatment plan as listed above, goals of care, and symptom management. Case was discussed with nursing staff,
specialists, and care coordinators/case management. All labs and imaging personally reviewed by me. Remainder the time spent in detailed review of previous records, lab data, imaging, and other medical provider documentation.
Anticipated Discharge: 24 - 48 hours
Subjective/Interval History
-
Date of Service: August 08, 2025
Patient seen and examined at bedside, denies any chest pain or shortness of breath, no abdominal pain, no nausea, no vomiting, no diarrhea or constipation.
Objective Data
-
Labs:
Laboratory Results
08/08/25
05:33
WBC 8.3
Hgb 10.0 L
Hct 31.8 L
Plt Count 245
Sodium 139
Potassium 3.9
Chloride 108 H
Carbon Dioxide 27
BUN 14
Creatinine 1.3
Glucose 90
Calcium 8.3 L
Vital Signs:
Vital Signs
Temp Pulse Resp BP Pulse Ox
97.8 F 57 16 138/72 95
08/08/25 11:40 08/08/25 11:40 08/08/25 11:40 08/08/25 11:40 08/08/25 11:40
I&O
08/07/25 08/08/25 08/09/25
06:59 06:59 06:59
Intake Total 400 / 400 1820 / 1820
Output Total 300 / 300 900 / 900 200 / 200
Balance 100 / 100 920 / 920 -200 / -200
Physical Exam
-
General: Well Developed, Well Nourished, No Apparent Distress and Comfortable
HEENT: Normocephalic, Atraumatic, Moist Mucous Membranes, No Ptosis, PERRLA and Nose Appears Normal
Respiratory: Clear to Auscultation and Non Labored Respirations
Cardiac: Regular Rhythm and S1/S2
Breast: Deferred by me
GI: Soft, Nontender, Nondistended and Normal Bowel Sounds
Genito-urinary: No Costovertebral Tender
Musculoskeletal: Other (Right-sided dressing)
Skin: Warm
Neuro: Awake, Alert, Oriented, AO x 3 and No Motor Deficits
Psych: Calm
[2025-08-08 15:25] VITALS: BP 128/59
[2025-08-08] MEDS: LOVENOX 40 MG SC (17:22)
[2025-08-08] MEDS: VANCOCIN 200 IV (17:22)
[2025-08-08 19:10] VITALS: BP 122/70
[2025-08-08 23:09] VITALS: BP 116/72
[2025-08-09] VITALS (7 sets, daily range): BP systolic 116–158; BP diastolic 58–79; PULSE 56; O2SAT 96
[2025-08-09] MEDS: ROXICODONE 5 MG PO (02:56)
[2025-08-09] MEDS: ZOSYN 50 IV ×2 (03:26→09:05)
[2025-08-09] MEDS: ASPIR LOW (ENTERIC COATED) 81 MG PO (09:01)
[2025-08-09] MEDS: LASIX 20 MG PO (09:01)
[2025-08-09] MEDS: PLAVIX 75 MG PO (09:02)
[2025-08-09] MEDS: TOPROL XL 25 MG PO (09:02)
[2025-08-09 09:03] LABS: Hematocrit 34.8 % (39.0-52.0); Hemoglobin 11.5 g/dL (13.0-18.0); Mean Corp Hgb Conc. 33.0 g/dL (33.0-37.0); Mean Corpuscular Volume 94.3 fL (80.0-94.0); Platelet Count 230 10^3/uL (130-400); Red Cell Dist. Width 14.3 % (11.5-14.5)
[2025-08-09] MEDS: LIPITOR 80 MG PO (09:05)
[2025-08-09] MEDS: FLUSH (NSS) 2 FLUSH IV (09:07)
--- NOTE | 2025-08-09 09:30 | W.PN.VS ---
Addendum entered and electronically signed by Wu Hernández III, MD 08/09/25 15:20:
This patient was seen and examined in collaboration with KENDALL Kaiser. I agree with the history and physical exam as well as the assessment and plan.
Antibiotics
Wound VAC today
Signed:
Wu Hernández III, MD
Vascular Surgery
[facility]
Original Note:
Today's Communication / Plan
-
Patient seen and examined at bedside with Dr. Wu Hernández III, below plan reviewed with attending.
Assessment/Plan
-
POD 2 R thigh I&D
- continue ABx and follow up final cx
- Will place wound vac today
Subjective Data
-
Date of Service: August 09, 2025
Patient seen and examined at bedside, offers no complaints. Tolerating PO diet.
Objective Data
-
Vital Signs
Temp Pulse Resp BP Pulse Ox
98.2 F 63 18 132/58 98
08/09/25 07:00 08/09/25 09:02 08/09/25 07:00 08/09/25 09:02 08/09/25 07:00
Intake and Output
08/08/25 08/09/25 08/10/25
06:59 06:59 06:59
Intake Total 1820 / 1820 960 / 960 50 / 50
Output Total 900 / 900 650 / 650
Balance 920 / 920 310 / 310 50 / 50
Intake:
Oral fluids 980 / 980 560 / 560
IV fluids (Total) 140 / 140
Normosal 100 / 100
IV piggybacks 700 / 700 400 / 400 50 / 50
Output:
Urine, Voided 900 / 900 650 / 650
Other:
Number of approximated MODERATE 1 1
amounts of urine
Lab Results
08/09/25 08:38
08/08/25 05:33
Calcium 8.3 mg/dl (8.4-10.2) L 08/08/25 05:33
Total Bilirubin 0.6 mg/dl (0.2-1.3) 08/06/25 15:24
AST 25 U/L (17-59) 08/06/25 15:24
ALT 20 U/L (0-50) 08/06/25 15:24
Alkaline Phosphatase 86 U/L (38-126) 08/06/25 15:24
Total Protein 6.6 g/dl (6.3-8.2) 08/06/25 15:24
Albumin 3.6 g/dl (3.5-5.0) 08/06/25 15:24
Physical Exam
-
Afebrile
No apparent distress
No tachycardia
No dyspnea on room air
Right thigh dressing CDI
--- NOTE | 2025-08-09 09:43 | CON.ID ---
Addendum entered and electronically signed by Joanna Solorio MD 08/09/25 14:04:
I personally performed a history and physical exam of the patient and discussed management with the resident. I reviewed the resident's note and agree with mos of the documented findings and plan of care HPI/CC.
Reviewed today's wound photo: right thigh wound deep, clean, granulation tissue. + surrounding erythema
# Relapse R thigh saphenectomy site SSTI with MSSA
# Recent h/o R fem-pop bypass with ipsilateral saphenous vein 06/17/25
- 08/07 s/p OR I+D to subcutaneous tissue. OR cx MSSA
- De-escalate Zosyn to cefazolin 2gIV q8h.
- At time of discharge, transition to cephalexin 1000mg IV q8h x 14d.
Original Note:
Consultation
-
Date/Time Consultation Requested: 08/09/25 08: 46
Date/Time Consultation Performed: 08/09/2025 09:30
Requesting Provider: Dr. Pate
Performing Provider: Josep Das MD ; Joanna Solorio MD
Reason for Consultation: Right thigh surgical site infection
Chief Complaint / Past History
Chief Complaint
Redness and pain of right inner thigh
History of Present Illness
This is a 74-year-old male with known history of CAD, hypertension, CKD 2, peripheral artery disease s/p right femoral-popliteal bypass graft on 06/17/2025, complicated by surgical site infection for which he was admitted on 07/11 presented on
08/06/2025 in the emergency department with complaints of redness, swelling and pain at the surgery site. Reports that the pain and redness started on 08/05/2025. He follow with vascular surgeon Dr. King in the office on 08/06/2025 and could not
tolerate I&D in the office and was referred to the emergency department. Wound cultures were obtained and patient was started on vancomycin and Zosyn. He had right thigh I&D with vascular on 08/07/2025. George's states that the fluid was murky
with small tunnel and he was packed with gauze. Vascular recommended daily wet-to-dry packing and plan is for wound VAC today. Intraoperative culture showed MSSA.
Past History
Past Medical History: CAD, HTN and Other (PAD, CKD 2)
Past Surgical History: Other (Vascular)
Allergy History:
No Known Allergies Allergy (Verified 08/06/25 14:27)
Medications Reviewed: Yes
Current Antibiotics:
Zosyn
Social History
Tobacco: Former Smoker (With 6 weeks ago, 10 pack years)
Alcohol: None
Drug: None
Living: With Family
Family History
Family History: Not Pertinent
Review of Systems
Review of Systems
General: Negative Fever
Cardiovascular: Negative Chest Pain
Respiratory: Negative Dyspnea
Genital / Urological: Negative Dysuria
Musculoskeletal: Other (Right inner thigh pain; improving); Negative Joint Pain
Vital Signs
Temp Pulse Resp BP Pulse Ox
98.2 F 63 18 132/58 98
08/09/25 07:00 08/09/25 09:02 08/09/25 07:00 08/09/25 09:02 08/09/25 07:00
Physical Exam
Physical Exam
Constitutional: No Acute Distress and Comfortable
Cardiovascular: Regular Rate and S1/S2
Pulmonary: Clear and Non Labored
Musculoskeletal: Other (Right thigh dressing clean dry and intact. Minimal tenderness to touch)
Skin: Warm
Neurological: Awake, Alert and Oriented
Psychological: Calm
Lab / Diagnostic Study Results
08/09/25 08:38
08/08/25 05:33
Abs Immat Gran (auto) 0.0 10^3/uL (0-0.05) 08/06/25 15:24
Absolute Neuts (auto) 6.0 10^3/uL (1.4-6.5) 08/06/25 15:24
Absolute Lymphs (auto) 1.5 10^3/uL (1.2-3.4) 08/06/25 15:24
Absolute Monos (auto) 0.7 10^3/uL (0.1-0.6) H 08/06/25 15:24
Absolute Basos (auto) 0.1 10^3/uL (0-0.2) 08/06/25 15:24
Immature Gran % 0.3 % (0-0.5) 08/06/25 15:24
Neutrophils % 69.0 % (42.2-75.2) 08/06/25 15:24
Lymphocytes % 17.1 % (20.5-51.1) L 08/06/25 15:24
Monocytes % 7.9 % (1.7-9.3) 08/06/25 15:24
Eosinophils % 4.4 % (0-6) 08/06/25 15:24
Basophils % 1.3 % (0-2) 08/06/25 15:24
PT 14.4 Sec (11.4-14.6) 08/06/25 15:24
INR 1.09 08/06/25 15:24
Microbiology Results
Micro:
08/07/25 08:45 Wound Culture - Preliminary
Leg - Right S aureus-Methicillin Sensitive
Gram Stain - Preliminary
08/07/25 08:45 Anaerobic Culture - Preliminary
Leg - Right Culture pending. Anaerobic cultures are examined after 3
days incubation. Additional information to follow.
08/06/25 15:33 Wound Culture - Final
Abscess S aureus-Methicillin Sensitive
Gram Stain - Final
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
#Recurrent right thigh surgical site infection s/p Right femoro-popliteal bypass graft on 06/17/2025; s/p right thigh I&D on 08/07; intraoperative wound culture positive for MSSA
#ER wound culture positive for MSSA
#Prior wound culture ws +MSSA and he was on zosyn ip and dc on 07/16/25 on 7 days course of Augmentin 875/125
# PAD
# Smoker(quit 6 weeks ago)
-Currently on Zosyn day 4 ; received vanco for 2 days; switch to iv cefazolin 2g Q8h while in patient and transition to oral keflex for 2 weeks upon dc
-Vascular surgery recommending VAC today
--- NOTE | 2025-08-09 10:46 | W.PN.UPDATE ---
Update Note
Progress Note Update
Wound vac placed on patient. Wound clean and intact, dimensions W 5cm x L 2cmx D 2cm. Holding suction. Next change 08/11/25, wound care consulted.
--- NOTE | 2025-08-09 11:11 | CM ---
Reviewed the chart notes and spoke with the patient at the bedside. Patient with would vac to thigh. Would benefit from PT evaluation for discharge planning purposes. CM continues to be available to patient/family and is monitoring medical plan
for needs at discharge.
Plan: Discharge plans will depend on the patient's progress.
--- NOTE | 2025-08-09 12:12 | W.PN.HOSP.TC ---
Today's Communication/Plan
-
wound vac
narrow down abx-cefazolin
PT eval
start dispo planning
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
Impression:
74 year old male with history of peripheral artery disease s/p Right femoro-popliteal bypass graft on 06/17/2025, complicated by surgical site infection for which he was admitted on 07/11, CAD, HTN, who presents with redness, swelling, and pain in
surgical site. Last wound change was yesterday by home health care. He reports having onset of pain, redness and swelling of inner right thigh yesterday. Was seen by vascular surgeon, Dr Wright, who sent him to the ED.
Status post right-thigh I&D
Wound culture MSSA
Assessment/plan:
Recurrent right thigh surgical site infection:
Prior wound culture positive for MSSA
Status post right thigh I&D on 08/07
Preliminary wound culture positive Staph aureus.
MSSA discontinue Vanco. On Zosyn. ID consulted plan to discontinue Zosyn and start patient on cefazolin.
Plan for p.o. Keflex upon discharge for 2 weeks.
Will continue Asp and Plavix
Vascular surgery recommending VAC today
History of hypertension
- Continue Metoprolol (holding parameters)
Bradycardia:
Mild, asymptomatic. Appears to be at baseline.
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
Coronary artery disease
- Remote history of [place]
- Continue Atorvastatin, Asp 81
Peripheral artery disease:
- Continue Asp/plavix
Chronic LE edema:
- Stable, Furosemide Q24
Recent nicotine use:
- Quit 6 weeks ago. Declines nicotine patch
CODE STATUS: Full code
DVT prophylaxis: Lovenox
Diet: Cardiac
PT eval
d/w with spouse at bedside in details.
Anticipated Discharge: Within 24 hours
Subjective/Interval History
-
Date of Service: August 09, 2025
with good appetite
wound vac placed earlier today
Objective Data
-
Labs:
Laboratory Results
08/09/25
08:38
WBC 7.8
Hgb 11.5 L
Hct 34.8 L
Plt Count 230
Vital Signs:
Vital Signs
Temp Pulse Resp BP Pulse Ox
97.8 F 70 16 158/79 96
08/09/25 11:00 08/09/25 11:00 08/09/25 11:00 08/09/25 11:00 08/09/25 11:00
I&O
08/08/25 08/09/25 08/10/25
06:59 06:59 06:59
Intake Total 1820 / 1820 960 / 960 50 / 50
Output Total 900 / 900 650 / 650
Balance 920 / 920 310 / 310 50 / 50
Physical Exam
-
General: Well Developed, Well Nourished, No Apparent Distress and Comfortable
HEENT: Normocephalic, Atraumatic, Moist Mucous Membranes, No Ptosis and Nose Appears Normal
Respiratory: Non Labored Respirations
Breast: Deferred by me
GI: Soft, Nontender, Nondistended and Normal Bowel Sounds
Genito-urinary: No Costovertebral Tender
Musculoskeletal: Other (Right-sided dressing with wound vac )
Skin: Warm
Neuro: Awake, Alert, Oriented, AO x 3 and No Motor Deficits
Psych: Calm
Data Reviewed
-
Total Time Spent with Patient (in minutes): 55
[2025-08-09] MEDS: ANCEF 10 IV ×2 (13:11→22:45)
[2025-08-09] MEDS: FLUSH (NSS) 1 FLUSH IV (13:17)
--- NOTE | 2025-08-09 16:58 | WOUNDNOTE ---
WOC RN note: Faxed [employer] skilled nursing vac equipment request for approval to Kristyn Candelaria from [facility] and also to [employer].
[2025-08-09] MEDS: LOVENOX 40 MG SC (18:34)
[2025-08-10 03:12] VITALS: BP 158/74
[2025-08-10] MEDS: ANCEF 10 IV ×2 (06:04→13:34)
[2025-08-10 07:30] VITALS: BP 113/53
[2025-08-10] MEDS: ASPIR LOW (ENTERIC COATED) 81 MG PO (08:40)
[2025-08-10] MEDS: LIPITOR 80 MG PO (08:40)
[2025-08-10] MEDS: PLAVIX 75 MG PO (08:40)
[2025-08-10] MEDS: TOPROL XL 25 MG PO (08:40)
--- NOTE | 2025-08-10 09:37 | W.PN.VS ---
Today's Communication / Plan
-
Patient seen and examined at bedside with Dr. Wu Hernández III, below plan reviewed with attending.
Assessment/Plan
-
POD 3 R thigh I&D
Plan:
- Continue wound vac
- Wound care consulted to aid in home vac setup
- From a vascular perspective cleared for discharge once home vac established and arrived
- Follow up appointment placed in discharge instructions, we will sign off, please call with questions or concerns
Subjective Data
-
Date of Service: August 10, 2025
Patient seen and examined at bedside, offers no complaints. Endorses well managed pain at right leg.
Objective Data
-
Vital Signs
Temp Pulse Resp BP Pulse Ox
98.5 F 62 15 113/53 94
08/10/25 07:30 08/10/25 07:30 08/10/25 07:30 08/10/25 07:30 08/10/25 07:30
Intake and Output
08/09/25 08/10/25 08/11/25
06:59 06:59 06:59
Intake Total 960 / 960 530 / 530
Output Total 650 / 650 500 / 500
Balance 310 / 310 30 / 30
Intake:
Oral fluids 560 / 560 480 / 480
IV piggybacks 400 / 400 50 / 50
Output:
Urine, Voided 650 / 650 500 / 500
Other:
Number of approximated MODERATE 2
amounts of urine
Lab Results
08/09/25 08:38
08/08/25 05:33
Calcium 8.3 mg/dl (8.4-10.2) L 08/08/25 05:33
Total Bilirubin 0.6 mg/dl (0.2-1.3) 08/06/25 15:24
AST 25 U/L (17-59) 08/06/25 15:24
ALT 20 U/L (0-50) 08/06/25 15:24
Alkaline Phosphatase 86 U/L (38-126) 08/06/25 15:24
Total Protein 6.6 g/dl (6.3-8.2) 08/06/25 15:24
Albumin 3.6 g/dl (3.5-5.0) 08/06/25 15:24
Physical Exam
-
Afebrile
No apparent distress
No tachycardia
No dyspnea on room air
Right thigh wound vac, CDI, holding suction
--- NOTE | 2025-08-10 10:05 | CM ---
Addendum entered by Kristen Gutierrez RN 08/10/25 13:29:
Per [facility] note, waiting on home wound vac system.
Original Note:
Reviewed the chart notes and spoke with the patient at the bedside. IMM reviewed. Referral sent to [facility]. Patient's spouse will provide transportation home. CM continues to be available to patient/family and is monitoring medical plan for needs
at discharge.
Plan: Discharge to home with [facility] services.
[facility]
--- NOTE | 2025-08-10 11:10 | W.PN.HOSP.TC ---
Today's Communication/Plan
-
P.o. antibiotics for 2 weeks on discharge
Outpatient vascular surgery follow-up
Case management for wound VAC set up
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
Impression:
74 year old male with history of peripheral artery disease s/p Right femoro-popliteal bypass graft on 06/17/2025, complicated by surgical site infection for which he was admitted on 07/11, CAD, HTN, who presents with redness, swelling, and pain in
surgical site. Last wound change was yesterday by home health care. He reports having onset of pain, redness and swelling of inner right thigh yesterday. Was seen by vascular surgeon, Dr Wright, who sent him to the ED.
Status post right-thigh I&D
Wound culture MSSA
Assessment/plan:
Recurrent right thigh surgical site infection:
Prior wound culture positive for MSSA
Status post right thigh I&D on 08/07
Preliminary wound culture positive Staph aureus.
MSSA discontinue Vanco. On Zosyn. ID consulted plan to discontinue Zosyn and start patient on cefazolin.
Plan for p.o. Keflex upon discharge for 2 weeks.
Will continue Asa and Plavix
Vascular surgery s/p wound vac. Discussed with vascular surgery okay for discharge once wound VAC set up completed.
History of hypertension
- Continue Metoprolol (holding parameters)
Bradycardia:
Mild, asymptomatic. Appears to be at baseline.
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
Coronary artery disease
- Remote history of [place]
- Continue Atorvastatin, Asp 81
Peripheral artery disease:
- Continue Asp/plavix
Chronic LE edema:
- Stable, Furosemide Q24
Recent nicotine use:
- Quit 6 weeks ago. Declines nicotine patch
CODE STATUS: Full code
DVT prophylaxis: Lovenox
Diet: Cardiac
PT eval -home health.
More than 30 minutes spent in discharge including
Final examination of the patient
Summarizing hospital stay
Instructions for continuing care to all relevant caregivers
Preparation of discharge records, prescriptions, and referral forms
Total time spent (in minutes): 55
Anticipated Discharge: Today
Subjective/Interval History
-
Date of Service: August 10, 2025
Resting in bed
States feeling better and tolerating diet
No overnight events
Currently on wound VAC and tolerating it well
Objective Data
-
Vital Signs:
Vital Signs
Temp Pulse Resp BP Pulse Ox
98.5 F 62 15 113/53 94
08/10/25 07:30 08/10/25 07:30 08/10/25 07:30 08/10/25 07:30 08/10/25 08:38
I&O
08/09/25 08/10/25 08/11/25
06:59 06:59 06:59
Intake Total 960 / 960 530 / 530 480 / 480
Output Total 650 / 650 500 / 500
Balance 310 / 310 30 / 30 480 / 480
Physical Exam
-
General: Well Developed, Well Nourished, No Apparent Distress and Comfortable
HEENT: Normocephalic, Atraumatic, Moist Mucous Membranes, No Ptosis and Nose Appears Normal
Respiratory: Non Labored Respirations
Breast: Deferred by me
GI: Soft, Nontender, Nondistended and Normal Bowel Sounds
Genito-urinary: No Costovertebral Tender
Musculoskeletal: Other (Right-sided dressing with wound vac )
Skin: Warm
Neuro: Awake, Alert, Oriented, AO x 3 and No Motor Deficits
Psych: Calm
--- NOTE | 2025-08-10 11:12 | W.DCSUMMARY ---
Discharge Summary
Discharge Data
Date of Admission: 08/06/25
Date of Discharge: 08/10/25
-
Pending Results: No
Hospital Course
74 year old male with history of peripheral artery disease s/p Right femoro-popliteal bypass graft on 06/17/2025, complicated by surgical site infection for which he was admitted on 07/11, CAD, HTN, who presents with redness, swelling, and pain in
surgical site from surgery office. He reports having onset of pain, redness and swelling of inner right thigh, . Was seen by vascular surgeon, Dr Wright, who sent him to the ED. upon admission patient was started on antibiotic vancomycin and Zosyn.
Vascular surgery was following the patient and took him to the operating room status post I&D of the right thigh and cultures were obtained and sent to the lab. OR culture with MSSA. Infectious disease was consulted. Vancomycin and Zosyn was
de-escalated to cefazolin. Wound VAC was placed by vascular surgery. Antibiotic will be transition to p.o. Keflex for additional 2 weeks upon discharge. Patient will follow-up with vascular surgery for further wound care management.
Discharge Plan
-
Patient Disposition: Home with Home Care
Discharge Diagnosis/Procedures: Relapse R thigh saphenectomy site skin and soft tissue site infection with MSSA status post incision and debridement on 08/07/2025
Condition: Fair
Diet: Regular
Activity: As tolerated
Driving Restrictions: Not until seen by your Dr
Bathing Restrictions: OK to Shower
Activity Restrictions/Additional Instructions:
Wound Care Instructions
R thigh wound-negative pressure wound therapy (VAC)-use black foam, Change every 48 - 72 hours (i. e. [id number]) and prn if unable to obtain a seal. Low Intensity, Continuous at 125 mmHg. Upon discharge or transfer to another
facility, remove VAC foam and apply NS moistened gauze dressing unless home VAC unit available.
Elevate heels off bed with pillow/s
Follow up with Dr. Hernández.
Referrals:
Adelia Gonsalez MD [Family Provider] - in less than 1 week
Estrella Uribe CRNP [Specified Professional Personl, Vascular Surgery] - 08/24/25 2:00 pm
Prescriptions:
New
cephalexin 500 mg tablet
1,000 mg PO Q8H 14 Days Qty: 84 0RF
Continued
atorvastatin 80 mg Tablet
80 mg PO DAILY
clopidogrel 75 mg Tablet
75 mg PO DAILY
metoprolol succinate 25 mg Tablet Extended Release 24 Hr
25 mg PO DAILY
cholecalciferol (vitamin D3) [Vitamin D3] 25 mcg (1,000 unit) Tablet
25 mcg PO DAILY
aspirin 81 mg Tablet,Delayed Release (Dr/Ec)
81 mg PO DAILY Qty: 90 0RF
acetaminophen 325 mg Tablet
650 mg PO Q4HPRN PRN (Reason: mild pain)
furosemide [Lasix] 20 mg Tablet
20 mg PO Q48H
therapeutic multivitamin Tablet
1 tab PO DAILY
Discharge Orders:
Discharge Patient (As Directed); Ordered 08/10/25
Ordered By: Justice Pate
Discharge Date and Time
Discharge Date/Time: 08/10/25 18:37
Print Language: MALTESE
[2025-08-10 11:25] VITALS: BP 143/77
--- NOTE | 2025-08-10 11:28 | W.PN.ID1 ---
Addendum entered and electronically signed by Joanna Solorio MD 08/10/25 14:56:
Correction: At time of discharge, transition to cephalexin 1000mg PO (not IV) q8h x 14d.
Original Note:
Date of Service
Date of Service: August 10, 2025
Today's Communication
Continue cefazolin.
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
# Relapse R thigh saphenectomy site SSTI with MSSA
# PAD, Recent h/o R fem-pop bypass with ipsilateral saphenous vein 06/17/25
- 08/07 s/p OR I+D to subcutaneous tissue. OR cx MSSA
- Continue cefazolin 2gIV q8h.
- At time of discharge, transition to cephalexin 1000mg IV q8h x 14d.
Chief Complaint
-: Cellulitis and Other (abscess)
Subjective / Review of Systems
Thigh is OK. No complaints today.
Vital Signs / Physical Exam
Vital Signs
Vital Signs
Temp Pulse Resp BP Pulse Ox
98.5 F 62 15 113/53 94
08/10/25 07:30 08/10/25 07:30 08/10/25 07:30 08/10/25 07:30 08/10/25 08:38
Physical Exam
Constitutional: No Acute Distress and Comfortable
Cardiovascular: Regular Rate and S1/S2
Pulmonary: Clear
Gastrointestinal: Soft, Non Tender, Non Distended and Normal Bowel Sounds
Genito-Urinary: Negative CVA Tenderness
Wound: Other (R thigh wound vac in place)
Neurological: AO x 3
Objective Data
Lab Data
Lab Results
08/09/25 08:38
08/08/25 05:33
PT 14.4 Sec (11.4-14.6) 08/06/25 15:24
INR 1.09 08/06/25 15:24
APTT 29.2 Sec (23.4-35.0) 08/06/25 15:24
Estimated Creat Clear 47 ml/min 08/08/25 05:33
Total Bilirubin 0.6 mg/dl (0.2-1.3) 08/06/25 15:24
AST 25 U/L (17-59) 08/06/25 15:24
ALT 20 U/L (0-50) 08/06/25 15:24
Alkaline Phosphatase 86 U/L (38-126) 08/06/25 15:24
Most recent labs reviewed.
Micro Results:
08/07/25 08:45 Wound Culture - Preliminary
Leg - Right S aureus-Methicillin Sensitive
Gram Stain - Preliminary
08/07/25 08:45 Anaerobic Culture - Preliminary
Leg - Right Culture pending. Anaerobic cultures are examined after 3
days incubation. Additional information to follow.
08/06/25 15:33 Wound Culture - Final
Abscess S aureus-Methicillin Sensitive
Gram Stain - Final
[2025-08-10 15:15] VITALS: BP 138/65
--- NOTE | 2025-08-10 15:26 | WOUNDNOTE ---
NADER RN NOTE: Home vac unit approved and placed on patient, ready for discharge. Supplies at bedside to take home. Teaching done with patient regarding home vac unit and changing canister. Patient reports he has used home vac in past. Updated
[employer] website and faxed proof of delivery PW to [facility]. Hospital vac placed in soiled utility rm for pickup. Nurse Letty and MARGARET Gutierrez aware of the above.
== END 2025-08-10 18:37 | disposition home health service (06) | DRG 857 ==
LOC: 2 SOUTH 17:38
PROVIDERS: General Practice; Student in an Organized Health Care Education/Training Program; ADMITTING PHYSICIAN Hospitalist; ATTENDING PHYSICIAN Hospitalist; EMERGENCY PHYSICIAN Emergency Medicine; FAMILY PHYSICIAN Internal Medicine; OTHER PHYSICIAN Internal Medicine Infectious Disease
PROC: 0JBL0ZZ Excision of Right Upper Leg Subcutaneous Tissue and Fascia, Open Approach (ICD-10-PCS; 2025-08-07)
PROC: F08G5YZ Wound Management Treatment of Integumentary System - Lower Back / Lower Extremity using Other Equipment (ICD-10-PCS; 2025-08-09)
DX: T81.41XA Infection following a procedure, superficial incisional surgical site, initial encounter (principal); L02.415 Cutaneous abscess of right lower limb; L03.115 Cellulitis of right lower limb; E78.00 Pure hypercholesterolemia, unspecified; I25.10 Atherosclerotic heart disease of native coronary artery without angina pectoris; N18.2 Chronic kidney disease, stage 2 (mild); I12.9 Hypertensive chronic kidney disease with stage 1 through stage 4 chronic kidney disease, or unspecified chronic kidney disease; F17.200 Nicotine dependence, unspecified, uncomplicated; I73.9 Peripheral vascular disease, unspecified; B95.61 Methicillin susceptible Staphylococcus aureus infection as the cause of diseases classified elsewhere; R00.1 Bradycardia, unspecified; Y83.8 Other surgical procedures as the cause of abnormal reaction of the patient, or of later complication, without mention of misadventure at the time of the procedure; Y92.9 Unspecified place or not applicable; I25.2 Old myocardial infarction; Z95.828 Presence of other vascular implants and grafts; Z79.02 Long term (current) use of antithrombotics/antiplatelets; Z79.82 Long term (current) use of aspirin
CPT/HCPCS: 11042; 80048; 80053; 85025; 85027; 85610; 85730; 87070; 87075; 87147; 87186; 87205; 96365; 96366; 96367; 97162; 99285